=== PATIENT | male | born 1990 | race Caucasian/White ===

== ENCOUNTER 2020-02-20 10:09 | Emergency (ER) | payer OTHER, SELFPAY ==
[2020-02-20 10:17] VITALS: BP 128/88; PULSE 112; RESP 18; O2SAT 100; BMI 32.3
--- NOTE | 2020-02-20 10:34 | XR_ITS ---
EXAMINATION: XR CHEST CLINICAL INFORMATION: Pleuritic chest pain COMPARISON: Previous chest x-ray April 2018 TECHNIQUE: Frontal view of the chest was obtained. FINDINGS: No significant abnormality is noted involving the heart, lungs, mediastinum, bony thorax or soft tissues. XR/XR chest 1V IMPRESSION: Unremarkable examination.
--- NOTE | 2020-02-20 10:35 | ED.ABDPAIN ---
HPI - Abdominal Pain General Chief Complaint: Abdominal Pain Stated Complaint: abd and back pain Time Seen by Provider: 02/20/20 10:14 Source: patient Mode of arrival: ambulatory Limitations: no limitations History of Present Illness HPI narrative: 29 y/o male with history of anxiety, depression, alcohol abuse and dependence, and HTN presents to the ED with 2 days of right sided abdominal pain that started after a prolonged drinking binge. He states he has not had any alcohol in the last 2 days due to the pain. It is constant and has migrated from RUQ to his right flank and now his middle back. He denies N/V, diarrhea, fever, chills. MD elicited complaint: abdominal pain Onset (ago): day(s) (2) Pain Consistency: constant Location: RUQ Severity: moderate Quality: aching Migration to: R flank and other (back) Exacerbating factors: other (deep inspiration ) Relieving factors: nothing Context: history of similar episodes Associated symptoms: denies other symptoms Related Data Previous Rx's Medication Instructions Recorded alprazolam 1 mg tablet 1 mg PO TID PRN #90 tab 12/18/19 lisinopril 20 mg tablet 20 mg PO DAILY #90 tab 12/25/19 Allergies Allergy/AdvReac Type Severity Reaction Status Date / Time No Known Allergies Allergy Unverified 11/21/19 16:33 [No Known Allergies*] Review of Systems Review of Systems Constitutional: No Fever, No Chills ENT/Mouth: No sore throat, No Swallowing Difficulty Cardiovascular: No Chest Pain, + SOB (due to abd pain), No Orthopnea, No Edema Respiratory: No Cough, No Sputum, No Wheezing, No dyspnea Gastrointestinal: No Nausea, No Vomiting, No Diarrhea, + abdominal Pain, No Hematochezia, No Melena Genitourinary: No Dysuria, No Urinary Frequency, No Hematuria Musculoskeletal: No joint pain, No Myalgias Skin: No Skin Lesions, + rash (chronic RUE_ Neuro: No Weakness, No Dizziness, No Headache Psych: + Anxiety/Panic, + Depression Heme/Lymph: No Bruising, No Lymphadenopathy Endocrine: No Polyuria, No Polydipsia Physical Exam Vital Signs: Vital Signs: Last Vital Signs Temp 98.2 F 02/20/20 12:00 Pulse 95 02/20/20 12:00 Resp 16 02/20/20 12:00 BP 138/81 02/20/20 12:00 Pulse Ox 99 02/20/20 12:00 Body Mass Index 32.3 Appearance: Alert. Oriented X3. No acute distress. Eyes: Pupils equal, round and reactive to light. ENT: Pharynx normal. Neck: Normal inspection. Neck supple. CVS: Tachycardic, regular rhythm. Pulses normal. Respiratory: No respiratory distress. Breath sounds normal. Abdomen: Soft and nontender. no hepatosplenomegaly. +BS x4 Skin: Skin warm and dry. entire right upper extremity with erythematous macular rash, slightly warm to touch, non-tender, no excoriations, papules, or pustules. NV intact. Extremities: No lower extremity edema. Neuro: Oriented X 3. No motor deficit. No sensory deficit. Course Course Course Narrative: 29 y/o male with history of alcoholism presenting with right RUQ pain that radiates to his back. Pain is worse with deep inspiration. No N/V/D. Tachycardic on arrival but non-toxic appearing, question early ETOH withdrawal, slightly anxious. Abd exam is benign. Will check LFTs, lipase, CBC, chem 10 as well as CXR given his symptoms are worse with deep breathing. No COVID symptoms. Dispo pending results and improvement. Reevaluation(s) Reevaluation #1: Lab workup is unremarkable aside from slightl AST/ALT elevation consistent with mild alcoholic hepatitis. Bilirubins and lipase are normal. Will get abd u/s for further evalution. Reevaluation #2: Abd U/S shows normal pancreas, no gallbladder stone, wall thickening or ductal dilitation, no right hydronephrosis. Discussed imaging and lab results with patient. We discussed ETOH as main culprit for his pain, discussed possible alcoholic hepatitis and importance of abstinence. He is willing to discuss detox options with [facility]. Reevaluation #3: Patient declined detox at this time. MAT information provided to patient and he expressed understanding that he needs to make the effort and call. He is stable for discharge. 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 Lab Data Attestation: I reviewed the patient's lab results. Result diagrams: 02/20/20 10:38 02/20/20 10:38 Labs: Lab Results 02/20/20 02/20/20 02/20/20 Range/Units 10:38 10:38 10:46 WBC 9.7 (4.8-10.8) X10*3/uL RBC 4.79 (4.60-5.80) X10*6/uL Hgb 15.9 (14.0-18.0) g/dl Hct 47.1 (42-52) % MCV 98.3 H (80-98) fL MCH 33.2 H (27.0-33.0) pg MCHC 33.8 (31.0-36.0) g/dl RDW 12.5 (11.0-16.0) % Plt Count 331 (160-400) X10*3/uL MPV 8.8 L (9.4-12.4) fL Immature Gran % (Auto) 0.8 H (0.0-0.4) % Neut % (Auto) 65.5 (45-73) % Lymph % (Auto) 15.4 L (20-40) % [place] % (Auto) 16.7 H (2-11) % Eos % (Auto) 1.0 (0-4) % Baso % (Auto) 0.6 (0-2) % Lymph # (Auto) 1.5 (1.2-4.9) X10*3/uL [place] # (Auto) 1.6 H (0.1-1.2) X10*3/uL Eos # (Auto) 0.1 (0.0-0.4) X10*3/uL Baso # (Auto) 0.1 (0.0-0.2) X10*3/uL Abs Immat Gran (auto) 0.08 H (0.00-0.03) X10*3/uL Absolute Neuts (auto) 6.4 (2.0-8.3) X10*3/uL Absolute Nucleated RBC 0.000 (0.0-0.012) X10*3/uL Nucleated RBC % (auto) 0.0 (0.0-0.2) /100WBC Smear Tech's Comments VERIFIED Sodium 137 (135-145) mmol/L Potassium 4.1 (3.3-5.1) mmol/l Chloride 104 (96-108) mmol/L Carbon Dioxide 22 (22-29) mmol/L Anion Gap 15 (12-20) BUN 8 L (9-16) mg/dL Creatinine 0.58 (0.5-1.4) mg/dL Estim Creat Clear Calc 228.9 Estimated GFR > 60 Random Glucose 101 (60-115) mg/dL Calcium 9.0 (8.4-10.2) mg/dL Magnesium 1.9 (1.6-2.6) mg/dL Total Bilirubin 1.0 (0.0-1.0) mg/dL Direct Bilirubin 0.4 (0.0-0.5) mg/dL AST 57 H (5-37) U/L ALT 153 H (0-40) U/L Alkaline Phosphatase 64 (39-117) U/L Total Protein 6.7 (6.5-8.0) g/dL Albumin 4.2 (3.5-5.0) g/dL Lipase 27 (8-78) U/L Urine Color YELLOW Urine Appearance HAZY Urine pH 7.0 (5.0-8.0) Ur Specific [place] 1.020 (1.005-1.025) Urine Protein NEG (NEG-TRACE) MG/DL Urine Glucose (UA) NEG (NEG) MG/DL Urine Ketones NEG (NEG) MG/DL Urine Blood NEG (NEG) Urine Nitrite NEG (NEG) Ur Leukocyte Esterase NEG (NEG) Urine Opiates Screen (Not Detect) Ur Barbiturates Screen (Not Detect) Ur Phencyclidine Scrn (Not Detect) Ur Amphetamines Screen (Not Detect) U Benzodiazepines Scrn (Not Detect) Urine Cocaine Screen (Not Detect) U Marijuana (THC) Screen (Not Detect) 02/20/20 Range/Units 10:47 WBC (4.8-10.8) X10*3/uL RBC (4.60-5.80) X10*6/uL Hgb (14.0-18.0) g/dl Hct (42-52) % MCV (80-98) fL MCH (27.0-33.0) pg MCHC (31.0-36.0) g/dl RDW (11.0-16.0) % Plt Count (160-400) X10*3/uL MPV (9.4-12.4) fL Immature Gran % (Auto) (0.0-0.4) % Neut % (Auto) (45-73) % Lymph % (Auto) (20-40) % [place] % (Auto) (2-11) % Eos % (Auto) (0-4) % Baso % (Auto) (0-2) % Lymph # (Auto) (1.2-4.9) X10*3/uL [place] # (Auto) (0.1-1.2) X10*3/uL Eos # (Auto) (0.0-0.4) X10*3/uL Baso # (Auto) (0.0-0.2) X10*3/uL Abs Immat Gran (auto) (0.00-0.03) X10*3/uL Absolute Neuts (auto) (2.0-8.3) X10*3/uL Absolute Nucleated RBC (0.0-0.012) X10*3/uL Nucleated RBC % (auto) (0.0-0.2) /100WBC Smear Tech's Comments Sodium (135-145) mmol/L Potassium (3.3-5.1) mmol/l Chloride (96-108) mmol/L Carbon Dioxide (22-29) mmol/L Anion Gap (12-20) BUN (9-16) mg/dL Creatinine (0.5-1.4) mg/dL Estim Creat Clear Calc Estimated GFR Random Glucose (60-115) mg/dL Calcium (8.4-10.2) mg/dL Magnesium (1.6-2.6) mg/dL Total Bilirubin (0.0-1.0) mg/dL Direct Bilirubin (0.0-0.5) mg/dL AST (5-37) U/L ALT (0-40) U/L Alkaline Phosphatase (39-117) U/L Total Protein (6.5-8.0) g/dL Albumin (3.5-5.0) g/dL Lipase (8-78) U/L Urine Color Urine Appearance Urine pH (5.0-8.0) Ur Specific [place] (1.005-1.025) Urine Protein (NEG-TRACE) MG/DL Urine Glucose (UA) (NEG) MG/DL Urine Ketones (NEG) MG/DL Urine Blood (NEG) Urine Nitrite (NEG) Ur Leukocyte Esterase (NEG) Urine Opiates Screen Not Detected (Not Detect) Ur Barbiturates Screen Not Detected (Not Detect) Ur Phencyclidine Scrn Not Detected (Not Detect) Ur Amphetamines Screen Not Detected (Not Detect) U Benzodiazepines Scrn POSITIVE H (Not Detect) Urine Cocaine Screen Not Detected (Not Detect) U Marijuana (THC) Screen Not Detected (Not Detect) Critical Care Time Critical Care Time Critical Care Time: No Discharge Plan Discharge Clinical Impression: Transaminitis Alcohol dependence Qualifiers: Substance use status: alcohol-induced mood disorder Qualified Code(s): F10.24 - Alcohol dependence with alcohol-induced mood disorder Patient Disposition: Home, Self-Care Instructions: Abuse of Alcohol (ED), Alcohol Use Disorder (ED) Additional Instructions: Your lab workup today showed mild elevation of your liver enzymes, this is due to your alcohol abuse. Your ultrasound of your abdomen was normal. It is important that you stop drinking alcohol. Please call the numbers on the resources provided to you to help you quit. Follow up with your doctor this week. If you develop worsening abdominal pain, nausea, vomiting, or any other concerning symptom come back to the ER for further evaluation. Prescriptions: No Action alprazolam 1 mg tablet 1 mg PO TID PRN (Reason: anxiety) Qty: 90 RF: 5 lisinopril 20 mg tablet 20 mg PO DAILY Qty: 90 RF: 8 PMFSH Past Medical History Attestation statement: The following information was validated with the patient. Medical History (Updated 02/20/20 @ 13:47 by MARVEL Garrett) Alcohol dependence Anxiety Depression Hypertension Social History Social History (Updated 02/20/20 @ 10:40 by MARVEL Garrett) Alcohol intake: current Alcohol intake frequency: 3 or more drinks per day Alcohol type: hard liquor Smoking Status: Never smoker Use of substances other than those prescribed or required for medical reasons: No Substance Use Type: Marijuana Substance Use Frequency: Occasionally Last Used Substance: Days (ago) Currently Displaying Signs/Symptoms of Drug Intoxication Withdrawal: No Advance Directives: No Advance Directives Information Provided: No
[2020-02-20] MEDS: 0.9 % Sodium Chloride 1,000 ML 999 ML IVCONT (10:49)
[2020-02-20 10:52] LABS: Basophils Absolute Auto 0.1 X10*3/uL (0.0-0.2); Basophils Percent Auto 0.6 % (0-2); Eosinophils Absolute Auto 0.1 X10*3/uL (0.0-0.4); Hematocrit 47.1 % (42-52); Hemoglobin 15.9 g/dl (14.0-18.0); Imm Gran Abs Auto 0.08 X10*3/uL (0.00-0.03); Imm Gran Pct Auto 0.8 % (0.0-0.4); Lymphocytes Absolute Auto 1.5 X10*3/uL (1.2-4.9); Lymphocytes Percent Auto 15.4 % (20-40); MANUAL DIFF FLAG SCAN; Mean Corpuscular HGB Conc 33.8 g/dl (31.0-36.0); Mean Corpuscular Hemoglobin 33.2 pg (27.0-33.0); Mean Corpuscular Volume 98.3 fL (80-98); Mean Platelet Volume 8.8 fL (9.4-12.4); Monocytes Absolute Auto 1.6 X10*3/uL (0.1-1.2); Monocytes Percent Auto 16.7 % (2-11); Neutrophils Absolute Auto 6.4 X10*3/uL (2.0-8.3); Neutrophils Percent Auto 65.5 % (45-73); Platelet Count 331 X10*3/uL (160-400); Red Blood Count 4.79 X10*6/uL (4.60-5.80); Red Cell Distribution Width 12.5 % (11.0-16.0); SCAN SMEAR FLAG 1; White Blood Count 9.7 X10*3/uL (4.8-10.8)
[2020-02-20] MEDS: Morphine Sulfate 4 MG/ML CARTRIDGE IVPUSH (10:58)
[2020-02-20 11:03] LABS: Glucose Urine UA NEG (NEG); Leukocyte Esterase Urine NEG (NEG); Nitrite Urine NEG (NEG); Urine Blood NEG (NEG); Urine Ketones NEG (NEG); Urine Protein NEG (NEG-TRACE)
[2020-02-20 11:04] LABS: Appearance Urine HAZY; Color Urine YELLOW
[2020-02-20 11:16] LABS: Alanine Aminotransferase 153 U/L (0-40); Albumin Level 4.2 g/dL (3.5-5.0); Alkaline Phosphatase 64 U/L (39-117); Anion Gap 15 (12-20); Aspartate Amino Transferase 57 U/L (5-37); Bilirubin Direct 0.4 mg/dL (0.0-0.5); Blood Urea Nitrogen 8 mg/dL (9-16); Carbon Dioxide 22 mmol/L (22-29); Chloride 104 mmol/L (96-108); Creatinine Clr Calc Pharmacy 228.9; Estimated Glomerular Filt Rate > 60; Glucose Random 101 mg/dL (60-115); Lipase 27 U/L (8-78); Magnesium 1.9 mg/dL (1.6-2.6); Potassium 4.1 mmol/l (3.3-5.1); SLIDE REVIEW VERIFIED; Sodium 137 mmol/L (135-145); Total Protein 6.7 g/dL (6.5-8.0)
--- NOTE | 2020-02-20 11:18 | US_ITS ---
EXAMINATION: US ABDOMEN LIMITED CLINICAL INFORMATION: Right upper quadrant pain radiating to back. Elevated LFTs. COMPARISON: Report, ultrasound abdomen 05/04/2006. TECHNIQUE: Real-time imaging of the right upper quadrant abdominal viscera. FINDINGS: PANCREAS: The visualized pancreas is normal in size and contour. There is no pancreatic ductal distention or retroperitoneal effusion. Pancreatic tail is obscured by bowel gas and not completely imaged. LIVER: The liver is within normal size measuring 17 cm in length. There is increased hepatic parenchymal echogenicity consistent with hepatic steatosis. Liver surface is smooth. There is no visible hepatic parenchymal lesion. No intrahepatic biliary ductal dilatation. GALLBLADDER: The gallbladder shows no dilatation, wall thickening, calculus, or sludge. Sonographic negative Mckeon's sign. There is a small polyp projecting into the lumen nondependent side measuring only 3 mm. No pericholecystic fluid. COMMON BILE DUCT: Normal in caliber measuring 0.4 cm in diameter. RIGHT KIDNEY: Normal. No hydronephrosis. No renal calculi or focal parenchymal lesions. The kidney measures 13.6 cm in maximum dimension. FREE FLUID: None. US/US abdomen limited IMPRESSION: 1. Tiny gallbladder polyp, 3 mm. No stone, wall thickening, or ductal dilatation. 2. Visualized pancreas is normal in size. Pancreatic duct normal. No retroperitoneal effusion. 3. No right hydronephrosis.
[2020-02-20 11:25] LABS: Amphetamine Screen Urine Not Detected (Not Detect); Barbiturates, Urine Not Detected (Not Detect); Benzodiazepines Screen Urine POSITIVE (Not Detect); Cannabinoid Screen Urine Not Detected (Not Detect); Cocaine Screen Urine Not Detected (Not Detect); Opiate Screen Urine Not Detected (Not Detect); Phencyclidine Screen Urine Not Detected (Not Detect)
[2020-02-20 12:00] VITALS: BP 138/81; PULSE 95; RESP 16; TEMP 36.8; O2SAT 99
== END 2020-02-20 13:57 | disposition home or self-care (01) ==
PROVIDERS: Physician Assistant; Emergency Provider Emergency Medicine Emergency Medical Services; PCP Internal Medicine
DX: R10.11 Right upper quadrant pain (principal); F10.24 Alcohol dependence with alcohol-induced mood disorder; R74.01 Elevation of levels of liver transaminase levels; I10 Essential (primary) hypertension; F12.90 Cannabis use, unspecified, uncomplicated; Z79.899 Other long term (current) drug therapy
CPT/HCPCS: 36415; 71045; 76705; 80048; 80076; 80307; 81003; 83690; 83735; 85025; 96361; 96374; 99284; J2270

== ENCOUNTER 2020-02-20 18:25 | Emergency (ER) | payer OTHER, SELFPAY ==
--- NOTE | 2020-02-20 18:29 | ED_ITS ---
HPI - Abdominal Pain General Chief Complaint: Abdominal Pain Stated Complaint: abdominal pain Time Seen by Provider: 02/20/20 18:29 Source: patient Mode of arrival: ambulatory Limitations: no limitations History of Present Illness HPI narrative: RUQ pain pleuritic in nature feels like he can't take a deep breath at times x 2 days MD elicited complaint: abdominal pain Pertinent past history: other (alcoholism) Onset (ago): day(s) (2) Pain Consistency: constant Location: chest and RUQ Severity: moderate Quality: stabbing and sharp Radiation: R flank Migration to: no migration Exacerbating factors: movement and other (deep breaths) Relieving factors: nothing Context: other (drank for many days in a row) Associated symptoms: denies other symptoms Related Data Previous Rx's Medication Instructions Recorded alprazolam 1 mg tablet 1 mg PO TID PRN #90 tab 12/18/19 lisinopril 20 mg tablet 20 mg PO DAILY #90 tab 12/25/19 chlordiazepoxide HCl 25 mg PO Q6H PRN #20 cap 02/20/20 omeprazole 20 mg PO DAILY 14 Days #14 cap 02/20/20 ondansetron 4 mg PO Q8H PRN #20 tab 02/20/20 Allergies Allergy/AdvReac Type Severity Reaction Status Date / Time No Known Allergies Allergy Unverified 11/21/19 16:33 [No Known Allergies*] Review of Systems Review of Systems Constitutional : No Weight loss, No Fever, No Chills ENT/Mouth : No sore throat, No Rhinorrhea Eyes: No Swelling, No Redness Cardiovascular : pos Chest Pain, No SOB, NoEdema Respiratory : No Cough, No Sputum, No Wheezing Gastrointestinal : Positive Nausea, no Vomiting, no Diarrhea, positive abdominal Pain, No Hematochezia, No Melena Genitourinary : No Dysuria, No Urinary Frequency, No Hematuria, No Urgency Musculoskeletal : No joint pain, No Myalgias, No Joint Swelling Skin : No Skin Lesions, No rash Neuro : No Weakness, No Numbness, No Dizziness, No Headache Psych : No Anxiety/Panic, No Depression Heme/Lymph: No Bruising, No Lymphadenopathy Endocrine : No Polyuria, No Polydipsia All other systems reviewed and are negative. Physical Exam Vital Signs: Vital Signs: Last Vital Signs Temp 99.3 F 02/20/20 18:34 Pulse 101 H 12/17/20 20:13 Resp 16 02/20/20 20:13 BP 130/83 02/20/20 20:13 Pulse Ox 99 02/20/20 20:13 Body Mass Index 34.4 Appearance: Alert. Oriented X3. No acute distress. Anxious Eyes: Pupils equal, round and reactive to light. ENT: Pharynx normal. Neck: Normal inspection. Neck supple. CVS: tachycardic heart rate and rhythm. Pulses normal. Respiratory: No respiratory distress. Breath sounds decreased RLL + splinting Abdomen: Soft and mild RUQ tenderness. Skin: Skin warm and dry. Normal skin color. Normal skin turgor. Extremities: No lower extremity edema. No calf ttp Neuro: Oriented X 3. No motor deficit. No sensory deficit. Course Course Course Narrative: negative workup, patient feels much better, likely ETOH gastritis MDM - Abdominal Pain MDM Narrative Medical decision making narrative: 29 yo male with recent ETOH binge now with RUQ and R pleuritic chest pain just had labs, US that was not overly concerning, he went home from the ED drank some tea and then had return of pain, he is tachycardic at this time will need labs, IVF, IV medications, ddimer - if positive will obtain CTA of chest for PE vs CT scan of abdomen, dispo per results and findings. Lab Data Result diagrams: 02/20/20 18:50 02/20/20 18:50 Labs: Lab Results 02/20/20 02/20/20 02/20/20 Range/Units 18:50 18:50 18:50 WBC 11.4 H (4.8-10.8) X10*3/uL RBC 4.73 (4.60-5.80) X10*6/uL Hgb 15.9 (14.0-18.0) g/dl Hct 47.1 (42-52) % MCV 99.6 H (80-98) fL MCH 33.6 H (27.0-33.0) pg MCHC 33.8 (31.0-36.0) g/dl RDW 12.7 (11.0-16.0) % Plt Count 366 (160-400) X10*3/uL MPV 9.0 L (9.4-12.4) fL Immature Gran % (Auto) 0.8 H (0.0-0.4) % Neut % (Auto) 72.0 (45-73) % Lymph % (Auto) 11.0 L (20-40) % [place] % (Auto) 15.6 H (2-11) % Eos % (Auto) 0.2 (0-4) % Baso % (Auto) 0.4 (0-2) % Lymph # (Auto) 1.3 (1.2-4.9) X10*3/uL [place] # (Auto) 1.8 H (0.1-1.2) X10*3/uL Eos # (Auto) 0.0 (0.0-0.4) X10*3/uL Baso # (Auto) 0.1 (0.0-0.2) X10*3/uL Abs Immat Gran (auto) 0.09 H (0.00-0.03) X10*3/uL Absolute Neuts (auto) 8.2 (2.0-8.3) X10*3/uL Absolute Nucleated RBC 0.000 (0.0-0.012) X10*3/uL Nucleated RBC % (auto) 0.0 (0.0-0.2) /100WBC D-Dimer NG/ML Sodium 136 (135-145) mmol/L Potassium 4.0 (3.3-5.1) mmol/l Chloride 99 (96-108) mmol/L Carbon Dioxide 24 (22-29) mmol/L Anion Gap 17 (12-20) BUN 6 L (9-16) mg/dL Creatinine 0.65 (0.5-1.4) mg/dL Estim Creat Clear Calc 210.8 Estimated GFR > 60 Random Glucose 84 (60-115) mg/dL Lactic Acid 1.1 (0.5-2.0) mmol/L Calcium 9.3 (8.4-10.2) mg/dL Magnesium (1.6-2.6) mg/dL Total Bilirubin (0.0-1.0) mg/dL Direct Bilirubin (0.0-0.5) mg/dL AST (5-37) U/L ALT (0-40) U/L Alkaline Phosphatase (39-117) U/L Lactate Dehydrogenase 194 (118-273) U/L Troponin I High Sens (<3.5-35.0) ng/L Total Protein (6.5-8.0) g/dL Albumin (3.5-5.0) g/dL Lipase 29 (8-78) U/L Ethyl Alcohol mg/dL COVID-19 (DUSTIN) (Negative) COVID-19 Clin Com 02/20/20 02/20/20 02/20/20 Range/Units 18:50 18:50 18:51 WBC (4.8-10.8) X10*3/uL RBC (4.60-5.80) X10*6/uL Hgb (14.0-18.0) g/dl Hct (42-52) % MCV (80-98) fL MCH (27.0-33.0) pg MCHC (31.0-36.0) g/dl RDW (11.0-16.0) % Plt Count (160-400) X10*3/uL MPV (9.4-12.4) fL Immature Gran % (Auto) (0.0-0.4) % Neut % (Auto) (45-73) % Lymph % (Auto) (20-40) % [place] % (Auto) (2-11) % Eos % (Auto) (0-4) % Baso % (Auto) (0-2) % Lymph # (Auto) (1.2-4.9) X10*3/uL [place] # (Auto) (0.1-1.2) X10*3/uL Eos # (Auto) (0.0-0.4) X10*3/uL Baso # (Auto) (0.0-0.2) X10*3/uL Abs Immat Gran (auto) (0.00-0.03) X10*3/uL Absolute Neuts (auto) (2.0-8.3) X10*3/uL Absolute Nucleated RBC (0.0-0.012) X10*3/uL Nucleated RBC % (auto) (0.0-0.2) /100WBC D-Dimer 1531 NG/ML Sodium (135-145) mmol/L Potassium (3.3-5.1) mmol/l Chloride (96-108) mmol/L Carbon Dioxide (22-29) mmol/L Anion Gap (12-20) BUN (9-16) mg/dL Creatinine (0.5-1.4) mg/dL Estim Creat Clear Calc Estimated GFR Random Glucose (60-115) mg/dL Lactic Acid (0.5-2.0) mmol/L Calcium (8.4-10.2) mg/dL Magnesium 1.9 (1.6-2.6) mg/dL Total Bilirubin 1.0 (0.0-1.0) mg/dL Direct Bilirubin 0.5 (0.0-0.5) mg/dL AST 57 H (5-37) U/L ALT 156 H (0-40) U/L Alkaline Phosphatase 71 (39-117) U/L Lactate Dehydrogenase (118-273) U/L Troponin I High Sens (<3.5-35.0) ng/L Total Protein 7.2 (6.5-8.0) g/dL Albumin 4.4 (3.5-5.0) g/dL Lipase (8-78) U/L Ethyl Alcohol < 10 mg/dL COVID-19 (DUSTIN) (Negative) COVID-19 Clin Com 02/20/20 02/20/20 Range/Units 18:51 19:09 WBC (4.8-10.8) X10*3/uL RBC (4.60-5.80) X10*6/uL Hgb (14.0-18.0) g/dl Hct (42-52) % MCV (80-98) fL MCH (27.0-33.0) pg MCHC (31.0-36.0) g/dl RDW (11.0-16.0) % Plt Count (160-400) X10*3/uL MPV (9.4-12.4) fL Immature Gran % (Auto) (0.0-0.4) % Neut % (Auto) (45-73) % Lymph % (Auto) (20-40) % [place] % (Auto) (2-11) % Eos % (Auto) (0-4) % Baso % (Auto) (0-2) % Lymph # (Auto) (1.2-4.9) X10*3/uL [place] # (Auto) (0.1-1.2) X10*3/uL Eos # (Auto) (0.0-0.4) X10*3/uL Baso # (Auto) (0.0-0.2) X10*3/uL Abs Immat Gran (auto) (0.00-0.03) X10*3/uL Absolute Neuts (auto) (2.0-8.3) X10*3/uL Absolute Nucleated RBC (0.0-0.012) X10*3/uL Nucleated RBC % (auto) (0.0-0.2) /100WBC D-Dimer NG/ML Sodium (135-145) mmol/L Potassium (3.3-5.1) mmol/l Chloride (96-108) mmol/L Carbon Dioxide (22-29) mmol/L Anion Gap (12-20) BUN (9-16) mg/dL Creatinine (0.5-1.4) mg/dL Estim Creat Clear Calc Estimated GFR Random Glucose (60-115) mg/dL Lactic Acid (0.5-2.0) mmol/L Calcium (8.4-10.2) mg/dL Magnesium (1.6-2.6) mg/dL Total Bilirubin (0.0-1.0) mg/dL Direct Bilirubin (0.0-0.5) mg/dL AST (5-37) U/L ALT (0-40) U/L Alkaline Phosphatase (39-117) U/L Lactate Dehydrogenase (118-273) U/L Troponin I High Sens < 3.5 (<3.5-35.0) ng/L Total Protein (6.5-8.0) g/dL Albumin (3.5-5.0) g/dL Lipase (8-78) U/L Ethyl Alcohol mg/dL COVID-19 (DUSTIN) Negative (Negative) COVID-19 Clin Com See Note ECG Data Attestation: I personally reviewed and interpreted this ECG as follows: ECG interpretation date: 02/20/20 ECG interpretation time: 18:54 Interpretation: Rate: 111 Rhythm: sinus tachycardia [place]: normal Normal P waves. Normal CHET. Normal QRS complex. ST T wave : no WILLIE qTC: normal prior studies: no acute ischemia The study has been interpreted contemporaneously by me. . Discharge Plan Discharge Clinical Impression: Acute alcoholic gastritis Qualifiers: Gastritis bleeding: without bleeding Qualified Code(s): K29.20 - Alcoholic gastritis without bleeding Patient Disposition: Home, Self-Care Instructions: Gastritis (ED) Additional Instructions: return to ED for any worsening symptoms or concerns you had normal labs, EKG, cardiac markers, CT scan of abdomen and chest - no infections, no blood clots your COVID test was negative Prescriptions: New ondansetron 4 mg tablet,disintegrating 4 mg PO Q8H PRN (Reason: nausea and vomiting) Qty: 20 RF: 0 omeprazole 20 mg capsule,delayed release(DR/EC) 20 mg PO DAILY 14 Days Qty: 14 RF: 0 chlordiazepoxide HCl 25 mg capsule 25 mg PO Q6H PRN (Reason: alcohol withdrawal) Qty: 20 RF: 0 No Action alprazolam 1 mg tablet 1 mg PO TID PRN (Reason: anxiety) Qty: 90 RF: 5 lisinopril 20 mg tablet 20 mg PO DAILY Qty: 90 RF: 8 Referrals: Doni Cazares MD [Primary Care Provider] - 2 days (if not better) Stand Alone Forms: Work/School Release [facility] Past Medical History Attestation statement: The following information was validated with the patient. Medical History Alcohol dependence Anxiety Depression Hypertension Social History Social History Alcohol intake: current Alcohol intake frequency: 3 or more drinks per day Alcohol type: hard liquor Smoking Status: Never smoker Use of substances other than those prescribed or required for medical reasons: No Substance Use Type: Marijuana Advance Directives: No Advance Directives Information Provided: Yes
--- NOTE | 2020-02-20 18:31 | CT_ITS ---
EXAMINATION: CTA CHEST, ABDOMEN AND PELVIS WITH CONTRAST CLINICAL INFORMATION: Abdominal pain and vomiting. COMPARISON: None TECHNIQUE: 5 mm thin thin axial and reformatted 3 mm thin sagittal and coronal images were obtained after rapid IV administration of mL of Omnipaque 350. Subsequently 5 minutes and axial and reformatted three-minute thin axial images of abdomen and pelvis were obtained. DLP [id number]. FINDINGS: Chest: There is suboptimal contrast within pulmonary arteries. No main, right or left pulmonary artery filling defect or narrowing seen. The thoracic aorta is of normal caliber without aneurysm or dissection. Central trachea and bronchi are widely patent. No abnormal mediastinal or hilar lymph nodes seen. The thyroid lobes are symmetrical and normal. Both lungs are well-expanded and clear of acute pneumonic process. Minimal dependent right basilar atelectasis seen. There is no pleural effusion or thickening. The axilla and chest wall appears unremarkable. Imaging through the upper abdomen reveals diffusely attenuated liver without focal lesion. Partially visualized spleen and pancreas appears unremarkable. CT/CT abdomen pelvis w con IMPRESSION: No evidence of PE. No evidence of aortic aneurysm or dissection. Diffuse fatty steatosis without focal lesion.
[2020-02-20 18:34] VITALS: PULSE 119; RESP 18; TEMP 37.4; O2SAT 96; BMI 34.4
--- NOTE | 2020-02-20 18:38 | ECG_ITS ---
Test Reason : TACHYCARDIA Blood Pressure : / mmHG Vent. Rate : 111 BPM Atrial Rate : 111 BPM P-R Int : 144 ms QRS Dur : 086 ms QT Int : 328 ms P-R-T Axes : 045 018 044 degrees QTc Int : 446 ms Sinus tachycardia Otherwise normal ECG When compared with ECG of 03-FEB-2018 10:54, No significant change was found Referred By: Lianna Ramírez Electronically Signed By:Dilip Reyes
[2020-02-20] MEDS: 0.9 % Sodium Chloride 1,000 ML 999 ML IVCONT (18:54)
[2020-02-20] MEDS: diphenhydrAMINE HCL 50 MG/ML VIAL 25 MG IVPUSH (18:54)
[2020-02-20 18:55] VITALS: RESP 18
[2020-02-20] MEDS: Famotidine/PF 20 MG/2 ML VIAL IVPUSH (18:55)
[2020-02-20] MEDS: Morphine Sulfate 4 MG/ML CARTRIDGE IVPUSH (18:55)
[2020-02-20] MEDS: Metoclopramide HCl 10 MG/2 ML VIAL 5 MG IVPUSH (18:55)
[2020-02-20 19:08] VITALS: PULSE 105; RESP 16; O2SAT 99
[2020-02-20 19:18] LABS: Basophils Absolute Auto 0.1 X10*3/uL (0.0-0.2); Basophils Percent Auto 0.4 % (0-2); Eosinophils Percent Auto 0.2 % (0-4); Hematocrit 47.1 % (42-52); Hemoglobin 15.9 g/dl (14.0-18.0); Imm Gran Abs Auto 0.09 X10*3/uL (0.00-0.03); Imm Gran Pct Auto 0.8 % (0.0-0.4); Lymphocytes Absolute Auto 1.3 X10*3/uL (1.2-4.9); Mean Corpuscular HGB Conc 33.8 g/dl (31.0-36.0); Mean Corpuscular Hemoglobin 33.6 pg (27.0-33.0); Mean Corpuscular Volume 99.6 fL (80-98); Monocytes Absolute Auto 1.8 X10*3/uL (0.1-1.2); Monocytes Percent Auto 15.6 % (2-11); Neutrophils Absolute Auto 8.2 X10*3/uL (2.0-8.3); Platelet Count 366 X10*3/uL (160-400); Red Blood Count 4.73 X10*6/uL (4.60-5.80); Red Cell Distribution Width 12.7 % (11.0-16.0); SCAN SMEAR FLAG 1; White Blood Count 11.4 X10*3/uL (4.8-10.8)
[2020-02-20 19:21] LABS: MANUAL DIFF FLAG NO
[2020-02-20 19:35] LABS: D Dimer 1531 NG/ML
[2020-02-20 19:35] LABS: COVID-19 Test Negative (Negative)
[2020-02-20 19:36] LABS: Lactic Acid 1.1 mmol/L (0.5-2.0)
[2020-02-20 19:37] LABS: Ethanol < 10 mg/dL
--- NOTE | 2020-02-20 19:38 | CT_ITS ---
EXAMINATION: CTA CHEST, ABDOMEN AND PELVIS WITH CONTRAST CLINICAL INFORMATION: Abdominal pain and vomiting. COMPARISON: None TECHNIQUE: 5 mm thin thin axial and reformatted 3 mm thin sagittal and coronal images were obtained after rapid IV administration of mL of Omnipaque 350. Subsequently 5 minutes and axial and reformatted three-minute thin axial images of abdomen and pelvis were obtained. DLP [id number]. FINDINGS: Chest: There is suboptimal contrast within pulmonary arteries. No main, right or left pulmonary artery filling defect or narrowing seen. The thoracic aorta is of normal caliber without aneurysm or dissection. Central trachea and bronchi are widely patent. No abnormal mediastinal or hilar lymph nodes seen. The thyroid lobes are symmetrical and normal. Both lungs are well-expanded and clear of acute pneumonic process. Minimal dependent right basilar atelectasis seen. There is no pleural effusion or thickening. The axilla and chest wall appears unremarkable. Imaging through the upper abdomen reveals diffusely attenuated liver without focal lesion. Partially visualized spleen and pancreas appears unremarkable. CT/CT angio chest PE protocol IMPRESSION: No evidence of PE. No evidence of aortic aneurysm or dissection. Diffuse fatty steatosis without focal lesion.
[2020-02-20 19:39] LABS: Anion Gap 17 (12-20); Blood Urea Nitrogen 6 mg/dL (9-16); Calcium 9.3 mg/dL (8.4-10.2); Carbon Dioxide 24 mmol/L (22-29); Chloride 99 mmol/L (96-108); Creatinine Clr Calc Pharmacy 210.8; Estimated Glomerular Filt Rate > 60; Glucose Random 84 mg/dL (60-115); Lactate Dehydrogenase 194 U/L (118-273); Lipase 29 U/L (8-78); Sodium 136 mmol/L (135-145)
[2020-02-20 19:42] LABS: Troponin-I High Sensitivity < 3.5 ng/L (<3.5-35.0)
[2020-02-20 19:46] LABS: Alanine Aminotransferase 156 U/L (0-40); Albumin Level 4.4 g/dL (3.5-5.0); Alkaline Phosphatase 71 U/L (39-117); Aspartate Amino Transferase 57 U/L (5-37); Bilirubin Direct 0.5 mg/dL (0.0-0.5); Magnesium 1.9 mg/dL (1.6-2.6); Total Protein 7.2 g/dL (6.5-8.0)
[2020-02-20] MEDS: iohexoL 350 MG/ML 100 ML INFUS..BTL IV (20:05)
[2020-02-20 20:13] VITALS: BP 130/83; PULSE 101; RESP 16; O2SAT 99
[2020-02-20] MEDS: chlordiazePOXIDE HCl 25 MG CAPSULE 50 MG PO (20:53)
== END 2020-02-20 21:09 | disposition home or self-care (01) ==
PROVIDERS: Emergency Provider Emergency Medicine; PCP Internal Medicine
DX: K29.20 Alcoholic gastritis without bleeding (principal); F10.20 Alcohol dependence, uncomplicated; Y90.0 Blood alcohol level of less than 20 mg/100 ml; R10.11 Right upper quadrant pain; Z20.828 Contact with and (suspected) exposure to other viral communicable diseases; Z79.899 Other long term (current) drug therapy; F12.90 Cannabis use, unspecified, uncomplicated
CPT/HCPCS: 36415; 71275; 74177; 80048; 80076; 80320; 83605; 83615; 83690; 83735; 84484; 85025; 85379; 87635; 93005; 96361; 96374; 96375; 99284; J1200; J2270; J2765; Q9967

== ENCOUNTER 2020-03-11 10:04 | Outpatient (REF) | payer OTHER, SELFPAY ==
[2020-03-11 11:04] LABS: MANUAL DIFF FLAG NO
[2020-03-11 11:14] LABS: Basophils Absolute Auto 0.1 X10*3/uL (0.0-0.2); Basophils Percent Auto 0.8 % (0-2); Eosinophils Absolute Auto 0.5 X10*3/uL (0.0-0.4); Eosinophils Percent Auto 5.3 % (0-4); Hematocrit 46.6 % (42-52); Hemoglobin 15.1 g/dl (14.0-18.0); Imm Gran Abs Auto 0.11 X10*3/uL (0.00-0.03); Imm Gran Pct Auto 1.2 % (0.0-0.4); Lymphocytes Absolute Auto 1.8 X10*3/uL (1.2-4.9); Lymphocytes Percent Auto 19.6 % (20-40); Mean Corpuscular HGB Conc 32.4 g/dl (31.0-36.0); Mean Corpuscular Hemoglobin 32.8 pg (27.0-33.0); Mean Corpuscular Volume 101.1 fL (80-98); Mean Platelet Volume 9.2 fL (9.4-12.4); Monocytes Absolute Auto 1.3 X10*3/uL (0.1-1.2); Monocytes Percent Auto 14.3 % (2-11); Neutrophils Absolute Auto 5.4 X10*3/uL (2.0-8.3); Neutrophils Percent Auto 58.8 % (45-73); Platelet Count 385 X10*3/uL (160-400); Red Blood Count 4.61 X10*6/uL (4.60-5.80); Red Cell Distribution Width 13.2 % (11.0-16.0); White Blood Count 9.2 X10*3/uL (4.8-10.8)
[2020-03-11 12:00] LABS: Anion Gap 19 (12-20); Blood Urea Nitrogen 16 mg/dL (9-16); Calcium 8.9 mg/dL (8.4-10.2); Carbon Dioxide 24 mmol/L (22-29); Chloride 101 mmol/L (96-108); Estimated Glomerular Filt Rate > 60; Glucose Random 95 mg/dL (60-115); Potassium 4.8 mmol/l (3.3-5.1); Sodium 139 mmol/L (135-145)
== END 2020-03-11 10:05 | disposition home or self-care (01) ==
LOC: HO.LAB 10:04
PROVIDERS: PCP Internal Medicine; Visit Provider Internal Medicine
DX: Z00.00 Encounter for general adult medical examination without abnormal findings (principal); R51.9 Headache, unspecified
CPT/HCPCS: 36415; 80048; 85025

== ENCOUNTER 2021-02-18 12:59 | Outpatient (REF) | payer OTHER, SELFPAY ==
[2021-02-18 14:28] LABS: MANUAL DIFF FLAG NO
[2021-02-18 14:50] LABS: Basophils Absolute Auto 0.1 X10*3/uL (0.0-0.2); Basophils Percent Auto 1.4 % (0-2); Eosinophils Absolute Auto 0.1 X10*3/uL (0.0-0.4); Eosinophils Percent Auto 1.5 % (0-4); Hematocrit 51.4 % (42.0-52.0); Hemoglobin 17.2 g/dl (14.0-18.0); Imm Gran Abs Auto 0.06 X10*3/uL (0.00-0.03); Imm Gran Pct Auto 0.8 % (0.0-0.4); Lymphocytes Absolute Auto 2.8 X10*3/uL (1.2-4.9); Lymphocytes Percent Auto 38.3 % (20-40); Mean Corpuscular HGB Conc 33.5 g/dl (31.0-36.0); Mean Corpuscular Hemoglobin 32.2 pg (27.0-33.0); Mean Corpuscular Volume 96.3 fL (80.0-98.0); Mean Platelet Volume 8.5 fL (9.4-12.4); Monocytes Absolute Auto 0.7 X10*3/uL (0.1-1.2); Monocytes Percent Auto 10.1 % (2-11); Neutrophils Absolute Auto 3.5 x10*3/uL (2.0-8.3); Neutrophils Percent Auto 47.9 % (45-73); Platelet Count 512 X10*3/uL (160-400); Red Blood Count 5.34 X10*6/uL (4.60-5.80); Red Cell Distribution Width 12.8 % (11.0-16.0); White Blood Count 7.3 X10*3/uL (4.8-10.8)
[2021-02-18 15:34] LABS: Alanine Aminotransferase 151 U/L (0-40); Albumin Level 4.6 g/dL (3.5-5.0); Alkaline Phosphatase 62 U/L (39-117); Anion Gap 16 (12-20); Aspartate Amino Transferase 65 U/L (5-37); Bilirubin Total 0.2 mg/dL (0.0-1.0); Blood Urea Nitrogen 11 mg/dL (9-16); Calcium 9.6 mg/dL (8.4-10.2); Carbon Dioxide 22 mmol/L (22-29); Chloride 110 mmol/L (96-108); Estimated Glomerular Filt Rate > 60; Gamma Glutamyl Transpeptidase 66 U/L (11-51); Glucose Random 89 mg/dL (60-115); Potassium 4.5 mmol/L (3.3-5.1); Sodium 143 mmol/L (135-145); Total Protein 7.6 g/dL (6.5-8.0)
== END 2021-02-18 13:00 | disposition home or self-care (01) ==
LOC: HO.LAB 12:59
PROVIDERS: PCP Internal Medicine; Visit Provider Nurse Practitioner Psychiatric/Mental Health
DX: F10.20 Alcohol dependence, uncomplicated (principal); F33.9 Major depressive disorder, recurrent, unspecified; Z79.899 Other long term (current) drug therapy
CPT/HCPCS: 36415; 80053; 80305; 82977; 85025; 99212

== ENCOUNTER → 2021-03-04 14:32 | Outpatient (BNVA) | payer OTHER, SELFPAY | PROVIDERS: PCP Internal Medicine; Visit Provider Nurse Practitioner Psychiatric/Mental Health | DX: Z51.81 Encounter for therapeutic drug level monitoring (principal); F10.20 Alcohol dependence, uncomplicated | CPT/HCPCS: 80305; 99212 ==

== ENCOUNTER → 2021-04-08 15:35 | Outpatient (BNVA) | payer OTHER, SELFPAY | PROVIDERS: PCP Internal Medicine; Visit Provider Nurse Practitioner Psychiatric/Mental Health | DX: F10.20 Alcohol dependence, uncomplicated (principal); Z79.899 Other long term (current) drug therapy | CPT/HCPCS: 80305; 99212 ==

== ENCOUNTER → 2021-04-22 15:23 | Outpatient (BNVA) | payer OTHER, SELFPAY | PROVIDERS: PCP Internal Medicine; Visit Provider Nurse Practitioner Psychiatric/Mental Health | DX: F10.20 Alcohol dependence, uncomplicated (principal); Z51.81 Encounter for therapeutic drug level monitoring; Z79.899 Other long term (current) drug therapy | CPT/HCPCS: 80305; 99212 ==

== ENCOUNTER → 2021-05-06 15:02 | Outpatient (BNVA) | payer OTHER, SELFPAY | PROVIDERS: PCP Internal Medicine; Visit Provider Nurse Practitioner Psychiatric/Mental Health | DX: F10.20 Alcohol dependence, uncomplicated (principal); Z51.81 Encounter for therapeutic drug level monitoring | CPT/HCPCS: 80305 ==

== ENCOUNTER → 2021-05-20 15:29 | Outpatient (BNVA) | payer OTHER, SELFPAY | PROVIDERS: PCP Internal Medicine; Visit Provider Nurse Practitioner Psychiatric/Mental Health | DX: Z51.81 Encounter for therapeutic drug level monitoring (principal); F11.20 Opioid dependence, uncomplicated | CPT/HCPCS: 80305 ==

== ENCOUNTER 2021-05-21 14:26 | Emergency (ER) | payer OTHER, SELFPAY ==
[2021-05-21 14:40] VITALS: BP 153/97; PULSE 132; RESP 18; TEMP 36.8; O2SAT 96; BMI 39.0
--- NOTE | 2021-05-21 15:35 | ECG_ITS ---
Test Reason : withdraw Blood Pressure : / mmHG Vent. Rate : 105 BPM Atrial Rate : 105 BPM P-R Int : 146 ms QRS Dur : 086 ms QT Int : 312 ms P-R-T Axes : 048 018 039 degrees QTc Int : 412 ms Sinus tachycardia Otherwise normal ECG When compared with ECG of 20-FEB-2020 18:47, No significant change was found Referred By: Generic ED Physician Electronically Signed By:JEYSON DEL VALLE
--- NOTE | 2021-05-21 16:52 | ED.ALCOHOL ---
HPI - Alcohol General Chief Complaint: ETOH/Substance Use Stated Complaint: Alcohol withdrawal/chest pains Time Seen by Provider: 05/21/21 16:13 Source: patient and old records reviewed Mode of arrival: ambulatory Limitations: no limitations History of Present Illness HPI narrative: on a binge from Monday to Monday now worried about his heart and liver also that he could have been exposed to COVID the patient is very anxious complaint: alcohol withdrawal Last drink: Hours (ago) Chronic alcohol use: Yes Previous visits for alcohol intoxication: Yes Recent trauma: No Associated symptoms: nausea and other (palpitations, weakness, anxiety, chest pressure, worried he was exposed to COVID) Treatments prior to arrival: other (drank a little bit of ETOH, xanax 1mg) Related Data Home Medications Medication Instructions Recorded Confirmed albuterol sulfate 90 mcg/actuation 2 puff PO Q6H PRN 03/11/20 03/11/20 aerosol inhaler Previous Rx's Medication Instructions Recorded lisinopril 20 mg tablet 20 mg PO DAILY #90 tab 12/25/19 hydrochlorothiazide 25 mg tablet 25 mg PO DAILY #90 tab 02/24/20 alprazolam 1 mg tablet 1 mg PO TID PRN #90 tab 08/27/20 omeprazole 20 mg capsule,delayed 20 mg PO DAILY 90 Days #90 cap 04/26/21 release naltrexone 50 mg tablet 50 mg PO DAILY #30 tab 05/07/21 folic acid 1 mg tablet 1 mg PO DAILY #30 tab 05/20/21 thiamine HCl (vitamin B1) 100 mg 100 mg PO DAILY #30 tab 05/20/21 tablet Allergies Allergy/AdvReac Type Severity Reaction Status Date / Time No Known Allergies Allergy Verified 05/20/21 15:42 [No Known Allergies*] Review of Systems Review of Systems: Constitutional : No Weight loss, No Fever, No Chills ENT/Mouth : pos sore throat, No Rhinorrhea Eyes: No Swelling, No Redness Cardiovascular : No Chest Pain, No SOB, No Edema, pos palpitations Respiratory : No Cough, No Sputum, No Wheezing Gastrointestinal : Positive Nausea, no Vomiting, no Diarrhea, no abdominal Pain, No Hematochezia, No Melena Genitourinary : No Dysuria, No Urinary Frequency, No Hematuria, No Urgency Musculoskeletal : No joint pain, No Myalgias, No Joint Swelling Skin : No Skin Lesions, No rash Neuro : No Weakness, No Numbness, No Dizziness, No Headache Psych : pos Anxiety/Panic, No Depression Heme/Lymph: No Bruising, No Lymphadenopathy Endocrine : No Polyuria, No Polydipsia All other systems reviewed and are negative. [facility] Past Medical History Attestation statement: The following information was validated with the patient. Medical History Alcohol dependence Alcoholic hepatitis Anxiety Depression Hypertension Surgical History No history of previous surgery Family History Family History Mother No problems noted. Father No problems noted. Social History Social History (Updated 05/21/21 @ 17:00 by Lianna Ramírez DO) Alcohol intake: current Alcohol intake frequency: 3 or more drinks per day Alcohol type: hard liquor Patient Tobacco Use Status: Never used Tobacco Substance Use Type: Marijuana Advance Directives: No Advance Directives Information Provided: No Physical Exam ED Vital Signs: Vital Signs - 24 hr 05/21/21 14:40 05/21/21 18:10 Temperature 98.2 F Pulse Rate 132 H 102 H Respiratory Rate 18 18 Blood Pressure 153/97 H 121/74 Pulse Oximetry 96 97 BMI result Body Mass Index 39.0 Appearance: Alert. Oriented X3. No acute distress. Extremely anxious Eyes: Pupils equal, round and reactive to light. ENT: Pharynx normal. Neck: Normal inspection. Neck supple. CVS: tachycardia heart rate and rhythm. Pulses normal. Respiratory: No respiratory distress. Breath sounds normal. Abdomen: Soft and non-tender. Skin: Skin warm and dry. Normal skin color. Normal skin turgor. Extremities: No lower extremity edema. No calf ttp Neuro: Oriented X 3. No motor deficit. No sensory deficit. Course Course Course Narrative: refuses detox or care team input HR and BP improved, symptoms improved, LFTs lower than baseline, COVID negative - feels much better stable for DC MDM - Alcohol MDM Narrative Medical decision making narrative: 30 yo male with hx sig for ETOH abuse on naltrexone, HTN on lisinopril, anxiety on xanax comes after drinking from Monday to Monday he is now anxious due to concerns for his liver and feeling his heart racing. At this time labs, IVF, IV ativan for anxiety. He refuses any assistance. Unsure if this is ETOH withdrawal vs anxiety could be combination. Dispo per results and improvement Lab Data Result diagrams: 05/21/21 17:16 05/21/21 17:16 Labs: Lab Results 05/21/21 05/21/21 05/21/21 Range/Units 17:16 17:16 17:16 WBC 11.3 H (4.8-10.8) X10*3/uL RBC 5.48 (4.60-5.80) X10*6/uL Hgb 17.3 (14.0-18.0) g/dl Hct 51.6 (42.0-52.0) % MCV 94.2 (80.0-98.0) fL MCH 31.6 (27.0-33.0) pg MCHC 33.5 (31.0-36.0) g/dl RDW 12.5 (11.0-16.0) % Plt Count 368 D (160-400) X10*3/uL MPV 9.2 L (9.4-12.4) fL Immature Gran % (Auto) 0.4 (0.0-0.4) % Neut % (Auto) 79.7 H (45-73) % Lymph % (Auto) 12.9 L (20-40) % [place] % (Auto) 6.2 (2-11) % Eos % (Auto) 0.4 (0-4) % Baso % (Auto) 0.4 (0-2) % Lymph # (Auto) 1.5 (1.2-4.9) X10*3/uL [place] # (Auto) 0.7 (0.1-1.2) X10*3/uL Eos # (Auto) 0.1 (0.0-0.4) X10*3/uL Baso # (Auto) 0.1 (0.0-0.2) X10*3/uL Abs Immat Gran (auto) 0.05 H (0.00-0.03) X10*3/uL Absolute Neuts (auto) 9.0 H (2.0-8.3) x10*3/uL Absolute Nucleated RBC 0.000 (0.0-0.012) X10*3/uL Nucleated RBC % (auto) 0.0 (0.0-0.2) /100WBC Sodium 134 L (135-145) mmol/L Potassium 4.2 (3.3-5.1) mmol/L Chloride 100 (96-108) mmol/L Carbon Dioxide 22 (22-29) mmol/L Anion Gap 16 (12-20) BUN 11 (9-16) mg/dL Creatinine 0.69 (0.5-1.4) mg/dL Estim Creat Clear Calc 216.3 Estimated GFR > 60 Random Glucose 104 (60-115) mg/dL Calcium 10.0 (8.4-10.2) mg/dL Magnesium (1.6-2.6) mg/dL Total Bilirubin (0.0-1.0) mg/dL Direct Bilirubin (0.0-0.5) mg/dL AST (5-37) U/L ALT (0-40) U/L Alkaline Phosphatase (39-117) U/L Troponin I High Sens (<3.5-35.0) ng/L Total Protein (6.5-8.0) g/dL Albumin (3.5-5.0) g/dL Ethyl Alcohol mg/dL COVID-19 (DUSTIN) Negative (Negative) COVID-19 Clin Com See Note 05/21/21 05/21/21 05/21/21 Range/Units 17:16 17:16 17:16 WBC (4.8-10.8) X10*3/uL RBC (4.60-5.80) X10*6/uL Hgb (14.0-18.0) g/dl Hct (42.0-52.0) % MCV (80.0-98.0) fL MCH (27.0-33.0) pg MCHC (31.0-36.0) g/dl RDW (11.0-16.0) % Plt Count (160-400) X10*3/uL MPV (9.4-12.4) fL Immature Gran % (Auto) (0.0-0.4) % Neut % (Auto) (45-73) % Lymph % (Auto) (20-40) % [place] % (Auto) (2-11) % Eos % (Auto) (0-4) % Baso % (Auto) (0-2) % Lymph # (Auto) (1.2-4.9) X10*3/uL [place] # (Auto) (0.1-1.2) X10*3/uL Eos # (Auto) (0.0-0.4) X10*3/uL Baso # (Auto) (0.0-0.2) X10*3/uL Abs Immat Gran (auto) (0.00-0.03) X10*3/uL Absolute Neuts (auto) (2.0-8.3) x10*3/uL Absolute Nucleated RBC (0.0-0.012) X10*3/uL Nucleated RBC % (auto) (0.0-0.2) /100WBC Sodium (135-145) mmol/L Potassium (3.3-5.1) mmol/L Chloride (96-108) mmol/L Carbon Dioxide (22-29) mmol/L Anion Gap (12-20) BUN (9-16) mg/dL Creatinine (0.5-1.4) mg/dL Estim Creat Clear Calc Estimated GFR Random Glucose (60-115) mg/dL Calcium (8.4-10.2) mg/dL Magnesium 2.2 (1.6-2.6) mg/dL Total Bilirubin 0.7 (0.0-1.0) mg/dL Direct Bilirubin 0.2 (0.0-0.5) mg/dL AST 53 H (5-37) U/L ALT 110 H (0-40) U/L Alkaline Phosphatase 71 (39-117) U/L Troponin I High Sens < 3.5 (<3.5-35.0) ng/L Total Protein 7.5 (6.5-8.0) g/dL Albumin 4.6 (3.5-5.0) g/dL Ethyl Alcohol < 10 mg/dL COVID-19 (DUSTIN) (Negative) COVID-19 Clin Com ECG Data ECG #1: Attestation: I personally reviewed and interpreted this ECG as follows: ECG interpretation date: 05/21/21 ECG interpretation time: 17:08 Interpretation: Rate: 105 Rhythm: sinus tachycardia [place]: normal Normal P waves. Normal CHET. Normal QRS complex. ST T wave : normal no WILLIE qTC: normal prior studies: no acute ischemia The study has been interpreted contemporaneously by me. Discharge Plan Discharge Clinical Impression: Anxiety, Alcohol abuse Patient Disposition: Home, Self-Care Instructions: Abuse of Alcohol (ED), Anxiety (ED) Additional Instructions: return to ED for any worsening symptoms or concerns COVID negative please follow up with your outpatient providers Prescriptions: No Action lisinopril 20 mg tablet 20 mg PO DAILY Qty: 90 8RF hydrochlorothiazide 25 mg tablet 25 mg PO DAILY Qty: 90 8RF alprazolam 1 mg tablet 1 mg PO TID PRN (Reason: anxiety) Qty: 90 5RF omeprazole 20 mg capsule,delayed release(DR/EC) 20 mg PO DAILY 90 Days Qty: 90 8RF naltrexone 50 mg tablet 50 mg PO DAILY Qty: 30 2RF albuterol sulfate 90 mcg/actuation HFA aerosol inhaler 2 puff PO Q6H PRN0RF folic acid 1 mg tablet 1 mg PO DAILY Qty: 30 1RF thiamine HCl (vitamin B1) 100 mg tablet 100 mg PO DAILY Qty: 30 1RF
--- NOTE | 2021-05-21 17:31 | PC.NURSE ---
very slight tremor. describes anxiety w/o SI and HI. last drink was around noon today. was trying to keep the DTs at bay. skin pwd. pupils large, reactive 5-6mm taya. calm. axox3.
[2021-05-21 17:32] LABS: MANUAL DIFF FLAG NO
[2021-05-21 17:45] LABS: Basophils Absolute Auto 0.1 X10*3/uL (0.0-0.2); Basophils Percent Auto 0.4 % (0-2); Eosinophils Absolute Auto 0.1 X10*3/uL (0.0-0.4); Eosinophils Percent Auto 0.4 % (0-4); Hematocrit 51.6 % (42.0-52.0); Hemoglobin 17.3 g/dl (14.0-18.0); Imm Gran Abs Auto 0.05 X10*3/uL (0.00-0.03); Imm Gran Pct Auto 0.4 % (0.0-0.4); Lymphocytes Absolute Auto 1.5 X10*3/uL (1.2-4.9); Lymphocytes Percent Auto 12.9 % (20-40); Mean Corpuscular HGB Conc 33.5 g/dl (31.0-36.0); Mean Corpuscular Hemoglobin 31.6 pg (27.0-33.0); Mean Corpuscular Volume 94.2 fL (80.0-98.0); Mean Platelet Volume 9.2 fL (9.4-12.4); Monocytes Absolute Auto 0.7 X10*3/uL (0.1-1.2); Monocytes Percent Auto 6.2 % (2-11); Neutrophils Percent Auto 79.7 % (45-73); Platelet Count 368 X10*3/uL (160-400); Red Blood Count 5.48 X10*6/uL (4.60-5.80); Red Cell Distribution Width 12.5 % (11.0-16.0); White Blood Count 11.3 X10*3/uL (4.8-10.8)
[2021-05-21] MEDS: ondansetron HCL 4 MG/2 ML VIAL IVPUSH (17:48)
[2021-05-21] MEDS: LORazepam 2 MG/ML VIAL IVPUSH (17:49)
[2021-05-21 17:53] LABS: Anion Gap 16 (12-20); Blood Urea Nitrogen 11 mg/dL (9-16); Carbon Dioxide 22 mmol/L (22-29); Chloride 100 mmol/L (96-108); Creatinine Clr Calc Pharmacy 216.3; Estimated Glomerular Filt Rate > 60; Glucose Random 104 mg/dL (60-115); Potassium 4.2 mmol/L (3.3-5.1); Sodium 134 mmol/L (135-145)
[2021-05-21] MEDS: 0.9 % Sodium Chloride 1,000 ML 999 ML IV (17:53)
[2021-05-21] MEDS: Thiamine HCL 200 MG in 0.9 % Sodium Chloride 100 ML 204 MG IV (17:53)
[2021-05-21 17:54] LABS: Ethanol < 10 mg/dL
[2021-05-21 17:58] LABS: Troponin-I High Sensitivity < 3.5 ng/L (<3.5-35.0)
[2021-05-21 18:04] LABS: Alanine Aminotransferase 110 U/L (0-40); Albumin Level 4.6 g/dL (3.5-5.0); Alkaline Phosphatase 71 U/L (39-117); Aspartate Amino Transferase 53 U/L (5-37); Bilirubin Direct 0.2 mg/dL (0.0-0.5); Bilirubin Total 0.7 mg/dL (0.0-1.0); Magnesium 2.2 mg/dL (1.6-2.6); Total Protein 7.5 g/dL (6.5-8.0)
[2021-05-21 18:10] VITALS: BP 121/74; PULSE 102; RESP 18; O2SAT 97
--- NOTE | 2021-05-21 18:11 | PC.NURSE ---
last etoh was noon today
[2021-05-21 18:18] LABS: COVID-19 Test Negative (Negative)
--- NOTE | 2021-05-21 18:50 | MHC.RECOVSUP ---
? Reason for consult Recovery Support o Current location: ED04 o Identified substance use concern: Alcohol - Withdrawal <del>-</del> <del>Seeking</del> <del>ATS</del> <del>(detox)</del> - Support ? Intervention: <del>o</del> <del>ATS</del> <del>bed</del> <del>search</del> <del>started/completed/in</del> <del>process</del> <del>o</del> <del>MAT</del> <del>started</del> <del>or</del> <del>to</del> <del>be</del> <del>started</del> o Community resources provided o Harm reduction discussion ? Plan: o <del>Referral</del> <del>to</del> <del>CCC</del> <del>o</del> <del>Bed</del> <del>search</del> <del>in</del> <del>progress</del> <del>to</del> <del>o</del> <del>Follow</del> <del>up</del> <del>tomorrow</del> <del>o</del> <del>Patient</del> <del>awaiting</del> <del>crisis</del> <del>evaluation</del> o Patient to follow up with [facility] after discharge ? Additional information: Met with Patient and we talked about recovery, and Harm reduction.. We talk about MAT and [facility].. Patient stated that he not sure right now if he wants detox.. i explain to patient he can always go to [facility] when he decides.. Resources was given to patient
== END 2021-05-21 19:11 | disposition home or self-care (01) ==
PROVIDERS: Emergency Provider Emergency Medicine; PCP Internal Medicine
DX: F41.9 Anxiety disorder, unspecified (principal); F10.10 Alcohol abuse, uncomplicated; Y90.0 Blood alcohol level of less than 20 mg/100 ml; R00.0 Tachycardia, unspecified; Z20.822 Contact with and (suspected) exposure to COVID-19; Z79.899 Other long term (current) drug therapy
CPT/HCPCS: 36415; 80048; 80076; 82077; 83735; 84484; 85025; 87635; 93005; 96361; 96365; 96375; 99284; J2060; J2405; J3411

== ENCOUNTER → 2021-06-03 15:34 | Outpatient (BNVA) | payer OTHER, SELFPAY | PROVIDERS: PCP Internal Medicine; Visit Provider Nurse Practitioner Psychiatric/Mental Health | DX: Z51.81 Encounter for therapeutic drug level monitoring (principal); Z79.899 Other long term (current) drug therapy | CPT/HCPCS: 80305; 99211 ==

== ENCOUNTER 2021-06-22 20:26 | Emergency (ER) | payer OTHER, SELFPAY ==
--- NOTE | ~2021-06-22 | XR_ITS ---
EXAMINATION: CHEST 2 VIEWS CLINICAL INFORMATION: palpitations . COMPARISON: 02/20/2020. TECHNIQUE: PA and lateral views of the chest obtained. FINDINGS: The lungs are mildly hypoexpanded. No focal infiltrate, effusion, edema, or pneumothorax. Cardiac and mediastinal silhouettes are within normal limits for technique. No acute bony abnormality seen XR/XR chest 2V IMPRESSION: No evidence of acute disease
[2021-06-22 20:45] VITALS: BP 145/85; PULSE 138; RESP 24; TEMP 36.6; O2SAT 96; BMI 39.0
[2021-06-22 21:18] LABS: MANUAL DIFF FLAG NO
[2021-06-22 21:20] LABS: Basophils Absolute Auto 0.1 X10*3/uL (0.0-0.2); Eosinophils Percent Auto 0.2 % (0-4); Hematocrit 49.6 % (42.0-52.0); Imm Gran Abs Auto 0.05 X10*3/uL (0.00-0.03); Imm Gran Pct Auto 0.5 % (0.0-0.4); Lymphocytes Absolute Auto 1.7 X10*3/uL (1.2-4.9); Lymphocytes Percent Auto 18.9 % (20-40); Mean Corpuscular HGB Conc 34.3 g/dl (31.0-36.0); Mean Corpuscular Hemoglobin 31.6 pg (27.0-33.0); Mean Corpuscular Volume 92.2 fL (80.0-98.0); Mean Platelet Volume 8.6 fL (9.4-12.4); Monocytes Percent Auto 11.4 % (2-11); Neutrophils Absolute Auto 6.2 x10*3/uL (2.0-8.3); Platelet Count 380 X10*3/uL (160-400); Red Blood Count 5.38 X10*6/uL (4.60-5.80); Red Cell Distribution Width 13.3 % (11.0-16.0); White Blood Count 9.1 X10*3/uL (4.8-10.8)
[2021-06-22 21:27] LABS: D Dimer High Sensitivity 162 NG/ML
[2021-06-22 21:43] LABS: Troponin-I High Sensitivity < 3.5 ng/L (<3.5-35.0)
[2021-06-22 21:47] LABS: Alanine Aminotransferase 130 U/L (0-40); Albumin Level 4.6 g/dL (3.5-5.0); Alkaline Phosphatase 60 U/L (39-117); Anion Gap 20 (12-20); Aspartate Amino Transferase 68 U/L (5-37); Bilirubin Total 1.7 mg/dL (0.0-1.0); Blood Urea Nitrogen 13 mg/dL (9-16); Carbon Dioxide 24 mmol/L (22-29); Chloride 95 mmol/L (96-108); Creatinine Clr Calc Pharmacy 193.9; Estimated Glomerular Filt Rate > 60; Glucose Random 93 mg/dL (60-115); Sodium 135 mmol/L (135-145); Total Protein 7.5 g/dL (6.5-8.0)
[2021-06-22 22:16] VITALS: BP 120/83; PULSE 117; RESP 15; TEMP 36.9; O2SAT 94
--- NOTE | 2021-06-22 23:03 | ED_ITS ---
HPI - General Adult General Chief complaint: Arrhythmia/Palpitations Stated complaint: sob rapid heart rate Time Seen by Provider: 06/22/21 21:37 Source: patient Mode of arrival: ambulatory Limitations: no limitations History of Present Illness HPI narrative: 30-year-old male presents to ED for heart palpitations and tremors. Patient history of alcohol abuse. Patient states he went on a drinking binge the past 4 days and last drink was around 21:00 last night. Patient states last night he became ansty and was trying to sleep so he two buspar at 12:00am and than 1 ativan po ( 06/22/2021). Patient denies any chest pain. Patient denies any other drug use. Patient states history of alcohol abuse withdrawal in the past. Related Data Home Medications Medication Instructions Recorded Confirmed albuterol sulfate 90 mcg/actuation 2 puff PO Q6H PRN 03/11/20 03/11/20 aerosol inhaler Previous Rx's Medication Instructions Recorded lisinopril 20 mg tablet 20 mg PO DAILY #90 tab 12/25/19 hydrochlorothiazide 25 mg tablet 25 mg PO DAILY #90 tab 02/24/20 omeprazole 20 mg capsule,delayed 20 mg PO DAILY 90 Days #90 cap 04/26/21 release naltrexone 50 mg tablet 50 mg PO DAILY #30 tab 05/07/21 folic acid 1 mg tablet 1 mg PO DAILY #30 tab 05/20/21 thiamine HCl (vitamin B1) 100 mg 100 mg PO DAILY #30 tab 05/20/21 tablet alprazolam 1 mg tablet 1 mg PO TID PRN #90 tab 06/17/21 Allergies Allergy/AdvReac Type Severity Reaction Status Date / Time No Known Allergies Allergy Verified 06/03/21 15:37 [No Known Allergies*] Review of Systems Review of Systems: Palpitation and tremors. Yes all other systems are reviewed and are negative PMF Past Medical History Medical History Alcohol dependence Alcoholic hepatitis Anxiety Depression Hypertension Surgical History No history of previous surgery Family History Family History Mother No problems noted. Father No problems noted. Social History Social History (Updated 05/21/21 @ 17:00 by MICHELE Lala Alcohol intake: current Alcohol intake frequency: 3 or more drinks per day Alcohol type: hard liquor Patient Tobacco Use Status: Never used Tobacco Substance Use Type: Marijuana Advance Directives: No Advance Directives Information Provided: No Physical Exam ED Vital Signs: Vital Signs - 24 hr 06/22/21 20:45 06/22/21 22:16 Temperature 98 F 98.4 F Pulse Rate 138 H 117 H Respiratory Rate 24 H 15 Blood Pressure 145/85 H 120/83 Pulse Oximetry 96 94 BMI result Body Mass Index 39.0 Const General: cooperative, healthy appearing, comfortable, no acute distress, well developed, alert, awake and Physically active Orientation/consciousness: patient oriented x3 HENMT Head: Yes normal to inspection, Yes No palpable skull fracture present, Yes normocephalic, Yes atraumatic and No abrasion Eyes General: appearance normal, both eyes and all related structures Neck Neck: Yes normal visual inspection, Yes full ROM, Yes no lymphadenopathy, Yes no meningeal signs, Yes trachea midline, Yes supple, No anterior neck swelling and No tender Chest Chest palpation & inspection: normal inspection of the chest and normal palpation of entire chest wall Resp Effort & Inspection: normal respiratory effort and able to speak in complete sentences Auscultation: clear to auscultation bilaterally Cardio Jugular venous distension: no JVD Heart sounds: S1 normal heart sound present and S2 normal heart sound present GI Inspection: Yes normal to inspection and No abdominal wall ecchymosis Palpation (GI): Soft to palpation, not firm, nontender, no guarding and not rigid General: No CVA tenderness and Yes no CVA tenderness Back/Spine/Pelvis Back: no CVA tenderness, No CVA tenderness and No back tenderness Skin General skin exam: no rashes or lesions noted and elasticity normal Neuro General: patient oriented x3, gait normal, no meningeal signs and CN's II-XI intact bilaterally Cranial nerves: Yes CN's II-XII intact bilaterally Extrem Other: Positive for tremors of upper extremities. General: Yes normal to inspection and Yes full ROM Psych Appearance: grossly normal, well kempt and not disheveled Course Course Course Narrative: History physical exam indicates alcohol withdrawal. EKG shows sinus tach. Troponin labs ordered. Will order D-dimer and thyroid level. Ativan 2 mg and IV fluids ordered. Reevaluation(s) Reevaluation #1: On monitor heart rate is 103. Patient states he feels better. Tremors resolved. Wait for 2nd troponin. Time: 01:20 Reevaluation #2: Second troponin negative. Patient does not want detox. He already has follow with Hansa Avelar who is in charge of substance abuse program add with [facility] this . Patient would like to be discharged. Time: 02:01 Medical Decision Making MDM Narrative Medical decision making narrative: Alcohol withdrawal Lab Data Result diagrams: 06/22/21 21:13 06/22/21 21:14 Labs: Lab Results 06/22/21 06/22/21 06/22/21 Range/Units 21:13 21:13 21:14 WBC 9.1 (4.8-10.8) X10*3/uL RBC 5.38 (4.60-5.80) X10*6/uL Hgb 17.0 (14.0-18.0) g/dl Hct 49.6 (42.0-52.0) % MCV 92.2 (80.0-98.0) fL MCH 31.6 (27.0-33.0) pg MCHC 34.3 (31.0-36.0) g/dl RDW 13.3 (11.0-16.0) % Plt Count 380 (160-400) X10*3/uL MPV 8.6 L (9.4-12.4) fL Immature Gran % (Auto) 0.5 H (0.0-0.4) % Neut % (Auto) 68.0 (45-73) % Lymph % (Auto) 18.9 L (20-40) % [place] % (Auto) 11.4 H (2-11) % Eos % (Auto) 0.2 (0-4) % Baso % (Auto) 1.0 (0-2) % Lymph # (Auto) 1.7 (1.2-4.9) X10*3/uL [place] # (Auto) 1.0 (0.1-1.2) X10*3/uL Eos # (Auto) 0.0 (0.0-0.4) X10*3/uL Baso # (Auto) 0.1 (0.0-0.2) X10*3/uL Abs Immat Gran (auto) 0.05 H (0.00-0.03) X10*3/uL Absolute Neuts (auto) 6.2 (2.0-8.3) x10*3/uL Absolute Nucleated RBC 0.000 (0.0-0.012) X10*3/uL Nucleated RBC % (auto) 0.0 (0.0-0.2) /100WBC PT INR APTT D-Dimer High Sensitivty 162 NG/ML Sodium 135 (135-145) mmol/L Potassium 4.0 (3.3-5.1) mmol/L Chloride 95 L (96-108) mmol/L Carbon Dioxide 24 (22-29) mmol/L Anion Gap 20 (12-20) BUN 13 (9-16) mg/dL Creatinine 0.77 (0.5-1.4) mg/dL Estim Creat Clear Calc 193.9 Estimated GFR > 60 Random Glucose 93 (60-115) mg/dL Calcium 10.0 (8.4-10.2) mg/dL Total Bilirubin 1.7 H (0.0-1.0) mg/dL AST 68 H (5-37) U/L ALT 130 H (0-40) U/L Alkaline Phosphatase 60 (39-117) U/L Troponin I High Sens (<3.5-35.0) ng/L Total Protein 7.5 (6.5-8.0) g/dL Albumin 4.6 (3.5-5.0) g/dL TSH 6.00 H (0.32-4.0) uIU/mL Free T4 1.19 (0.71-1.85) ng/dL Ethyl Alcohol mg/dL COVID-19 (DUSTIN) (Negative) COVID-19 Clin Com Influenza Type A ([place]) (Negative) Influenza Type B ([place]) (Negative) Influenza A & B Note 06/22/21 06/22/21 06/22/21 Range/Units 21:14 22:38 22:38 WBC (4.8-10.8) X10*3/uL RBC (4.60-5.80) X10*6/uL Hgb (14.0-18.0) g/dl Hct (42.0-52.0) % MCV (80.0-98.0) fL MCH (27.0-33.0) pg MCHC (31.0-36.0) g/dl RDW (11.0-16.0) % Plt Count (160-400) X10*3/uL MPV (9.4-12.4) fL Immature Gran % (Auto) (0.0-0.4) % Neut % (Auto) (45-73) % Lymph % (Auto) (20-40) % [place] % (Auto) (2-11) % Eos % (Auto) (0-4) % Baso % (Auto) (0-2) % Lymph # (Auto) (1.2-4.9) X10*3/uL [place] # (Auto) (0.1-1.2) X10*3/uL Eos # (Auto) (0.0-0.4) X10*3/uL Baso # (Auto) (0.0-0.2) X10*3/uL Abs Immat Gran (auto) (0.00-0.03) X10*3/uL Absolute Neuts (auto) (2.0-8.3) x10*3/uL Absolute Nucleated RBC (0.0-0.012) X10*3/uL Nucleated RBC % (auto) (0.0-0.2) /100WBC PT INR APTT D-Dimer High Sensitivty NG/ML Sodium (135-145) mmol/L Potassium (3.3-5.1) mmol/L Chloride (96-108) mmol/L Carbon Dioxide (22-29) mmol/L Anion Gap (12-20) BUN (9-16) mg/dL Creatinine (0.5-1.4) mg/dL Estim Creat Clear Calc Estimated GFR Random Glucose (60-115) mg/dL Calcium (8.4-10.2) mg/dL Total Bilirubin (0.0-1.0) mg/dL AST (5-37) U/L ALT (0-40) U/L Alkaline Phosphatase (39-117) U/L Troponin I High Sens < 3.5 (<3.5-35.0) ng/L Total Protein (6.5-8.0) g/dL Albumin (3.5-5.0) g/dL TSH (0.32-4.0) uIU/mL Free T4 (0.71-1.85) ng/dL Ethyl Alcohol mg/dL COVID-19 (DUSTIN) Negative (Negative) COVID-19 Clin Com See Note Influenza Type A ([place]) Negative (Negative) Influenza Type B ([place]) Negative (Negative) Influenza A & B Note See Note 06/22/21 06/22/21 06/22/21 Range/Units 22:45 22:45 23:04 WBC (4.8-10.8) X10*3/uL RBC (4.60-5.80) X10*6/uL Hgb (14.0-18.0) g/dl Hct (42.0-52.0) % MCV (80.0-98.0) fL MCH (27.0-33.0) pg MCHC (31.0-36.0) g/dl RDW (11.0-16.0) % Plt Count (160-400) X10*3/uL MPV (9.4-12.4) fL Immature Gran % (Auto) (0.0-0.4) % Neut % (Auto) (45-73) % Lymph % (Auto) (20-40) % [place] % (Auto) (2-11) % Eos % (Auto) (0-4) % Baso % (Auto) (0-2) % Lymph # (Auto) (1.2-4.9) X10*3/uL [place] # (Auto) (0.1-1.2) X10*3/uL Eos # (Auto) (0.0-0.4) X10*3/uL Baso # (Auto) (0.0-0.2) X10*3/uL Abs Immat Gran (auto) (0.00-0.03) X10*3/uL Absolute Neuts (auto) (2.0-8.3) x10*3/uL Absolute Nucleated RBC (0.0-0.012) X10*3/uL Nucleated RBC % (auto) (0.0-0.2) /100WBC PT Cancelled 11.8 INR Cancelled 1.0 APTT Cancelled 28.4 D-Dimer High Sensitivty NG/ML Sodium (135-145) mmol/L Potassium (3.3-5.1) mmol/L Chloride (96-108) mmol/L Carbon Dioxide (22-29) mmol/L Anion Gap (12-20) BUN (9-16) mg/dL Creatinine (0.5-1.4) mg/dL Estim Creat Clear Calc Estimated GFR Random Glucose (60-115) mg/dL Calcium (8.4-10.2) mg/dL Total Bilirubin (0.0-1.0) mg/dL AST (5-37) U/L ALT (0-40) U/L Alkaline Phosphatase (39-117) U/L Troponin I High Sens (<3.5-35.0) ng/L Total Protein (6.5-8.0) g/dL Albumin (3.5-5.0) g/dL TSH (0.32-4.0) uIU/mL Free T4 (0.71-1.85) ng/dL Ethyl Alcohol < 10 mg/dL COVID-19 (DUSTIN) (Negative) COVID-19 Clin Com Influenza Type A ([place]) (Negative) Influenza Type B ([place]) (Negative) Influenza A & B Note 06/22/21 Range/Units 23:04 WBC (4.8-10.8) X10*3/uL RBC (4.60-5.80) X10*6/uL Hgb (14.0-18.0) g/dl Hct (42.0-52.0) % MCV (80.0-98.0) fL MCH (27.0-33.0) pg MCHC (31.0-36.0) g/dl RDW (11.0-16.0) % Plt Count (160-400) X10*3/uL MPV (9.4-12.4) fL Immature Gran % (Auto) (0.0-0.4) % Neut % (Auto) (45-73) % Lymph % (Auto) (20-40) % [place] % (Auto) (2-11) % Eos % (Auto) (0-4) % Baso % (Auto) (0-2) % Lymph # (Auto) (1.2-4.9) X10*3/uL [place] # (Auto) (0.1-1.2) X10*3/uL Eos # (Auto) (0.0-0.4) X10*3/uL Baso # (Auto) (0.0-0.2) X10*3/uL Abs Immat Gran (auto) (0.00-0.03) X10*3/uL Absolute Neuts (auto) (2.0-8.3) x10*3/uL Absolute Nucleated RBC (0.0-0.012) X10*3/uL Nucleated RBC % (auto) (0.0-0.2) /100WBC PT INR APTT D-Dimer High Sensitivty NG/ML Sodium (135-145) mmol/L Potassium (3.3-5.1) mmol/L Chloride (96-108) mmol/L Carbon Dioxide (22-29) mmol/L Anion Gap (12-20) BUN (9-16) mg/dL Creatinine (0.5-1.4) mg/dL Estim Creat Clear Calc Estimated GFR Random Glucose (60-115) mg/dL Calcium (8.4-10.2) mg/dL Total Bilirubin (0.0-1.0) mg/dL AST (5-37) U/L ALT (0-40) U/L Alkaline Phosphatase (39-117) U/L Troponin I High Sens (<3.5-35.0) ng/L Total Protein (6.5-8.0) g/dL Albumin (3.5-5.0) g/dL TSH (0.32-4.0) uIU/mL Free T4 (0.71-1.85) ng/dL Ethyl Alcohol < 10 mg/dL COVID-19 ([place]) (Negative) COVID-19 Clin Com Influenza Type A ([place]) (Negative) Influenza Type B ([place]) (Negative) Influenza A & B Note Discharge Plan Discharge Clinical Impression: Alcohol withdrawal Patient Disposition: Home, Self-Care Additional Instructions: Please follow-up with primary care provider. Please keep the appointment with [facility] for detox. Return to ED for any chest pain, shortness of breath, weakness, dizziness fever, chills, chest pain, seizure, abdominal pain, or any other concerning symptoms. Your TSH level slightly elevated ( 6.00)m but Your Free T4 was normal ( 1.19). Please follow-up with primary care provider in regards to you-re thyroid levels Prescriptions: No Action lisinopril 20 mg tablet 20 mg PO DAILY Qty: 90 8RF hydrochlorothiazide 25 mg tablet 25 mg PO DAILY Qty: 90 8RF omeprazole 20 mg capsule,delayed release(DR/EC) 20 mg PO DAILY 90 Days Qty: 90 8RF naltrexone 50 mg tablet 50 mg PO DAILY Qty: 30 2RF alprazolam 1 mg tablet 1 mg PO TID PRN (Reason: anxiety) Qty: 90 5RF albuterol sulfate 90 mcg/actuation HFA aerosol inhaler 2 puff PO Q6H PRN0RF folic acid 1 mg tablet 1 mg PO DAILY Qty: 30 1RF thiamine HCl (vitamin B1) 100 mg tablet 100 mg PO DAILY Qty: 30 1RF Stand Alone Forms: Work/School Release Print Language: Haitian
[2021-06-22] MEDS: 0.9 % Sodium Chloride 1,000 ML 999 ML IV (23:08)
[2021-06-22 23:11] LABS: Ethanol < 10 mg/dL
[2021-06-22] MEDS: LORazepam 2 MG/ML VIAL IVPUSH (23:17)
[2021-06-22 23:20] LABS: COVID-19 Test Negative (Negative); IDNOW Serial# 08D9AD1C; Influenza A Negative (Negative); Influenza B2 Negative (Negative)
[2021-06-22 23:29] LABS: Prothrombin Time 11.8 SEC (9.9-13.0)
[2021-06-22 23:31] LABS: Partial Thromboplastin Time 28.4 SEC (24.1-38.0)
[2021-06-22 23:37] LABS: Ethanol < 10 mg/dL
[2021-06-22 23:55] LABS: Free T4 (Free Thyroxine) 1.19 ng/dL (0.71-1.85)
[2021-06-23] MEDS: 0.9 % Sodium Chloride 1,000 ML 999 ML IV (00:09)
[2021-06-23 01:53] LABS: Troponin-I High Sensitivity < 3.5 ng/L (<3.5-35.0)
[2021-06-23 02:19] VITALS: BP 140/85; PULSE 103; RESP 18; TEMP 36.9; O2SAT 98
== END 2021-06-23 02:20 | disposition home or self-care (01) ==
PROVIDERS: Physician Assistant; Student in an Organized Health Care Education/Training Program; Emergency Provider Emergency Medicine Emergency Medical Services; PCP Internal Medicine
DX: F10.239 Alcohol dependence with withdrawal, unspecified (principal); R06.02 Shortness of breath; R00.2 Palpitations; Y90.0 Blood alcohol level of less than 20 mg/100 ml; Z20.822 Contact with and (suspected) exposure to COVID-19; Z79.899 Other long term (current) drug therapy
CPT/HCPCS: 36415; 71046; 80053; 82077; 84439; 84443; 84484; 85025; 85379; 85610; 85730; 87502; 87635; 96361; 96374; 99285; J2060

== ENCOUNTER 2021-06-30 08:31 | Emergency (ER) | payer OTHER, SELFPAY ==
--- NOTE | 2021-06-30 08:41 | ECG_ITS ---
Test Reason : withdrawl Blood Pressure : / mmHG Vent. Rate : 113 BPM Atrial Rate : 113 BPM P-R Int : 138 ms QRS Dur : 088 ms QT Int : 386 ms P-R-T Axes : 061 014 049 degrees QTc Int : 529 ms Sinus tachycardia Right atrial enlargement Prolonged QT Abnormal ECG When compared with ECG of 21-MAY-2021 16:59, QT has lengthened Referred By: Lianna Ramírez Electronically Signed By:JEYSON DEL VALLE
[2021-06-30 08:46] VITALS: BP 132/90; PULSE 119; RESP 20; TEMP 36.8; O2SAT 95; BMI 39.0
--- NOTE | 2021-06-30 08:49 | ED.ALCOHOL ---
HPI - Alcohol General Chief Complaint: ETOH/Substance Use Stated Complaint: Alcohol withdrawals Time Seen by Provider: 06/30/21 08:41 Source: patient Mode of arrival: ambulatory Limitations: no limitations History of Present Illness MD complaint: alcohol withdrawal Last drink: Days (ago) (2) Chronic alcohol use: Yes Previous visits for alcohol intoxication: Yes Recent trauma: No Associated symptoms: nausea and tremors Treatments prior to arrival: none Related Data Home Medications Medication Instructions Recorded Confirmed albuterol sulfate 90 mcg/actuation 2 puff PO Q6H PRN 03/11/20 03/11/20 aerosol inhaler Previous Rx's Medication Instructions Recorded lisinopril 20 mg tablet 20 mg PO DAILY #90 tab 12/25/19 hydrochlorothiazide 25 mg tablet 25 mg PO DAILY #90 tab 02/24/20 omeprazole 20 mg capsule,delayed 20 mg PO DAILY 90 Days #90 cap 04/26/21 release naltrexone 50 mg tablet 50 mg PO DAILY #30 tab 05/07/21 folic acid 1 mg tablet 1 mg PO DAILY #30 tab 05/20/21 thiamine HCl (vitamin B1) 100 mg 100 mg PO DAILY #30 tab 05/20/21 tablet alprazolam 1 mg tablet 1 mg PO TID PRN #90 tab 06/17/21 lorazepam 1 mg tablet (Ativan) 1 mg PO TID PRN #6 tab 06/30/21 ondansetron 4 mg disintegrating 4 mg PO Q8H PRN #20 tab 06/30/21 tablet Allergies Allergy/AdvReac Type Severity Reaction Status Date / Time No Known Allergies Allergy Verified 06/03/21 15:37 [No Known Allergies*] Review of Systems Review of Systems: Constitutional : No Fever, No Chills ENT/Mouth : No Ear Pain, No Nasal Congestion, No sore throat Eyes: No Eye Pain, No Swelling, No Redness Cardiovascular : No Chest Pain, No SOB Respiratory : No Cough, No Sputum, No Dyspnea Gastrointestinal : pos Nausea, No Vomiting, No Diarrhea, No Hematochezia, No Melena Genitourinary : No Dysuria, No Urinary Frequency, No Hematuria Musculoskeletal : No Myalgias Skin : No Skin Lesions, No rash Neuro : pos Weakness, No Numbness, No Paresthesias, No Dizziness, No Headache Psych : positive Anxiety, positive Depression, no SI/HI Heme/Lymph: No Lymphadenopathy Endocrine : No Polyuria, No Polydipsia All other systems reviewed and are negative [facility] Past Medical History Attestation statement: The following information was validated with the patient. Medical History Alcohol dependence Alcoholic hepatitis Anxiety Depression Hypertension Surgical History No history of previous surgery Family History Family History Mother No problems noted. Father No problems noted. Social History Social History Alcohol intake: current Alcohol intake frequency: former alcohol drinker Alcohol type: hard liquor Patient Tobacco Use Status: Never used Tobacco Use of substances other than those prescribed or required for medical reasons: No Substance Use Type: Marijuana Advance Directives: No Physical Exam ED Vital Signs: Vital Signs - 24 hr 06/30/21 08:46 06/30/21 10:39 Temperature 98.3 F 98.6 F Pulse Rate 119 H 98 Respiratory Rate 20 18 Blood Pressure 132/90 H 115/69 Pulse Oximetry 95 98 BMI result Body Mass Index 39.0 Appearance: Alert. Oriented X3. Anxious mild acute distress. Eyes: Pupils equal, round and reactive to light. ENT: Pharynx normal. Neck: Normal inspection. Neck supple. CVS: tachycardic heart rate and rhythm. Pulses normal. Respiratory: No respiratory distress. Breath sounds normal. Abdomen: Soft and nontender. Skin: Skin warm and dry. Normal skin color. Normal skin turgor. Extremities: No lower extremity edema. No calf ttp Neuro: Oriented X 3. No motor deficit. No sensory deficit. tremulous Course Course Course Narrative: VS improved, tolerating PO feels much better at this mag repleted, offer PO ativan few tabs at home to help until appointment tomorrow MDM - Alcohol MDM Narrative Medical decision making narrative: 30 yo male with hx of here with tremors, nausea, anxiety - feels dehydrated at this time will obtain labs, give magnesium, IV ativan, IVF - has appointment with Hansa Avelar NP tomorrow at 1pm. No SI. Dispo per results and clinical improvement. Lab Data Result diagrams: 06/30/21 09:08 04/27/22 09:09 Labs: Lab Results 06/30/21 06/30/21 06/30/21 Range/Units 09:08 09:08 09:08 WBC 7.2 (4.8-10.8) X10*3/uL RBC 5.43 (4.60-5.80) X10*6/uL Hgb 17.1 (14.0-18.0) g/dl Hct 49.5 (42.0-52.0) % MCV 91.2 (80.0-98.0) fL MCH 31.5 (27.0-33.0) pg MCHC 34.5 (31.0-36.0) g/dl RDW 13.5 (11.0-16.0) % Plt Count 364 (160-400) X10*3/uL MPV 8.7 L (9.4-12.4) fL Immature Gran % (Auto) 0.6 H (0.0-0.4) % Neut % (Auto) 60.5 (45-73) % Lymph % (Auto) 21.9 (20-40) % [place] % (Auto) 15.8 H (2-11) % Eos % (Auto) 0.1 (0-4) % Baso % (Auto) 1.1 (0-2) % Lymph # (Auto) 1.6 (1.2-4.9) X10*3/uL [place] # (Auto) 1.1 (0.1-1.2) X10*3/uL Eos # (Auto) 0.0 (0.0-0.4) X10*3/uL Baso # (Auto) 0.1 (0.0-0.2) X10*3/uL Abs Immat Gran (auto) 0.04 H (0.00-0.03) X10*3/uL Absolute Neuts (auto) 4.3 (2.0-8.3) x10*3/uL Absolute Nucleated RBC 0.000 (0.0-0.012) X10*3/uL Nucleated RBC % (auto) 0.0 (0.0-0.2) /100WBC Sodium (135-145) mmol/L Potassium (3.3-5.1) mmol/L Chloride (96-108) mmol/L Carbon Dioxide (22-29) mmol/L Anion Gap (12-20) BUN (9-16) mg/dL Creatinine (0.5-1.4) mg/dL Estim Creat Clear Calc Estimated GFR Random Glucose (60-115) mg/dL Calcium (8.4-10.2) mg/dL Magnesium (1.6-2.6) mg/dL Total Bilirubin (0.0-1.0) mg/dL Direct Bilirubin (0.0-0.5) mg/dL AST (5-37) U/L ALT (0-40) U/L Alkaline Phosphatase (39-117) U/L Total Protein (6.5-8.0) g/dL Albumin (3.5-5.0) g/dL Lipase (8-78) U/L Ethyl Alcohol < 10 mg/dL COVID-19 ([facility]USTIN) Negative (Negative) COVID-19 Clin Com See Note 06/30/21 Range/Units 09:09 WBC (4.8-10.8) X10*3/uL RBC (4.60-5.80) X10*6/uL Hgb (14.0-18.0) g/dl Hct (42.0-52.0) % MCV (80.0-98.0) fL MCH (27.0-33.0) pg MCHC (31.0-36.0) g/dl RDW (11.0-16.0) % Plt Count (160-400) X10*3/uL MPV (9.4-12.4) fL Immature Gran % (Auto) (0.0-0.4) % Neut % (Auto) (45-73) % Lymph % (Auto) (20-40) % [place] % (Auto) (2-11) % Eos % (Auto) (0-4) % Baso % (Auto) (0-2) % Lymph # (Auto) (1.2-4.9) X10*3/uL [place] # (Auto) (0.1-1.2) X10*3/uL Eos # (Auto) (0.0-0.4) X10*3/uL Baso # (Auto) (0.0-0.2) X10*3/uL Abs Immat Gran (auto) (0.00-0.03) X10*3/uL Absolute Neuts (auto) (2.0-8.3) x10*3/uL Absolute Nucleated RBC (0.0-0.012) X10*3/uL Nucleated RBC % (auto) (0.0-0.2) /100WBC Sodium 133 L (135-145) mmol/L Potassium 3.3 (3.3-5.1) mmol/L Chloride 97 (96-108) mmol/L Carbon Dioxide 24 (22-29) mmol/L Anion Gap 15 (12-20) BUN 10 (9-16) mg/dL Creatinine 0.79 (0.5-1.4) mg/dL Estim Creat Clear Calc 188.9 Estimated GFR > 60 Random Glucose 128 H D (60-115) mg/dL Calcium 10.3 H (8.4-10.2) mg/dL Magnesium 1.5 L (1.6-2.6) mg/dL Total Bilirubin 1.1 H (0.0-1.0) mg/dL Direct Bilirubin 0.4 (0.0-0.5) mg/dL AST 89 H (5-37) U/L ALT 232 H (0-40) U/L Alkaline Phosphatase 65 (39-117) U/L Total Protein 7.2 (6.5-8.0) g/dL Albumin 4.4 (3.5-5.0) g/dL Lipase 65 (8-78) U/L Ethyl Alcohol mg/dL COVID-19 (DUSTIN) (Negative) COVID-19 Clin Com ECG Data ECG #1: Attestation: I personally reviewed and interpreted this ECG as follows: ECG interpretation date: 06/30/21 ECG interpretation time: 08:54 Interpretation: Rate: 113 Rhythm: sinus tachycardia [place]: normal Normal P waves. Normal CHET. Normal QRS complex. ST T wave : no WILLIE, nonspecific qTC: prolonged prior studies: no acute ischemia The study has been interpreted contemporaneously by me. . Critical Care Time Critical Care Time Critical Care Time: Yes Total Critical Care Time: 35 Attestation: review of records, IV ativan, IV magnesium I attest to this time spent taking care of the patient Discharge Plan Discharge Clinical Impression: Hypomagnesemia, Elevated liver function tests Alcohol withdrawal syndrome Qualifiers: Complication of substance-induced condition: uncomplicated Qualified Code(s): F10.230 - Alcohol dependence with withdrawal, uncomplicated Patient Disposition: Home, Self-Care Instructions: Alcohol Withdrawal (ED), Hypomagnesemia (ED) Additional Instructions: return to ED for any worsening symptoms or concerns please go to your appointment tomorrow - good luck Prescriptions: New ondansetron 4 mg tablet,disintegrating 4 mg PO Q8H PRN (Reason: nausea and vomiting) Qty: 20 0RF lorazepam [Ativan] 1 mg tablet 1 mg PO TID PRN (Reason: alcohol withdrawal) Qty: 6 0RF No Action lisinopril 20 mg tablet 20 mg PO DAILY Qty: 90 8RF hydrochlorothiazide 25 mg tablet 25 mg PO DAILY Qty: 90 8RF omeprazole 20 mg capsule,delayed release(DR/EC) 20 mg PO DAILY 90 Days Qty: 90 8RF naltrexone 50 mg tablet 50 mg PO DAILY Qty: 30 2RF alprazolam 1 mg tablet 1 mg PO TID PRN (Reason: anxiety) Qty: 90 5RF albuterol sulfate 90 mcg/actuation HFA aerosol inhaler 2 puff PO Q6H PRN0RF folic acid 1 mg tablet 1 mg PO DAILY Qty: 30 1RF thiamine HCl (vitamin B1) 100 mg tablet 100 mg PO DAILY Qty: 30 1RF
[2021-06-30 09:13] LABS: MANUAL DIFF FLAG NO
[2021-06-30 09:17] LABS: Basophils Absolute Auto 0.1 X10*3/uL (0.0-0.2); Basophils Percent Auto 1.1 % (0-2); Eosinophils Percent Auto 0.1 % (0-4); Hematocrit 49.5 % (42.0-52.0); Hemoglobin 17.1 g/dl (14.0-18.0); Imm Gran Abs Auto 0.04 X10*3/uL (0.00-0.03); Imm Gran Pct Auto 0.6 % (0.0-0.4); Lymphocytes Absolute Auto 1.6 X10*3/uL (1.2-4.9); Lymphocytes Percent Auto 21.9 % (20-40); Mean Corpuscular HGB Conc 34.5 g/dl (31.0-36.0); Mean Corpuscular Hemoglobin 31.5 pg (27.0-33.0); Mean Corpuscular Volume 91.2 fL (80.0-98.0); Mean Platelet Volume 8.7 fL (9.4-12.4); Monocytes Absolute Auto 1.1 X10*3/uL (0.1-1.2); Monocytes Percent Auto 15.8 % (2-11); Neutrophils Absolute Auto 4.3 x10*3/uL (2.0-8.3); Neutrophils Percent Auto 60.5 % (45-73); Platelet Count 364 X10*3/uL (160-400); Red Blood Count 5.43 X10*6/uL (4.60-5.80); Red Cell Distribution Width 13.5 % (11.0-16.0); White Blood Count 7.2 X10*3/uL (4.8-10.8)
[2021-06-30] MEDS: Magnesium Sulfate/H2O 2 GM/50 ML PIGGYBACK IV (09:25)
[2021-06-30] MEDS: 0.9 % Sodium Chloride 1,000 ML 999 ML IVCONT (09:25)
[2021-06-30] MEDS: ondansetron HCL 4 MG/2 ML VIAL IVPUSH (09:25)
[2021-06-30] MEDS: LORazepam 2 MG/ML VIAL IVPUSH (09:25)
[2021-06-30 09:38] LABS: Ethanol < 10 mg/dL
[2021-06-30 09:42] LABS: Alanine Aminotransferase 232 U/L (0-40); Albumin Level 4.4 g/dL (3.5-5.0); Alkaline Phosphatase 65 U/L (39-117); Anion Gap 15 (12-20); Aspartate Amino Transferase 89 U/L (5-37); Bilirubin Direct 0.4 mg/dL (0.0-0.5); Bilirubin Total 1.1 mg/dL (0.0-1.0); Blood Urea Nitrogen 10 mg/dL (9-16); Calcium 10.3 mg/dL (8.4-10.2); Carbon Dioxide 24 mmol/L (22-29); Chloride 97 mmol/L (96-108); Creatinine Clr Calc Pharmacy 188.9; Estimated Glomerular Filt Rate > 60; Glucose Random 128 mg/dL (60-115); Lipase 65 U/L (8-78); Magnesium 1.5 mg/dL (1.6-2.6); Potassium 3.3 mmol/L (3.3-5.1); Sodium 133 mmol/L (135-145); Total Protein 7.2 g/dL (6.5-8.0)
[2021-06-30 09:43] LABS: COVID-19 Test Negative (Negative)
[2021-06-30 10:39] VITALS: BP 115/69; PULSE 98; RESP 18; TEMP 37; O2SAT 98
--- NOTE | 2021-06-30 10:41 | PC.NURSE ---
Patient is alert and oriented x4, pleasant and cooperative. VSS. Patient denies pain/discomfort/nausea/vomiting-no focal deficits.
== END 2021-06-30 11:29 | disposition home or self-care (01) ==
PROVIDERS: Emergency Provider Emergency Medicine; PCP Internal Medicine
DX: F10.230 Alcohol dependence with withdrawal, uncomplicated (principal); E83.42 Hypomagnesemia; R94.5 Abnormal results of liver function studies; I10 Essential (primary) hypertension; Z20.822 Contact with and (suspected) exposure to COVID-19
CPT/HCPCS: 80048; 80076; 82077; 83690; 83735; 85025; 87635; 93005; 96365; 96366; 96375; 99285; 99291; J2060; J2405; J3475

== ENCOUNTER → 2021-07-01 13:03 | Outpatient (BNVA) | payer OTHER, SELFPAY | PROVIDERS: Visit Provider Nurse Practitioner Psychiatric/Mental Health | DX: F10.20 Alcohol dependence, uncomplicated (principal) | CPT/HCPCS: 80305; 99211 ==

== ENCOUNTER 2021-07-29 23:26 | Emergency (ER) | payer OTHER, SELFPAY ==
--- NOTE | 2021-07-29 | ECG_ITS ---
Test Reason : ALCOHOL WITHDRAWL Blood Pressure : / mmHG Vent. Rate : 120 BPM Atrial Rate : 120 BPM P-R Int : 144 ms QRS Dur : 084 ms QT Int : 332 ms P-R-T Axes : 053 015 035 degrees QTc Int : 469 ms Sinus tachycardia Otherwise normal ECG When compared with ECG of 30-JUN-2021 08:42, No significant change was found Referred By: Denise Henson Electronically Signed By:Dilip Reyes
[2021-07-29 23:55] VITALS: BP 159/94; PULSE 125; RESP 20; TEMP 37.1; O2SAT 97; BMI 36.2
[2021-07-29 23:58] LABS: Basophils Absolute Auto 0.1 X10*3/uL (0.0-0.2); Eosinophils Percent Auto 0.1 % (0-4); Hematocrit 48.7 % (42.0-52.0); Hemoglobin 16.6 g/dl (14.0-18.0); Imm Gran Abs Auto 0.02 X10*3/uL (0.00-0.03); Imm Gran Pct Auto 0.3 % (0.0-0.4); Lymphocytes Absolute Auto 1.6 X10*3/uL (1.2-4.9); Lymphocytes Percent Auto 21.7 % (20-40); MANUAL DIFF FLAG NO; Mean Corpuscular HGB Conc 34.1 g/dl (31.0-36.0); Mean Corpuscular Hemoglobin 31.6 pg (27.0-33.0); Mean Corpuscular Volume 92.6 fL (80.0-98.0); Mean Platelet Volume 8.5 fL (9.4-12.4); Monocytes Absolute Auto 1.2 X10*3/uL (0.1-1.2); Monocytes Percent Auto 15.9 % (2-11); Neutrophils Absolute Auto 4.4 x10*3/uL (2.0-8.3); Platelet Count 402 X10*3/uL (160-400); Red Blood Count 5.26 X10*6/uL (4.60-5.80); Red Cell Distribution Width 13.2 % (11.0-16.0); White Blood Count 7.2 X10*3/uL (4.8-10.8)
[2021-07-30 00:14] LABS: Ethanol < 10 mg/dL
[2021-07-30 00:15] LABS: COVID-19 Test Positive (Negative)
[2021-07-30 00:22] LABS: Alanine Aminotransferase 216 U/L (0-40); Albumin Level 4.4 g/dL (3.5-5.0); Alkaline Phosphatase 65 U/L (39-117); Anion Gap 16 (12-20); Aspartate Amino Transferase 55 U/L (5-37); Bilirubin Total 1.3 mg/dL (0.0-1.0); Blood Urea Nitrogen 11 mg/dL (9-16); Calcium 10.2 mg/dL (8.4-10.2); Carbon Dioxide 27 mmol/L (22-29); Chloride 97 mmol/L (96-108); Creatinine Clr Calc Pharmacy 194.1; Estimated Glomerular Filt Rate > 60; Glucose Random 114 mg/dL (60-115); Potassium 3.7 mmol/L (3.3-5.1); Sodium 136 mmol/L (135-145); Total Protein 7.2 g/dL (6.5-8.0)
--- NOTE | 2021-07-30 00:52 | ED_ITS ---
HPI - Alcohol General Chief Complaint: ETOH/Substance Use Stated Complaint: alcohol withdrawal Time Seen by Provider: 07/30/21 00:20 Source: patient Mode of arrival: ambulatory Limitations: no limitations History of Present Illness HPI narrative: This is a 30-year-old male past medical history significant for alcohol use disorder currently on naltrexone presenting to the emergency department with concerns he may be in alcohol withdrawal. Patient tells me he recently started seeing Hansa Avelar as he is trying to stop drinking. He tells me he usually drinks a few L of gin every day, he tells me sometimes it is 1 sometimes it is more. Last drink was Monday night. Patient tells me he feels like his heart is racing and he feels slightly shaky. He has no history of alcohol withdraw. He tells me he has been drinking since he was 19. Patient denies visual, auditory and tactile hallucinations. Denies drugs and tobacco use. Denies any other medical complaints other than palpitations, and vague complaints of nausea MD complaint: alcohol withdrawal and alcohol dependence Chronic alcohol use: Yes Previous visits for alcohol intoxication: Yes Recent trauma: No Associated symptoms: other (Palpitations) Treatments prior to arrival: none Related Data Home Medications Medication Instructions Recorded Confirmed albuterol sulfate 90 mcg/actuation 2 puff PO Q6H PRN 03/11/20 03/11/20 aerosol inhaler Previous Rx's Medication Instructions Recorded lisinopril 20 mg tablet 20 mg PO DAILY #90 tab 12/25/19 hydrochlorothiazide 25 mg tablet 25 mg PO DAILY #90 tab 02/24/20 omeprazole 20 mg capsule,delayed 20 mg PO DAILY 90 Days #90 cap 04/26/21 release naltrexone 50 mg tablet 50 mg PO DAILY #30 tab 05/07/21 folic acid 1 mg tablet 1 mg PO DAILY #30 tab 05/20/21 thiamine HCl (vitamin B1) 100 mg 100 mg PO DAILY #30 tab 05/20/21 tablet alprazolam 1 mg tablet 1 mg PO TID PRN #90 tab 06/17/21 lorazepam 1 mg tablet (Ativan) 1 mg PO TID PRN #6 tab 06/30/21 ondansetron 4 mg disintegrating 4 mg PO Q8H PRN #20 tab 06/30/21 tablet Allergies Allergy/AdvReac Type Severity Reaction Status Date / Time No Known Allergies Allergy Verified 07/29/21 23:54 [No Known Allergies*] Review of Systems Review of Systems: Constitutional : No Weight loss, No Fever, No Chills, No Fatigue, No Malaise ENT/Mouth : No sore throat, No Rhinorrhea Eyes: No Eye Pain, No Swelling, No Redness Cardiovascular : No Chest Pain, No SOB, No Dyspnea on Exertion, No Orthopnea, No Edema, + Palpitations Respiratory : No Cough, No Sputum, No Wheezing Gastrointestinal : No Nausea, No Vomiting, No Diarrhea, No Constipation, No abdominal Pain, No Hematochezia, No Melena Genitourinary : No Dysuria, No Urinary Frequency, No Hematuria, Musculoskeletal : No joint pain, No Myalgias, No Joint Swelling Skin : No Skin Lesions, No rash Neuro : No Weakness, No Numbness, No Dizziness, No Headache Psych : No Anxiety/Panic, No Depression All other systems reviewed and are negative [facility] Past Medical History Attestation statement: The following information was validated with the patient. Source: old records reviewed and nursing notes reviewed Medical History Alcohol dependence Alcoholic hepatitis Anxiety Depression Hypertension Surgical History No history of previous surgery Family History Family History Mother No problems noted. Father No problems noted. Social History Social History Alcohol intake: current Alcohol intake frequency: former alcohol drinker Alcohol type: hard liquor Patient Tobacco Use Status: Never used Tobacco Substance Use Type: Marijuana Advance Directives: No Advance Directives Information Provided: Yes Physical Exam ED Vital Signs: Vital Signs - 24 hr 07/29/21 23:55 07/30/21 03:23 Temperature 98.8 F 98.5 F Pulse Rate 125 H 108 H Respiratory Rate 20 16 Blood Pressure 159/94 H 154/98 H Pulse Oximetry 97 95 BMI result Body Mass Index 36.2 Patient is noted to be slightly hypertensive and tachycardic Appearance: Alert.? Oriented X3.? No acute distress.? Patient appears slightly diaphoretic, and his cheeks appear to be flushed bilaterally. Patient noted to be slightly anxious. Head: Normocephalic, atraumatic, no step-offs or deformities Eyes: Pupils equal, round and reactive to light.? ENT: Pharynx normal.? Neck: Normal inspection.? Neck supple.? CVS: Rapid rate regular rhythm. Pulses normal.? Respiratory: No respiratory distress.? Breath sounds normal.? Abdomen: Soft and nontender.? Skin: Skin warm and dry.? Normal skin color.? Normal skin turgor.? Extremities: No lower extremity edema.? No calf ttp. 5/5 strength to bilateral upper and lower extremities. Resting tremor to bilateral upper extremities, no asterixis. Back: No midline tenderness, no C-spine tenderness, full range of motion, no CVA tenderness bilaterally Neuro: Oriented X 3.? No motor deficit.? No sensory deficit. CN 2-12 intact Course Reevaluation(s) Reevaluation #1: Patient appears much better after 2 L of fluids, 2 mg of p.o. Ativan. Patient is still slightly tachycardic however blood pressure improved. Will receive a 3rd liter of fluids. CBC within normal limits. Chemistry with no acute electrolyte abnormalities requiring intervention. Patient noted to have an elevated total bili Jack, transaminases slightly elevated which appears to be patient's baseline. Troponin negative. Ethanol negative. Patient is noted to be COVID positive however he did test positive a few weeks ago he tells me he is asymptomatic. Plan at this time is to administer the third L of fluids, recheck vitals and discharge patient home. Patient is on naltrexone for this reason will have him follow up with Hansa Avelar for guidance as soon as possible. Sign out given to pending improvment and reevaluation. Time: 04:53 MDM - Alcohol [facility] Narrative Medical decision making narrative: 004 [age] presents with alcohol withdrawal, tremors and palpitations x1 day. Last drink was on Monday. Currently on naltrexone recently started on it. Slightly nauseaus. Physical examination for anxious 30-year-old male with some diaphoresis, his face appears to be flushed. A rapid regular rhythm likely sinus tachycardia. Lungs clear. Neuro exam is nonfocal. Slight resting tremor. No tongue fasciculations. Plan at this time is to obtain lab work, an EKG, troponin, urine, FLORES, ethanol level, close observation. Patient will be given 2 mg of p.o. Ativan for symptomatic relief and for seizure prophylaxis Likely alcohol. ACS. Unlikely alcoholic encephalopathy. Patient has a nonfocal neuro exam with normal mentation, no asterixis. Medical Records Attestation: I reviewed the patient's medical records. Lab Data Attestation: I reviewed the patient's lab results. Result diagrams: 07/29/21 23:51 07/29/21 23:51 Labs: Lab Results 07/29/21 07/29/21 07/29/21 Range/Units 23:51 23:51 23:51 WBC 7.2 (4.8-10.8) X10*3/uL RBC 5.26 (4.60-5.80) X10*6/uL Hgb 16.6 (14.0-18.0) g/dl Hct 48.7 (42.0-52.0) % MCV 92.6 (80.0-98.0) fL MCH 31.6 (27.0-33.0) pg MCHC 34.1 (31.0-36.0) g/dl RDW 13.2 (11.0-16.0) % Plt Count 402 H (160-400) X10*3/uL MPV 8.5 L (9.4-12.4) fL Immature Gran % (Auto) 0.3 (0.0-0.4) % Neut % (Auto) 61.0 (45-73) % Lymph % (Auto) 21.7 (20-40) % [place] % (Auto) 15.9 H (2-11) % Eos % (Auto) 0.1 (0-4) % Baso % (Auto) 1.0 (0-2) % Lymph # (Auto) 1.6 (1.2-4.9) X10*3/uL [place] # (Auto) 1.2 (0.1-1.2) X10*3/uL Eos # (Auto) 0.0 (0.0-0.4) X10*3/uL Baso # (Auto) 0.1 (0.0-0.2) X10*3/uL Abs Immat Gran (auto) 0.02 (0.00-0.03) X10*3/uL Absolute Neuts (auto) 4.4 (2.0-8.3) x10*3/uL Absolute Nucleated RBC 0.000 (0.0-0.012) X10*3/uL Nucleated RBC % (auto) 0.0 (0.0-0.2) /100WBC Sodium 136 (135-145) mmol/L Potassium 3.7 (3.3-5.1) mmol/L Chloride 97 (96-108) mmol/L Carbon Dioxide 27 (22-29) mmol/L Anion Gap 16 (12-20) BUN 11 (9-16) mg/dL Creatinine 0.74 (0.5-1.4) mg/dL Estim Creat Clear Calc 194.1 Estimated GFR > 60 Random Glucose 114 (60-115) mg/dL Calcium 10.2 (8.4-10.2) mg/dL Total Bilirubin 1.3 H (0.0-1.0) mg/dL AST 55 H (5-37) U/L ALT 216 H (0-40) U/L Alkaline Phosphatase 65 (39-117) U/L Troponin I High Sens (<3.5-35.0) ng/L Total Protein 7.2 (6.5-8.0) g/dL Albumin 4.4 (3.5-5.0) g/dL Ethyl Alcohol mg/dL COVID-19 ([facility]IN) (Negative) COVID-19 Clin Com Influenza Type A ([place]) Negative (Negative) Influenza Type B ([place]) Negative (Negative) Influenza A & B Note See Note 07/29/21 07/29/21 07/30/21 Range/Units 23:51 23:51 01:40 WBC (4.8-10.8) X10*3/uL RBC (4.60-5.80) X10*6/uL Hgb (14.0-18.0) g/dl Hct (42.0-52.0) % MCV (80.0-98.0) fL MCH (27.0-33.0) pg MCHC (31.0-36.0) g/dl RDW (11.0-16.0) % Plt Count (160-400) X10*3/uL MPV (9.4-12.4) fL Immature Gran % (Auto) (0.0-0.4) % Neut % (Auto) (45-73) % Lymph % (Auto) (20-40) % [place] % (Auto) (2-11) % Eos % (Auto) (0-4) % Baso % (Auto) (0-2) % Lymph # (Auto) (1.2-4.9) X10*3/uL [place] # (Auto) (0.1-1.2) X10*3/uL Eos # (Auto) (0.0-0.4) X10*3/uL Baso # (Auto) (0.0-0.2) X10*3/uL Abs Immat Gran (auto) (0.00-0.03) X10*3/uL Absolute Neuts (auto) (2.0-8.3) x10*3/uL Absolute Nucleated RBC (0.0-0.012) X10*3/uL Nucleated RBC % (auto) (0.0-0.2) /100WBC Sodium (135-145) mmol/L Potassium (3.3-5.1) mmol/L Chloride (96-108) mmol/L Carbon Dioxide (22-29) mmol/L Anion Gap (12-20) BUN (9-16) mg/dL Creatinine (0.5-1.4) mg/dL Estim Creat Clear Calc Estimated GFR Random Glucose (60-115) mg/dL Calcium (8.4-10.2) mg/dL Total Bilirubin (0.0-1.0) mg/dL AST (5-37) U/L ALT (0-40) U/L Alkaline Phosphatase (39-117) U/L Troponin I High Sens < 3.5 (<3.5-35.0) ng/L Total Protein (6.5-8.0) g/dL Albumin (3.5-5.0) g/dL Ethyl Alcohol < 10 mg/dL COVID-19 ([facility]IN) Positive A (Negative) COVID-19 Clin Com See Note Influenza Type A ([place]) (Negative) Influenza Type B ([place]) (Negative) Influenza A & B Note Critical Care Time Critical Care Time Critical Care Time: No Discharge Plan Discharge Clinical Impression: Alcohol dependence, Alcohol withdrawal syndrome Patient Disposition: Home, Self-Care Instructions: Alcohol Withdrawal (ED), Alcohol Dependence (ED) Additional Instructions: Take your medications as prescribed. Follow-up with your primary care provider this week. Return to the emergency department with new or worsening symptoms. Such as fevers, chills, chest pain, shortness of breath, nausea, vomiting, dizziness, headache, vision changes, lethargy, seizures, altered mental status, seeing or hearing things that are not there, feeling things crawling upper skin, In case of emergency call 911 Prescriptions: No Action lisinopril 20 mg tablet 20 mg PO DAILY Qty: 90 8RF hydrochlorothiazide 25 mg tablet 25 mg PO DAILY Qty: 90 8RF omeprazole 20 mg capsule,delayed release(DR/EC) 20 mg PO DAILY 90 Days Qty: 90 8RF naltrexone 50 mg tablet 50 mg PO DAILY Qty: 30 2RF alprazolam 1 mg tablet 1 mg PO TID PRN (Reason: anxiety) Qty: 90 5RF ondansetron 4 mg tablet,disintegrating 4 mg PO Q8H PRN (Reason: nausea and vomiting) Qty: 20 0RF lorazepam [Ativan] 1 mg tablet 1 mg PO TID PRN (Reason: alcohol withdrawal) Qty: 6 0RF albuterol sulfate 90 mcg/actuation HFA aerosol inhaler 2 puff PO Q6H PRN0RF folic acid 1 mg tablet 1 mg PO DAILY Qty: 30 1RF thiamine HCl (vitamin B1) 100 mg tablet 100 mg PO DAILY Qty: 30 1RF Referrals: Doni Cazares MD [Primary Care Provider] - 2 days Hansa Avelar CNP [Nurse Practitioner] - 1 day Stand Alone Forms: Work/School Release
[2021-07-30 01:04] LABS: IDNOW Serial# 16C4AD1C
[2021-07-30 01:05] LABS: Influenza A Negative (Negative); Influenza B2 Negative (Negative)
[2021-07-30] MEDS: LORazepam 1 MG TABLET 2 MG PO (01:11)
[2021-07-30] MEDS: 0.9 % Sodium Chloride 1,000 ML 999 ML IV ×3 (01:12→05:37)
[2021-07-30 02:15] LABS: Troponin-I High Sensitivity < 3.5 ng/L (<3.5-35.0)
[2021-07-30 03:23] VITALS: BP 154/98; PULSE 108; RESP 16; TEMP 36.9; O2SAT 95
[2021-07-30 05:04] VITALS: BP 134/94; PULSE 96; RESP 23; TEMP 36.6; O2SAT 98
[2021-07-30 07:13] VITALS: BP 134/87; PULSE 92; RESP 24; O2SAT 98
== END 2021-07-30 07:18 | disposition home or self-care (01) ==
PROVIDERS: Physician Assistant; Emergency Provider Student in an Organized Health Care Education/Training Program; PCP Internal Medicine
DX: U07.1 COVID-19 (principal); F10.230 Alcohol dependence with withdrawal, uncomplicated; Y90.0 Blood alcohol level of less than 20 mg/100 ml; R00.2 Palpitations; K70.10 Alcoholic hepatitis without ascites; I10 Essential (primary) hypertension; R00.0 Tachycardia, unspecified; F41.9 Anxiety disorder, unspecified; F32.9 Major depressive disorder, single episode, unspecified; Z79.899 Other long term (current) drug therapy
CPT/HCPCS: 36415; 80053; 82077; 84484; 85025; 87502; 87635; 93005; 96360; 96361; 99284; 99285

== ENCOUNTER → 2021-08-05 14:09 | Outpatient (BNVA) | payer OTHER, SELFPAY | PROVIDERS: PCP Internal Medicine; Visit Provider Nurse Practitioner Psychiatric/Mental Health | DX: Z51.81 Encounter for therapeutic drug level monitoring (principal); F11.20 Opioid dependence, uncomplicated | CPT/HCPCS: 80305; 99212 ==

== ENCOUNTER → 2021-08-19 14:10 | Outpatient (BNVA) | payer OTHER, SELFPAY | PROVIDERS: PCP Internal Medicine; Visit Provider Nurse Practitioner Psychiatric/Mental Health | DX: F10.20 Alcohol dependence, uncomplicated (principal); Z79.899 Other long term (current) drug therapy | CPT/HCPCS: 80305; 99212 ==

== ENCOUNTER 2021-08-24 22:18 | Emergency (ER) | payer OTHER, SELFPAY ==
--- NOTE | 2021-08-24 | ECG_ITS ---
Test Reason : PALPITATIONS Blood Pressure : / mmHG Vent. Rate : 112 BPM Atrial Rate : 112 BPM P-R Int : 138 ms QRS Dur : 086 ms QT Int : 352 ms P-R-T Axes : 050 018 041 degrees QTc Int : 480 ms Sinus tachycardia Otherwise normal ECG When compared with ECG of 29-JUL-2021 23:40, No significant change was found Referred By: Generic ED Physician Electronically Signed By:LUDWIG DOVE MD
[2021-08-24 22:31] VITALS: BP 154/93; PULSE 124; RESP 18; TEMP 36.6; O2SAT 96; BMI 37.2
[2021-08-24 22:54] LABS: MANUAL DIFF FLAG NO
[2021-08-24 23:02] LABS: Basophils Absolute Auto 0.1 X10*3/uL (0.0-0.2); Basophils Percent Auto 0.9 % (0-2); Eosinophils Percent Auto 0.2 % (0-4); Hematocrit 46.7 % (42.0-52.0); Hemoglobin 16.1 g/dl (14.0-18.0); Imm Gran Abs Auto 0.03 X10*3/uL (0.00-0.03); Imm Gran Pct Auto 0.3 % (0.0-0.4); Lymphocytes Absolute Auto 2.2 X10*3/uL (1.2-4.9); Lymphocytes Percent Auto 25.6 % (20-40); Mean Corpuscular HGB Conc 34.5 g/dl (31.0-36.0); Mean Corpuscular Hemoglobin 31.8 pg (27.0-33.0); Mean Corpuscular Volume 92.1 fL (80.0-98.0); Mean Platelet Volume 8.4 fL (9.4-12.4); Monocytes Absolute Auto 1.2 X10*3/uL (0.1-1.2); Monocytes Percent Auto 13.3 % (2-11); Neutrophils Absolute Auto 5.2 x10*3/uL (2.0-8.3); Neutrophils Percent Auto 59.7 % (45-73); Platelet Count 399 X10*3/uL (160-400); Red Blood Count 5.07 X10*6/uL (4.60-5.80); Red Cell Distribution Width 13.6 % (11.0-16.0); White Blood Count 8.7 X10*3/uL (4.8-10.8)
[2021-08-24 23:09] LABS: Ethanol 26 mg/dL
[2021-08-24 23:13] LABS: Alanine Aminotransferase 118 U/L (0-40); Albumin Level 4.7 g/dL (3.5-5.0); Alkaline Phosphatase 63 U/L (39-117); Anion Gap 19 (12-20); Aspartate Amino Transferase 61 U/L (5-37); Bilirubin Total 0.9 mg/dL (0.0-1.0); Blood Urea Nitrogen 9 mg/dL (9-16); Calcium 9.9 mg/dL (8.4-10.2); Carbon Dioxide 24 mmol/L (22-29); Chloride 95 mmol/L (96-108); Estimated Glomerular Filt Rate > 60; Glucose Random 93 mg/dL (60-115); Potassium 3.8 mmol/L (3.3-5.1); Sodium 134 mmol/L (135-145); Total Protein 7.5 g/dL (6.5-8.0)
[2021-08-24 23:16] LABS: Troponin-I High Sensitivity < 3.5 ng/L (<3.5-35.0)
--- NOTE | 2021-08-24 23:40 | ED_ITS ---
HPI - Alcohol General Chief Complaint: ETOH/Substance Use Stated Complaint: Sob/Palpitations Time Seen by Provider: 08/24/21 23:39 Source: patient Mode of arrival: ambulatory Limitations: no limitations History of Present Illness MD complaint: alcohol withdrawal Last drink: Hours (ago) (13) Amount of alcohol consumed: 2L of gin Chronic alcohol use: Yes Previous visits for alcohol intoxication: Yes Recent trauma: No Treatments prior to arrival: none Related Data Home Medications Medication Instructions Recorded Confirmed albuterol sulfate 90 mcg/actuation 2 puff PO Q6H PRN 03/11/20 03/11/20 aerosol inhaler Previous Rx's Medication Instructions Recorded lisinopril 20 mg tablet 20 mg PO DAILY #90 tabs 12/25/19 hydrochlorothiazide 25 mg tablet 25 mg PO DAILY #90 tabs 02/24/20 omeprazole 20 mg capsule,delayed 20 mg PO DAILY 90 days #90 caps 04/26/21 release folic acid 1 mg tablet 1 mg PO DAILY #30 tabs 05/20/21 thiamine HCl (vitamin B1) 100 mg 100 mg PO DAILY #30 tabs 05/20/21 tablet alprazolam 1 mg tablet 1 mg PO TID PRN anxiety #90 tabs 06/17/21 lorazepam 1 mg tablet (Ativan) 1 mg PO TID PRN alcohol withdrawal 06/30/21 #6 tabs ondansetron 4 mg disintegrating 4 mg PO Q8H PRN nausea and 06/30/21 tablet vomiting #20 tabs naltrexone 50 mg tablet 50 mg PO DAILY #30 tabs 08/05/21 chlordiazepoxide HCl 25 mg capsule 25 mg PO Q6H PRN alcohol 08/25/21 withdrawal #14 caps Allergies Allergy/AdvReac Type Severity Reaction Status Date / Time No Known Allergies Allergy Verified 07/29/21 23:54 [No Known Allergies*] Review of Systems Review of Systems: Constitutional : No Weight loss, No Fever, No Chills, No Fatigue, No Malaise ENT/Mouth : No sore throat, No Rhinorrhea Eyes: No Eye Pain, No Swelling, No Redness Cardiovascular : No Chest Pain, + SOB, No Dyspnea on Exertion, No Orthopnea, No Edema, + Palpitations Respiratory : No Cough, No Sputum, No Wheezing Gastrointestinal : No Nausea, No Vomiting, No Diarrhea, No Constipation, No abdominal Pain, No Hematochezia, No Melena Genitourinary : No Dysuria, No Urinary Frequency, No Hematuria, Musculoskeletal : No joint pain, No Myalgias, No Joint Swelling Skin : No Skin Lesions, No rash Neuro : No Weakness, No Numbness, No Dizziness, No Headache Psych : + Anxiety/Panic, No Depression All other systems reviewed and are negative Yes all other systems are reviewed and are negative [facility] Past Medical History Attestation statement: The following information was validated with the patient. Source: old records reviewed and nursing notes reviewed Medical History Hypertension Surgical History No history of previous surgery Family History Family History Mother No problems noted. Father No problems noted. Social History Social History Alcohol intake: current Alcohol intake frequency: former alcohol drinker Alc ohol type: hard liquor Patient Tobacco Use Status: Never used Tobacco Substance Use Type: Marijuana Advance Directives: No Physical Exam ED Vital Signs: Vital Signs - 24 hr 08/24/21 22:31 08/25/21 00:29 Temperature 97.9 F Pulse Rate 124 H 106 H Respiratory Rate 18 16 Blood Pressure 154/93 H 135/88 Pulse Oximetry 96 97 Oxygen Delivery Method Room Air Room Air BMI result Body Mass Index 37.2 Patient is noted to be tachycardic, slightly hypertensive consistent with autonomic dysfunction alcohol withdrawal Appearance: Alert.? Oriented X3.? No acute distress.?+ patient appears uncomfortable and anxious Head: Normocephalic, atraumatic, no step-offs or deformities Eyes: Pupils equal, round and reactive to light.? ENT: Pharynx normal.? Neck: Normal inspection.? Neck supple.? CVS: + rapid rate regular rhythm.? Pulses normal.? Respiratory: No respiratory distress.? Breath sounds normal.? Abdomen: Soft and nontender.? Skin: Skin warm and dry.? Normal skin color.? Normal skin turgor.?+ diaphoresis Extremities: No lower extremity edema.? No calf ttp. 5/5 strength to bilateral upper and lower extremities + tremors to bilateral upper extremities, at rest Back: No midline tenderness, no C-spine tenderness, full range of motion, no CVA tenderness bilaterally Neuro: Oriented X 3.? No motor deficit.? No sensory deficit. CN 2-12 intact Course Reevaluation(s) Reevaluation #1: Patient's CBC appears to be at patient's baseline, no acute findings. Patient's sodium slightly low 134, other acute electrolyte abnormalities. Transaminases slightly elevated likely secondary to alcohol abuse. Patient's troponin is negative, EKG nonischemic unlikely that this is ACS. Ethanol level 26. I added a magnesium level on this patient that is currently pending. Time: 22:47 Reevaluation #2: Magnesium normal. Patient's CIWA still 3. Will given additional mg of Ativan and fluids Time: 01:02 Reevaluation #3: Patient with symptomatic improvement after 2nd mg of Ativan. 2 L fluids running at this time. CIWA 2. Sign-out given to pending improvment Time: 02:08 MDM - Alcohol MDM Narrative Medical decision making narrative: 2[age] yo m presents w/ acute alcohol withdrawal, last drink was at 10:30 this morning. Denies SI and HI. Physical exam with rapid regular rhythm, lungs clear, patient with a nonfocal neuro exam, resting tremors to bilateral upper extremities, diaphoresis, patient appears anxious and jittery. CIWA-3 Plan- labs, ethonal, u tox, cardiac monitoring, ciwa Q4H, trop, EKG Medical Records Attestation: I reviewed the patient's medical records. Lab Data Attestation: I reviewed the patient's lab results. Result diagrams: 08/24/21 22:47 08/24/21 22:47 Labs: Lab Results 08/24/21 08/24/21 08/24/21 Range/Units 22:47 22:47 22:47 WBC 8.7 (4.8-10.8) X10*3/uL RBC 5.07 (4.60-5.80) X10*6/uL Hgb 16.1 (14.0-18.0) g/dl Hct 46.7 (42.0-52.0) % MCV 92.1 (80.0-98.0) fL MCH 31.8 (27.0-33.0) pg MCHC 34.5 (31.0-36.0) g/dl RDW 13.6 (11.0-16.0) % Plt Count 399 (160-400) X10*3/uL MPV 8.4 L (9.4-12.4) fL Immature Gran % (Auto) 0.3 (0.0-0.4) % Neut % (Auto) 59.7 (45-73) % Lymph % (Auto) 25.6 (20-40) % [place] % (Auto) 13.3 H (2-11) % Eos % (Auto) 0.2 (0-4) % Baso % (Auto) 0.9 (0-2) % Lymph # (Auto) 2.2 (1.2-4.9) X10*3/uL [place] # (Auto) 1.2 (0.1-1.2) X10*3/uL Eos # (Auto) 0.0 (0.0-0.4) X10*3/uL Baso # (Auto) 0.1 (0.0-0.2) X10*3/uL Abs Immat Gran (auto) 0.03 (0.00-0.03) X10*3/uL Absolute Neuts (auto) 5.2 (2.0-8.3) x10*3/uL Absolute Nucleated RBC 0.000 (0.0-0.012) X10*3/uL Nucleated RBC % (auto) 0.0 (0.0-0.2) /100WBC Sodium 134 L (135-145) mmol/L Potassium 3.8 (3.3-5.1) mmol/L Chloride 95 L (96-108) mmol/L Carbon Dioxide 24 (22-29) mmol/L Anion Gap 19 (12-20) BUN 9 (9-16) mg/dL Creatinine 0.65 (0.5-1.4) mg/dL Estim Creat Clear Calc 224.0 Estimated GFR > 60 Random Glucose 93 (60-115) mg/dL Calcium 9.9 (8.4-10.2) mg/dL Magnesium 2.0 (1.6-2.6) mg/dL Total Bilirubin 0.9 (0.0-1.0) mg/dL AST 61 H (5-37) U/L ALT 118 H (0-40) U/L Alkaline Phosphatase 63 (39-117) U/L Troponin I High Sens < 3.5 (<3.5-35.0) ng/L Total Protein 7.5 (6.5-8.0) g/dL Albumin 4.7 (3.5-5.0) g/dL Ethyl Alcohol mg/dL 08/24/21 Range/Units 22:47 WBC (4.8-10.8) X10*3/uL RBC (4.60-5.80) X10*6/uL Hgb (14.0-18.0) g/dl Hct (42.0-52.0) % MCV (80.0-98.0) fL MCH (27.0-33.0) pg MCHC (31.0-36.0) g/dl RDW (11.0-16.0) % Plt Count (160-400) X10*3/uL MPV (9.4-12.4) fL Immature Gran % (Auto) (0.0-0.4) % Neut % (Auto) (45-73) % Lymph % (Auto) (20-40) % [place] % (Auto) (2-11) % Eos % (Auto) (0-4) % Baso % (Auto) (0-2) % Lymph # (Auto) (1.2-4.9) X10*3/uL [place] # (Auto) (0.1-1.2) X10*3/uL Eos # (Auto) (0.0-0.4) X10*3/uL Baso # (Auto) (0.0-0.2) X10*3/uL Abs Immat Gran (auto) (0.00-0.03) X10*3/uL Absolute Neuts (auto) (2.0-8.3) x10*3/uL Absolute Nucleated RBC (0.0-0.012) X10*3/uL Nucleated RBC % (auto) (0.0-0.2) /100WBC Sodium (135-145) mmol/L Potassium (3.3-5.1) mmol/L Chloride (96-108) mmol/L Carbon Dioxide (22-29) mmol/L Anion Gap (12-20) BUN (9-16) mg/dL Creatinine (0.5-1.4) mg/dL Estim Creat Clear Calc Estimated GFR Random Glucose (60-115) mg/dL Calcium (8.4-10.2) mg/dL Magnesium (1.6-2.6) mg/dL Total Bilirubin (0.0-1.0) mg/dL AST (5-37) U/L ALT (0-40) U/L Alkaline Phosphatase (39-117) U/L Troponin I High Sens (<3.5-35.0) ng/L Total Protein (6.5-8.0) g/dL Albumin (3.5-5.0) g/dL Ethyl Alcohol 26 mg/dL ECG Data ECG #1: Attestation: I personally reviewed and interpreted this ECG as follows: ECG interpretation date: 08/24/21 ECG interpretation time: 23:54 Prior ECG tracings: available for review Interpretation: Ventricular rate of 112, CO normal, QRS normal, QT/QTC normal. EKG with sinus tachycardia, no ST elevations or inversions concerning for ischemia. No si gnificant changes when compared to EKG of July 2021 Critical Care Time Critical Care Time Critical Care Time: No Discharge Plan Discharge Clinical Impression: Alcohol dependence, Alcohol withdrawal Patient Disposition: Home, Self-Care Instructions: Alcohol Withdrawal (ED), Alcohol Dependence (ED) Additional Instructions: Take your medications as prescribed. If you were prescribed antibiotics today, it is important that you take your medication to their entirety, do not skip any doses, do not finish them early. Follow-up with your primary care provider this week. Return to the emergency department with new or worsening symptoms. Such as fevers, chills, chest pain, shortness of breath, nausea, vomiting, dizziness, headache, vision changes, lethargy In case of emergency call 911 Please do not drink while taking Librium, this can cause respiratory depression . Prescriptions: New chlordiazepoxide HCl 25 mg capsule 25 mg PO Q6H PRN (Reason: alcohol withdrawal) Qty: 14 0RF No Action lisinopril 20 mg tablet 20 mg PO DAILY Qty: 90 8RF hydrochlorothiazide 25 mg tablet 25 mg PO DAILY Qty: 90 8RF omeprazole 20 mg capsule,delayed release(DR/EC) 20 mg PO DAILY 90 Days Qty: 90 8RF alprazolam 1 mg tablet 1 mg PO TID PRN (Reason: anxiety) Qty: 90 5RF ondansetron 4 mg tablet,disintegrating 4 mg PO Q8H PRN (Reason: nausea and vomiting) Qty: 20 0RF lorazepam [Ativan] 1 mg tablet 1 mg PO TID PRN (Reason: alcohol withdrawal) Qty: 6 0RF albuterol sulfate 90 mcg/actuation HFA aerosol inhaler 2 puff PO Q6H PRN folic acid 1 mg tablet 1 mg PO DAILY Qty: 30 1RF thiamine HCl (vitamin B1) 100 mg tablet 100 mg PO DAILY Qty: 30 1RF naltrexone 50 mg tablet 50 mg PO DAILY Qty: 30 2RF Referrals: [facility] [Provider Group] - 1 day Doni Cazares MD [Primary Care Provider] - 2 days Hansa Avelar CNP [Nurse Practitioner] - 1 day Stand Alone Forms: Work/School Release
[2021-08-24] MEDS: LORazepam 2 MG/ML VIAL 1 MG IVPUSH (23:57)
[2021-08-25] MEDS: 0.9 % Sodium Chloride 1,000 ML 999 ML IV ×2 (00:01→01:09)
[2021-08-25 00:29] VITALS: BP 135/88; PULSE 106; RESP 16; O2SAT 97
[2021-08-25] MEDS: LORazepam 2 MG/ML VIAL 1 MG IVPUSH (01:08)
[2021-08-25 02:28] VITALS: BP 135/72; PULSE 109; RESP 18; O2SAT 96
== END 2021-08-25 03:32 | disposition home or self-care (01) ==
PROVIDERS: Physician Assistant; Emergency Provider Internal Medicine; PCP Internal Medicine
DX: F10.239 Alcohol dependence with withdrawal, unspecified (principal); Y90.1 Blood alcohol level of 20-39 mg/100 ml; R06.02 Shortness of breath; R00.2 Palpitations; Z79.899 Other long term (current) drug therapy
CPT/HCPCS: 36415; 80053; 82077; 83735; 84484; 85025; 93005; 96361; 96374; 96376; 99284; J2060

== ENCOUNTER 2021-09-02 15:40 | Outpatient (REF) | payer OTHER, SELFPAY ==
[2021-09-08 07:51] LABS: Codeine, Ur 318
[2021-09-08 07:52] LABS: Hydrocodone, Ur NEGATIVE; Hydromorphone, Ur NEGATIVE; Morphine, Ur NEGATIVE; Norhydrocodone, Ur NEGATIVE; Noroxycodone, Ur NEGATIVE; Oxycodone, Ur NEGATIVE; Oxymorphone, Ur NEGATIVE
== END 2021-09-02 15:41 | disposition home or self-care (01) ==
LOC: HO.LAB 15:40
PROVIDERS: Visit Provider Nurse Practitioner Psychiatric/Mental Health
DX: F10.20 Alcohol dependence, uncomplicated (principal); Z51.81 Encounter for therapeutic drug level monitoring
CPT/HCPCS: 80305; 80364; 80365; 99212

== ENCOUNTER 2021-09-23 21:44 | Emergency (ER) | payer OTHER, SELFPAY ==
--- NOTE | 2021-09-23 | ECG_ITS ---
Test Reason : CHEST PAIN Blood Pressure : / mmHG Vent. Rate : 087 BPM Atrial Rate : 087 BPM P-R Int : 150 ms QRS Dur : 084 ms QT Int : 350 ms P-R-T Axes : 038 012 030 degrees QTc Int : 421 ms Normal sinus rhythm Normal ECG When compared with ECG of 24-AUG-2021 22:34, No significant change was found Referred By: Generic ED Physician Electronically Signed By:Dilip Reyes
[2021-09-23 22:01] VITALS: BP 155/100; PULSE 103; RESP 15; TEMP 37.3; O2SAT 96; BMI 36.2
[2021-09-23 22:15] LABS: MANUAL DIFF FLAG NO
[2021-09-23 22:33] LABS: Basophils Absolute Auto 0.1 X10*3/uL (0.0-0.2); Basophils Percent Auto 0.9 % (0-2); Eosinophils Absolute Auto 0.1 X10*3/uL (0.0-0.4); Eosinophils Percent Auto 1.6 % (0-4); Hematocrit 48.9 % (42.0-52.0); Hemoglobin 16.5 g/dl (14.0-18.0); Imm Gran Abs Auto 0.02 X10*3/uL (0.00-0.03); Imm Gran Pct Auto 0.3 % (0.0-0.4); Lymphocytes Percent Auto 30.6 % (20-40); Mean Corpuscular HGB Conc 33.7 g/dl (31.0-36.0); Mean Corpuscular Hemoglobin 32.2 pg (27.0-33.0); Mean Corpuscular Volume 95.3 fL (80.0-98.0); Mean Platelet Volume 8.7 fL (9.4-12.4); Monocytes Absolute Auto 0.7 X10*3/uL (0.1-1.2); Monocytes Percent Auto 11.1 % (2-11); Neutrophils Absolute Auto 3.5 x10*3/uL (2.0-8.3); Neutrophils Percent Auto 55.5 % (45-73); Platelet Count 328 X10*3/uL (160-400); Red Blood Count 5.13 X10*6/uL (4.60-5.80); Red Cell Distribution Width 13.5 % (11.0-16.0); White Blood Count 6.4 X10*3/uL (4.8-10.8)
[2021-09-23 22:34] LABS: Alanine Aminotransferase 107 U/L (0-40); Albumin Level 4.4 g/dL (3.5-5.0); Alkaline Phosphatase 59 U/L (39-117); Anion Gap 12 (12-20); Aspartate Amino Transferase 68 U/L (5-37); Bilirubin Total 0.9 mg/dL (0.0-1.0); Blood Urea Nitrogen 12 mg/dL (9-16); Calcium 9.5 mg/dL (8.4-10.2); Carbon Dioxide 27 mmol/L (22-29); Chloride 105 mmol/L (96-108); Creatinine Clr Calc Pharmacy 175.1; Estimated Glomerular Filt Rate > 60; Glucose Random 85 mg/dL (60-115); Potassium 4.8 mmol/L (3.3-5.1); Sodium 139 mmol/L (135-145); Total Protein 7.1 g/dL (6.5-8.0)
[2021-09-23 22:38] LABS: Troponin-I High Sensitivity < 3.5 ng/L (<3.5-35.0)
[2021-09-23 22:57] LABS: Ethanol < 10 mg/dL; Magnesium 1.9 mg/dL (1.6-2.6)
[2021-09-23 23:39] VITALS: BP 127/85; PULSE 87; RESP 18; TEMP 36.7; O2SAT 96
--- NOTE | 2021-09-23 23:39 | ED_ITS ---
HPI - Chest Pain General Chief Complaint: Chest Pain Stated Complaint: diff breathing, chest tightness Time Seen by Provider: 09/23/21 22:27 Related Data Home Medications Medication Instructions Recorded Confirmed albuterol sulfate 90 mcg/actuation 2 puff PO Q6H PRN 03/11/20 03/11/20 aerosol inhaler Previous Rx's Medication Instructions Recorded lisinopril 20 mg tablet 20 mg PO DAILY #90 tabs 12/25/19 hydrochlorothiazide 25 mg tablet 25 mg PO DAILY #90 tabs 02/24/20 omeprazole 20 mg capsule,delayed 20 mg PO DAILY 90 days #90 caps 04/26/21 release folic acid 1 mg tablet 1 mg PO DAILY #30 tabs 05/20/21 thiamine HCl (vitamin B1) 100 mg 100 mg PO DAILY #30 tabs 05/20/21 tablet alprazolam 1 mg tablet 1 mg PO TID PRN anxiety #90 tabs 06/17/21 lorazepam 1 mg tablet (Ativan) 1 mg PO TID PRN alcohol withdrawal 06/30/21 #6 tabs ondansetron 4 mg disintegrating 4 mg PO Q8H PRN nausea and 06/30/21 tablet vomiting #20 tabs naltrexone 50 mg tablet 50 mg PO DAILY #30 tabs 08/05/21 chlordiazepoxide HCl 25 mg capsule 25 mg PO Q6H PRN alcohol 09/10/21 withdrawal #7 caps Allergies Allergy/AdvReac Type Severity Reaction Status Date / Time No Known Allergies Allergy Verified 07/29/21 23:54 [No Known Allergies*] [facility] Past Medical History Medical History Hypertension Surgical History No history of previous surgery Family History Family History Mother No problems noted. Father No problems noted. Social History Social History Alcohol intake: current Alcohol intake frequency: former alcohol drinker Alcohol type: hard liquor Patient Tobacco Use Status: Never used Tobacco Substance Use Type: Marijuana Physical Exam Vital Signs: Vital Signs: Last Vital Signs Temp 98.0 F 09/23/21 23:39 Pulse 87 09/23/21 23:39 Resp 18 09/23/21 23:39 BP 127/85 09/23/21 23:39 Pulse Ox 96 09/23/21 23:39 O2 Del Method 09/23/21 23:39 BMI result Body Mass Index 36.2 MDM - Chest Pain Lab Data Result diagrams: 09/23/21 22:10 09/23/21 22:10 Labs: Lab Results 09/23/21 09/23/21 09/23/21 Range/Units 22:10 22:10 22:10 WBC 6.4 (4.8-10.8) X10*3/uL RBC 5.13 (4.60-5.80) X10*6/uL Hgb 16.5 (14.0-18.0) g/dl Hct 48.9 (42.0-52.0) % MCV 95.3 (80.0-98.0) fL MCH 32.2 (27.0-33.0) pg MCHC 33.7 (31.0-36.0) g/dl RDW 13.5 (11.0-16.0) % Plt Count 328 (160-400) X10*3/uL MPV 8.7 L (9.4-12.4) fL Immature Gran % (Auto) 0.3 (0.0-0.4) % Neut % (Auto) 55.5 (45-73) % Lymph % (Auto) 30.6 (20-40) % [place] % (Auto) 11.1 H (2-11) % Eos % (Auto) 1.6 (0-4) % Baso % (Auto) 0.9 (0-2) % Lymph # (Auto) 2.0 (1.2-4.9) X10*3/uL [place] # (Auto) 0.7 (0.1-1.2) X10*3/uL Eos # (Auto) 0.1 (0.0-0.4) X10*3/uL Baso # (Auto) 0.1 (0.0-0.2) X10*3/uL Abs Immat Gran (auto) 0.02 (0.00-0.03) X10*3/uL Absolute Neuts (auto) 3.5 (2.0-8.3) x10*3/uL Absolute Nucleated RBC 0.000 (0.0-0.012) X10*3/uL Nucleated RBC % (auto) 0.0 (0.0-0.2) /100WBC Sodium 139 (135-145) mmol/L Potassium 4.8 D (3.3-5.1) mmol/L Chloride 105 (96-108) mmol/L Carbon Dioxide 27 (22-29) mmol/L Anion Gap 12 (12-20) BUN 12 (9-16) mg/dL Creatinine 0.82 (0.5-1.4) mg/dL Estim Creat Clear Calc 175.1 Estimated GFR > 60 Random Glucose 85 (60-115) mg/dL Calcium 9.5 (8.4-10.2) mg/dL Magnesium 1.9 (1.6-2.6) mg/dL Total Bilirubin 0.9 (0.0-1.0) mg/dL AST 68 H (5-37) U/L ALT 107 H (0-40) U/L Alkaline Phosphatase 59 (39-117) U/L Troponin I High Sens < 3.5 (<3.5-35.0) ng/L Total Protein 7.1 (6.5-8.0) g/dL Albumin 4.4 (3.5-5.0) g/dL Ethyl Alcohol < 10 mg/dL Discharge Plan Discharge Prescriptions: No Action lisinopril 20 mg tablet 20 mg PO DAILY Qty: 90 8RF hydrochlorothiazide 25 mg tablet 25 mg PO DAILY Qty: 90 8RF omeprazole 20 mg capsule,delayed release(DR/EC) 20 mg PO DAILY 90 Days Qty: 90 8RF alprazolam 1 mg tablet 1 mg PO TID PRN (Reason: anxiety) Qty: 90 5RF chlordiazepoxide HCl 25 mg capsule 25 mg PO Q6H PRN (Reason: alcohol withdrawal) Qty: 7 0RF ondansetron 4 mg tablet,disintegrating 4 mg PO Q8H PRN (Reason: nausea and vomiting) Qty: 20 0RF lorazepam [Ativan] 1 mg tablet 1 mg PO TID PRN (Reason: alcohol withdrawal) Qty: 6 0RF albuterol sulfate 90 mcg/actuation HFA aerosol inhaler 2 puff PO Q6H PRN folic acid 1 mg tablet 1 mg PO DAILY Qty: 30 1RF thiamine HCl (vitamin B1) 100 mg tablet 100 mg PO DAILY Qty: 30 1RF naltrexone 50 mg tablet 50 mg PO DAILY Qty: 30 2RF
--- NOTE | 2021-09-24 00:15 | ED.GENADULT ---
HPI - General Adult General Chief complaint: Chest Pain Stated complaint: diff breathing, chest tightness Time Seen by Provider: 09/23/21 22:27 Source: patient Mode of arrival: ambulatory Limitations: no limitations History of Present Illness HPI narrative: Patient with history of alcohol abuse last drink was about 5 days ago feels patient is in withdrawal with body symptoms try to take Librium and Xanax at home still feel congested with body aches patient had COVID in 07/25 no fever no cough no runny nose Related Data Home Medications Medication Instructions Recorded Confirmed albuterol sulfate 90 mcg/actuation 2 puff PO Q6H PRN 03/11/20 03/11/20 aerosol inhaler Previous Rx's Medication Instructions Recorded lisinopril 20 mg tablet 20 mg PO DAILY #90 tabs 12/25/19 hydrochlorothiazide 25 mg tablet 25 mg PO DAILY #90 tabs 02/24/20 omeprazole 20 mg capsule,delayed 20 mg PO DAILY 90 days #90 caps 04/26/21 release folic acid 1 mg tablet 1 mg PO DAILY #30 tabs 05/20/21 thiamine HCl (vitamin B1) 100 mg 100 mg PO DAILY #30 tabs 05/20/21 tablet alprazolam 1 mg tablet 1 mg PO TID PRN anxiety #90 tabs 06/17/21 lorazepam 1 mg tablet (Ativan) 1 mg PO TID PRN alcohol withdrawal 06/30/21 #6 tabs ondansetron 4 mg disintegrating 4 mg PO Q8H PRN nausea and 06/30/21 tablet vomiting #20 tabs naltrexone 50 mg tablet 50 mg PO DAILY #30 tabs 08/05/21 chlordiazepoxide HCl 25 mg capsule 25 mg PO Q6H PRN alcohol 09/10/21 withdrawal #7 caps chlordiazepoxide HCl 25 mg capsule 25 mg PO Q6-8H PRN alcohol 09/24/21 withdrawal #7 caps Allergies Allergy/AdvReac Type Severity Reaction Status Date / Time No Known Allergies Allergy Verified 07/29/21 23:54 [No Known Allergies*] Review of Systems Review of Systems: Yes all other systems are reviewed and are negative [facility] Past Medical History Medical History Alcohol dependence Alcoholic hepatitis Anxiety Depression Hypertension Surgical History No history of previous surgery Family History Family History Mother No problems noted. Father No problems noted. Social History Social History Alcohol intake: current Alcohol intake frequency: former alcohol drinker Alcohol type: hard liquor Patient Tobacco Use Status: Never used Tobacco Substance Use Type: Marijuana Advance Directives: No Advance Directives Information Provided: No Physical Exam ED Vital Signs: Vital Signs - 24 hr 09/23/21 22:01 09/23/21 23:39 Temperature 99.2 F 98.0 F Pulse Rate 103 H 87 Respiratory Rate 15 18 Blood Pressure 155/100 H 127/85 Pulse Oximetry 96 96 Oxygen Delivery Method Room Air Room Air BMI result Body Mass Index 36.2 Appearance: Alert. Oriented X3. No acute distress. Eyes: PERRLA, No Nystagmus ENT: Pharynx normal. Oral Mucosa moist Neck: Normal inspection. Neck supple. CVS: Normal heart rate and rhythm. Pulses normal. Respiratory: No respiratory distress. Equal air entry bilateral, no wheezing/rales/rhonchi Abdomen: Soft and nontender. Bowel sounds are present, no mass palpable, no CVA tenderness Skin: Skin warm and dry. Normal skin color. Normal skin turgor. Extremities: No lower extremity edema. No calf tenderness Neuro: Oriented X 3. No motor deficit. No sensory deficit.No cerebellar signs , cranial nerves II-XII intact Medical Decision Making Lab Data Lab results reviewed: Yes I reviewed the patient's lab results. Result diagrams: 09/23/21 22:10 09/23/21 22:10 Labs: Lab Results 09/23/21 09/23/21 09/23/21 Range/Units 22:10 22:10 22:10 WBC 6.4 (4.8-10.8) X10*3/uL RBC 5.13 (4.60-5.80) X10*6/uL Hgb 16.5 (14.0-18.0) g/dl Hct 48.9 (42.0-52.0) % MCV 95.3 (80.0-98.0) fL MCH 32.2 (27.0-33.0) pg MCHC 33.7 (31.0-36.0) g/dl RDW 13.5 (11.0-16.0) % Plt Count 328 (160-400) X10*3/uL MPV 8.7 L (9.4-12.4) fL Immature Gran % (Auto) 0.3 (0.0-0.4) % Neut % (Auto) 55.5 (45-73) % Lymph % (Auto) 30.6 (20-40) % [place] % (Auto) 11.1 H (2-11) % Eos % (Auto) 1.6 (0-4) % Baso % (Auto) 0.9 (0-2) % Lymph # (Auto) 2.0 (1.2-4.9) X10*3/uL [place] # (Auto) 0.7 (0.1-1.2) X10*3/uL Eos # (Auto) 0.1 (0.0-0.4) X10*3/uL Baso # (Auto) 0.1 (0.0-0.2) X10*3/uL Abs Immat Gran (auto) 0.02 (0.00-0.03) X10*3/uL Absolute Neuts (auto) 3.5 (2.0-8.3) x10*3/uL Absolute Nucleated RBC 0.000 (0.0-0.012) X10*3/uL Nucleated RBC % (auto) 0.0 (0.0-0.2) /100WBC Sodium 139 (135-145) mmol/L Potassium 4.8 D (3.3-5.1) mmol/L Chloride 105 (96-108) mmol/L Carbon Dioxide 27 (22-29) mmol/L Anion Gap 12 (12-20) BUN 12 (9-16) mg/dL Creatinine 0.82 (0.5-1.4) mg/dL Estim Creat Clear Calc 175.1 Estimated GFR > 60 Random Glucose 85 (60-115) mg/dL Calcium 9.5 (8.4-10.2) mg/dL Magnesium 1.9 (1.6-2.6) mg/dL Total Bilirubin 0.9 (0.0-1.0) mg/dL AST 68 H (5-37) U/L ALT 107 H (0-40) U/L Alkaline Phosphatase 59 (39-117) U/L Troponin I High Sens < 3.5 (<3.5-35.0) ng/L Total Protein 7.1 (6.5-8.0) g/dL Albumin 4.4 (3.5-5.0) g/dL Ethyl Alcohol < 10 mg/dL COVID-19 (DUSTIN) (Negative) COVID-19 Clin Com 09/24/21 Range/Units 00:35 WBC (4.8-10.8) X10*3/uL RBC (4.60-5.80) X10*6/uL Hgb (14.0-18.0) g/dl Hct (42.0-52.0) % MCV (80.0-98.0) fL MCH (27.0-33.0) pg MCHC (31.0-36.0) g/dl RDW (11.0-16.0) % Plt Count (160-400) X10*3/uL MPV (9.4-12.4) fL Immature Gran % (Auto) (0.0-0.4) % Neut % (Auto) (45-73) % Lymph % (Auto) (20-40) % [place] % (Auto) (2-11) % Eos % (Auto) (0-4) % Baso % (Auto) (0-2) % Lymph # (Auto) (1.2-4.9) X10*3/uL [place] # (Auto) (0.1-1.2) X10*3/uL Eos # (Auto) (0.0-0.4) X10*3/uL Baso # (Auto) (0.0-0.2) X10*3/uL Abs Immat Gran (auto) (0.00-0.03) X10*3/uL Absolute Neuts (auto) (2.0-8.3) x10*3/uL Absolute Nucleated RBC (0.0-0.012) X10*3/uL Nucleated RBC % (auto) (0.0-0.2) /100WBC Sodium (135-145) mmol/L Potassium (3.3-5.1) mmol/L Chloride (96-108) mmol/L Carbon Dioxide (22-29) mmol/L Anion Gap (12-20) BUN (9-16) mg/dL Creatinine (0.5-1.4) mg/dL Estim Creat Clear Calc Estimated GFR Random Glucose (60-115) mg/dL Calcium (8.4-10.2) mg/dL Magnesium (1.6-2.6) mg/dL Total Bilirubin (0.0-1.0) mg/dL AST (5-37) U/L ALT (0-40) U/L Alkaline Phosphatase (39-117) U/L Troponin I High Sens (<3.5-35.0) ng/L Total Protein (6.5-8.0) g/dL Albumin (3.5-5.0) g/dL Ethyl Alcohol mg/dL COVID-19 (DUSTIN) Negative (Negative) COVID-19 Clin Com See Note Discharge Plan Discharge Clinical Impression: Alcohol withdrawal syndrome Patient Disposition: Home, Self-Care Instructions: Alcohol Withdrawal (ED) Additional Instructions: Stop drinking alcohol Librium in tapering dose as advised Do not take alprazolam while taking Librium Prescriptions: New chlordiazepoxide HCl 25 mg capsule 25 mg PO Q6-8H PRN (Reason: alcohol withdrawal) Qty: 7 0RF No Action lisinopril 20 mg tablet 20 mg PO DAILY Qty: 90 8RF hydrochlorothiazide 25 mg tablet 25 mg PO DAILY Qty: 90 8RF omeprazole 20 mg capsule,delayed release(DR/EC) 20 mg PO DAILY 90 Days Qty: 90 8RF alprazolam 1 mg tablet 1 mg PO TID PRN (Reason: anxiety) Qty: 90 5RF chlordiazepoxide HCl 25 mg capsule 25 mg PO Q6H PRN (Reason: alcohol withdrawal) Qty: 7 0RF ondansetron 4 mg tablet,disintegrating 4 mg PO Q8H PRN (Reason: nausea and vomiting) Qty: 20 0RF lorazepam [Ativan] 1 mg tablet 1 mg PO TID PRN (Reason: alcohol withdrawal) Qty: 6 0RF albuterol sulfate 90 mcg/actuation HFA aerosol inhaler 2 puff PO Q6H PRN folic acid 1 mg tablet 1 mg PO DAILY Qty: 30 1RF thiamine HCl (vitamin B1) 100 mg tablet 100 mg PO DAILY Qty: 30 1RF naltrexone 50 mg tablet 50 mg PO DAILY Qty: 30 2RF Interventions: ED Discharge Assessment Last Done: 09/24/21 01:00 Discharge Date/Time: 09/24/21 01:01
[2021-09-24 00:54] LABS: COVID-19 Test Negative (Negative)
[2021-09-24] MEDS: chlordiazePOXIDE HCl 25 MG CAPSULE PO (00:58)
== END 2021-09-24 01:01 | disposition home or self-care (01) ==
PROVIDERS: Emergency Medicine; Emergency Provider Internal Medicine; PCP Internal Medicine
DX: F10.230 Alcohol dependence with withdrawal, uncomplicated (principal); Y90.0 Blood alcohol level of less than 20 mg/100 ml; I10 Essential (primary) hypertension; F41.9 Anxiety disorder, unspecified; F32.A Depression, unspecified; F12.90 Cannabis use, unspecified, uncomplicated; Z20.822 Contact with and (suspected) exposure to COVID-19; Z79.899 Other long term (current) drug therapy
CPT/HCPCS: 36415; 80053; 82077; 83735; 84484; 85025; 87635; 93005; 99283

== ENCOUNTER 2021-11-02 00:11 | Emergency (ER) | payer OTHER, SELFPAY ==
--- NOTE | 2021-11-02 | ECG_ITS ---
Test Reason : TACHYCARDIA Blood Pressure : / mmHG Vent. Rate : 103 BPM Atrial Rate : 103 BPM P-R Int : 140 ms QRS Dur : 086 ms QT Int : 314 ms P-R-T Axes : 055 016 026 degrees QTc Int : 411 ms Sinus tachycardia Otherwise normal ECG When compared with ECG of 23-SEP-2021 21:46, Heart rate has increased Referred By: Generic ED Physician Electronically Signed By:EDD JACINTO
[2021-11-02 01:10] VITALS: BP 145/101; PULSE 121; RESP 20; TEMP 36.2; O2SAT 96; BMI 39.0
--- NOTE | 2021-11-02 01:37 | ED_ITS ---
HPI - General Adult General Chief complaint: ETOH/Substance Use Stated complaint: Alcohol withdrawal/Dehydrated Time Seen by Provider: 11/02/21 01:32 Source: patient and family Limitations: no limitations History of Present Illness HPI narrative: This is a 22-year-old male with history of alcohol abuse, anxiety, who has been drinking a lot in the last week, has had issues with his girlfriend. The patient has been drinking about a pt of gin a day mixed with seltzer water. His last drink was about 26 hours ago according to his mother. He did have vomiting yesterday but denies any nausea currently. He denies any chest pain or short ness of breath, denies abdominal pain. He has had treatment in the ED for alcohol withdrawal symptoms previously. The patient is scheduled to start a detox program and [place] in the next week. Related Data Home Medications Medication Instructions Recorded Confirmed albuterol sulfate 90 mcg/actuation 2 puff PO Q6H PRN 03/11/20 10/04/21 aerosol inhaler Previous Rx's Medication Instructions Recorded hydrochlorothiazide 25 mg tablet 25 mg PO DAILY #90 tabs 02/24/20 omeprazole 20 mg capsule,delayed 20 mg PO DAILY 90 days #90 caps 04/26/21 release alprazolam 1 mg tablet 1 mg PO TID PRN anxiety #90 tabs 06/17/21 ondansetron 4 mg disintegrating 4 mg PO Q8H PRN nausea and 06/30/21 tablet vomiting #20 tabs naltrexone 50 mg tablet 50 mg PO DAILY #30 tabs 08/05/21 chlordiazepoxide HCl 25 mg capsule 25 mg PO Q6H PRN alcohol 09/10/21 withdrawal #7 caps chlordiazepoxide HCl 25 mg capsule 25 mg PO Q6-8H PRN alcohol 09/24/21 withdrawal #7 caps folic acid 1 mg tablet 1 mg PO DAILY #30 tabs 09/24/21 lisinopril 20 mg tablet 20 mg PO DAILY #90 tabs 09/24/21 lorazepam 1 mg tablet (Ativan) 1 mg PO TID PRN alcohol withdrawal 09/24/21 #6 tabs thiamine HCl (vitamin B1) 100 mg 100 mg PO DAILY #30 tabs 09/24/21 tablet lorazepam 1 mg tablet 1 mg PO Q6H PRN alcohol withdrawal 11/02/21 #15 tabs Allergies Allergy/AdvReac Type Severity Reaction Status Date / Time No Known Allergies Allergy Verified 10/04/21 10:10 [No Known Allergies*] Review of Systems Review of Systems: Yes all other systems are reviewed and are negative Constitutional: Constitutional: Reports as per HPI and Denies fever(s) Eyes: Eyes: Reports as per HPI and Reports no additional eye complaints ENT: Reports system reviewed and no additional complaints, except as documented, Reports as per HPI, Denies nasal congestion, Denies nasal discharge and Denies sore throat Cardiovascular: Cardiovascular: Reports as per HPI, Denies chest pain and Denies dyspnea Respiratory: Respiratory: Reports as per HPI, Denies cough and Denies dyspnea Gastrointestinal: Gastrointestinal: Reports as per HPI, Denies abdominal pain, Denies diarrhea, Reports nausea and Reports vomiting Musculoskeletal: Musculoskeletal: Reports no additional musculoskeletal complaints and Denies numbness Integumentary/Breasts: Skin/Breast: Reports as per HPI and Denies rash Neurologic: Reports as per HPI, Denies focal weakness and Denies numbness Psychiatric: Psychiatric: Reports no additional psychiatric complaints and Reports as per HPI Endocrine: Endocrine: Reports no additional endocrine complaints and Reports as per HPI Hematologic/Lymphatic: Hematologic/Lymphatic: Reports no additional suraj tologic/lymphatic complaints, Reports as per HPI and Reports other (No peripheral edema) [facility] Past Medical History Medical History Alcohol dependence Alcoholic hepatitis Anxiety Depression Hypertension Surgical History No history of previous surgery Family History Family History Mother No problems noted. Father No problems noted. Social History Social History Housing: Condominium Alcohol intake: current Alcohol intake frequency: former alcohol drinker Alcohol type: hard liquor Patient Tobacco Use Status: Never used Tobacco e-Cigarette/Vaping Use: Never Used Second Hand Smoke Exposure: No Substance Use Type: Marijuana Advance Directives: No Advance Directives Information Provided: No service: No Current occupational status: employed Cognitive needs: No Hearing needs: No Vision needs: No Physical Exam ED Vital Signs: Vital Signs - 24 hr 11/02/21 01:10 11/02/21 02:00 Temperature 97.2 F 99.0 F Pulse Rate 121 H 107 H Respiratory Rate 20 16 Blood Pressure 145/101 H 146/93 H Pulse Oximetry 96 95 Oxygen Delivery Method Room Air Room Air BMI result Body Mass Index 39.0 Medical Decision Making MDM Narrative Medical decision making narrative: Patient with apparent mild alcohol withdrawal symptoms. Patient was given Valium 5 mg IV with improvement, appeared relaxed. Patient has arranged to E started the socks program will prescribe lorazepam to use p.r.n. anxiety/withdrawal symptoms Lab Data Lab results reviewed: Yes I reviewed the patient's lab results. Result diagrams: 11/02/21 01:24 11/02/21 01:24 Labs: Lab Results 11/02/21 11/02/21 11/02/21 Range/Units 01:24 01:24 01:24 WBC 8.4 (4.8-10.8) X10*3/uL RBC 5.12 (4.60-5.80) X10*6/uL Hgb 16.4 (14.0-18.0) g/dl Hct 47.4 (42.0-52.0) % MCV 92.6 (80.0-98.0) fL MCH 32.0 (27.0-33.0) pg MCHC 34.6 (31.0-36.0) g/dl RDW 12.9 (11.0-16.0) % Plt Count 407 H (160-400) X10*3/uL MPV 8.4 L (9.4-12.4) fL Immature Gran % (Auto) 0.4 (0.0-0.4) % Neut % (Auto) 68.1 (45-73) % Lymph % (Auto) 18.2 L (20-40) % [place] % (Auto) 12.1 H (2-11) % Eos % (Auto) 0.1 (0-4) % Baso % (Auto) 1.1 (0-2) % Lymph # (Auto) 1.5 (1.2-4.9) X10*3/uL [place] # (Auto) 1.0 (0.1-1.2) X10*3/uL Eos # (Auto) 0.0 (0.0-0.4) X10*3/uL Baso # (Auto) 0.1 (0.0-0.2) X10*3/uL Abs Immat Gran (auto) 0.03 (0.00-0.03) X10*3/uL Absolute Neuts (auto) 5.7 (2.0-8.3) x10*3/uL Absolute Nucleated RBC 0.000 (0.0-0.012) X10*3/uL Nucleated RBC % (auto) 0.0 (0.0-0.2) /100WBC Sodium 134 L (135-145) mmol/L Potassium 3.6 D (3.3-5.1) mmol/L Chloride 95 L (96-108) mmol/L Carbon Dioxide 25 (22-29) mmol/L Anion Gap 18 (12-20) BUN 9 (9-16) mg/dL Creatinine 0.77 (0.5-1.4) mg/dL Estim Creat Clear Calc 193.9 Estimated GFR > 60 Random Glucose 99 (60-115) mg/dL Calcium 9.6 (8.4-10.2) mg/dL Magnesium 1.6 (1.6-2.6) mg/dL Total Bilirubin 1.4 H (0.0-1.0) mg/dL AST 60 H (5-37) U/L ALT 95 H (0-40) U/L Alkaline Phosphatase 56 (39-117) U/L Total Protein 7.1 (6.5-8.0) g/dL Albumin 4.2 (3.5-5.0) g/dL Urine Opiates Screen Not Detected (Not Detect) Urine Fentanyl Screen Not Detected (Not Detect) Ur Barbiturates Screen POSITIVE H (Not Detect) Ur Phencyclidine Scrn Not Detected (Not Detect) Ur Amphetamines Screen Not Detected (Not Detect) U Benzodiazepines Scrn Not Detected (Not Detect) Urine Cocaine Screen Not Detected (Not Detect) U Marijuana (THC) Screen Not Detected (Not Detect) Ethyl Alcohol < 10 mg/dL Discharge Plan Discharge Clinical Impression: Anxiety, Alcohol use disorder, moderate, dependence Patient Disposition: Home, Self-Care Instructions: Alcohol Withdrawal (ED), Anxiety (ED), Alcohol Use Disorder (ED) Additional Instructions: Use lorazepam as prescribed as needed for anxiety or alcohol withdrawal symptoms such as feeling shaky. Follow-up with her primary care physician. Also follow- up in detox as scheduled return for any new or worsened symptoms Prescriptions: New lorazepam 1 mg tablet 1 mg PO Q6H PRN (Reason: alcohol withdrawal) Qty: 15 0RF No Action hydrochlorothiazide 25 mg tablet 25 mg PO DAILY Qty: 90 8RF omeprazole 20 mg capsule,delayed release(DR/EC) 20 mg PO DAILY 90 Days Qty: 90 8RF alprazolam 1 mg tablet 1 mg PO TID PRN (Reason: anxiety) Qty: 90 5RF chlordiazepoxide HCl 25 mg capsule 25 mg PO Q6H PRN (Reason: alcohol withdrawal) Qty: 7 0RF thiamine HCl (vitamin B1) 100 mg tablet 100 mg PO DAILY Qty: 30 1RF folic acid 1 mg tablet 1 mg PO DAILY Qty: 30 1RF lorazepam [Ativan] 1 mg tablet 1 mg PO TID PRN (Reason: alcohol withdrawal) Qty: 6 0RF lisinopril 20 mg tablet 20 mg PO DAILY Qty: 90 8RF ondansetron 4 mg tablet,disintegrating 4 mg PO Q8H PRN (Reason: nausea and vomiting) Qty: 20 0RF chlordiazepoxide HCl 25 mg capsule 25 mg PO Q6-8H PRN (Reason: alcohol withdrawal) Qty: 7 0RF albuterol sulfate 90 mcg/actuation HFA aerosol inhaler 2 puff PO Q6H PRN naltrexone 50 mg tablet 50 mg PO DAILY Qty: 30 2RF Interventions: ED Discharge Assessment Last Done: 11/02/21 03:13 Discharge Date/Time: 11/02/21 03:48
[2021-11-02 01:45] LABS: MANUAL DIFF FLAG NO
[2021-11-02 01:46] LABS: Basophils Absolute Auto 0.1 X10*3/uL (0.0-0.2); Basophils Percent Auto 1.1 % (0-2); Eosinophils Percent Auto 0.1 % (0-4); Hematocrit 47.4 % (42.0-52.0); Hemoglobin 16.4 g/dl (14.0-18.0); Imm Gran Abs Auto 0.03 X10*3/uL (0.00-0.03); Imm Gran Pct Auto 0.4 % (0.0-0.4); Lymphocytes Absolute Auto 1.5 X10*3/uL (1.2-4.9); Lymphocytes Percent Auto 18.2 % (20-40); Mean Corpuscular HGB Conc 34.6 g/dl (31.0-36.0); Mean Corpuscular Volume 92.6 fL (80.0-98.0); Mean Platelet Volume 8.4 fL (9.4-12.4); Monocytes Percent Auto 12.1 % (2-11); Neutrophils Absolute Auto 5.7 x10*3/uL (2.0-8.3); Neutrophils Percent Auto 68.1 % (45-73); Platelet Count 407 X10*3/uL (160-400); Red Blood Count 5.12 X10*6/uL (4.60-5.80); Red Cell Distribution Width 12.9 % (11.0-16.0); White Blood Count 8.4 X10*3/uL (4.8-10.8)
[2021-11-02 02:00] VITALS: BP 146/93; PULSE 107; RESP 16; TEMP 37.2; O2SAT 95
[2021-11-02 02:09] LABS: Alanine Aminotransferase 95 U/L (0-40); Albumin Level 4.2 g/dL (3.5-5.0); Alkaline Phosphatase 56 U/L (39-117); Anion Gap 18 (12-20); Aspartate Amino Transferase 60 U/L (5-37); Bilirubin Total 1.4 mg/dL (0.0-1.0); Blood Urea Nitrogen 9 mg/dL (9-16); Calcium 9.6 mg/dL (8.4-10.2); Carbon Dioxide 25 mmol/L (22-29); Chloride 95 mmol/L (96-108); Creatinine Clr Calc Pharmacy 193.9; Estimated Glomerular Filt Rate > 60; Ethanol < 10 mg/dL; Glucose Random 99 mg/dL (60-115); Magnesium 1.6 mg/dL (1.6-2.6); Potassium 3.6 mmol/L (3.3-5.1); Sodium 134 mmol/L (135-145); Total Protein 7.1 g/dL (6.5-8.0)
[2021-11-02] MEDS: diazePAM 10 MG/2 ML CARTRIDGE 5 MG IVPUSH (02:34)
[2021-11-02] MEDS: 0.9 % Sodium Chloride 1,000 ML 999 ML IV (02:34)
[2021-11-02 02:47] LABS: Amphetamine Screen Urine Not Detected (Not Detect); Barbiturates, Urine POSITIVE (Not Detect); Benzodiazepines Screen Urine Not Detected (Not Detect); Cannabinoid Screen Urine Not Detected (Not Detect); Cocaine Screen Urine Not Detected (Not Detect); Fentanyl, urine Not Detected (Not Detect); Opiate Screen Urine Not Detected (Not Detect); Phencyclidine Screen Urine Not Detected (Not Detect)
== END 2021-11-02 03:48 | disposition home or self-care (01) ==
PROVIDERS: Emergency Provider Emergency Medicine; PCP Internal Medicine
DX: F41.9 Anxiety disorder, unspecified (principal); F10.230 Alcohol dependence with withdrawal, uncomplicated; Y90.0 Blood alcohol level of less than 20 mg/100 ml; K70.10 Alcoholic hepatitis without ascites; I10 Essential (primary) hypertension; Z79.899 Other long term (current) drug therapy
CPT/HCPCS: 80053; 80307; 82077; 83735; 85025; 93005; 96361; 96374; 99284; J3360

== ENCOUNTER 2022-01-20 00:17 | Emergency (ER) | payer OTHER, SELFPAY ==
[2022-01-20 00:39] VITALS: BP 185/117; PULSE 115; RESP 20; TEMP 36.6; O2SAT 94; BMI 25.1
[2022-01-20 01:06] LABS: MANUAL DIFF FLAG NO
[2022-01-20 01:08] LABS: Basophils Absolute Auto 0.1 X10*3/uL (0.0-0.2); Basophils Percent Auto 1.7 % (0-2); Eosinophils Percent Auto 0.2 % (0-4); Hematocrit 50.8 % (42.0-52.0); Hemoglobin 17.2 g/dl (14.0-18.0); Imm Gran Abs Auto 0.01 X10*3/uL (0.00-0.03); Imm Gran Pct Auto 0.2 % (0.0-0.4); Lymphocytes Absolute Auto 2.4 X10*3/uL (1.2-4.9); Lymphocytes Percent Auto 49.4 % (20-40); Mean Corpuscular HGB Conc 33.9 g/dl (31.0-36.0); Mean Corpuscular Hemoglobin 32.5 pg (27.0-33.0); Mean Corpuscular Volume 95.8 fL (80.0-98.0); Mean Platelet Volume 8.3 fL (9.4-12.4); Monocytes Absolute Auto 0.4 X10*3/uL (0.1-1.2); Monocytes Percent Auto 8.6 % (2-11); Neutrophils Absolute Auto 1.9 x10*3/uL (2.0-8.3); Neutrophils Percent Auto 39.9 % (45-73); Platelet Count 370 X10*3/uL (160-400); Red Cell Distribution Width 13.6 % (11.0-16.0); White Blood Count 4.8 X10*3/uL (4.8-10.8)
[2022-01-20 01:19] LABS: Amphetamine Screen Urine Not Detected (Not Detect); Barbiturates, Urine Not Detected (Not Detect); Benzodiazepines Screen Urine Not Detected (Not Detect); Cannabinoid Screen Urine Not Detected (Not Detect); Cocaine Screen Urine Not Detected (Not Detect); Fentanyl, urine Not Detected (Not Detect); Opiate Screen Urine POSITIVE (Not Detect); Phencyclidine Screen Urine Not Detected (Not Detect)
[2022-01-20 01:30] LABS: Ethanol 340 mg/dL; Magnesium 2.1 mg/dL (1.6-2.6)
[2022-01-20 01:41] LABS: COVID-19 Test Negative (Negative); IDNOW Serial# 16C4AD1C
--- OUTSIDE RECORDS SUMMARY | 2022-01-20 01:49 | XMS_ITS | Continuity of Care Document ---
:1990 Author Organization [facility] Address [address] [place] [id number] Care Team Providers Name Role Phone Roland COX, Yomi Montenegro Primary Care Physician Encounter [facility] [place]): 11/01/21 - 11/01/[address] [address]- Discharge Disposition: A-D/C Walkout Attending Physician: Not on Staff, Attending MD Admitting Physician: Not on Staff, Admitting MD Referring Physician: Not on Staff, Referring MD Allergies, Adverse Reactions, Alerts Substance Reaction Severity Status Cats Active Pollen Active Medications clonazepam 1 mg oral tablet See Instructions, 0.5-1 tab three times a day, # 90 tablet, 0 Refills, Maintenance Start Date: 10/18/11 Status: OrderedInderal 40 mg oral tablet 40 mg, 1, tablet, By Mouth, 2 times a day, Refills 0, Maintenance, 09/06/15 2:20:19 Start Date: 09/06/15 Status: Orderedomeprazole 40 mg oral enteric coated capsule 1 capsule = 40 mg, By Mouth, Daily, # 30 capsule, 0 Refills, Maintenance, 09/06/15 2:20:50, EC Capsule Start Date: 09/06/15 Status: Orderedrisperidone 0.5 mg oral tablet 1 tablet = 0.5 mg, By Mouth, 2 times a day, # 60 tablet, 0 Refills, Maintenance, Tablet Start Date: 08/18/11 Status: Orderedtrazodone 100 mg oral tablet See Instructions, 0.5-1 tablet By Mouth half an hour before bedtime, # 30 tablet, 0 Refills, Maintenance Start Date: 08/25/11 Status: Orderedvenlafaxine 150 mg oral capsule, extended release 1 capsule = 150 mg, By Mouth, Daily, # 30 capsule, 0 Refills, Maintenance, CR Capsule Start Date: 08/18/11 Status: Ordered Vital Signs Most recent to oldest [Reference Range]: 1 2 Oxygen Saturation [94-100 %] 96 % (11/01/21 1:36 AM) Pulse Rate [55-90 bpm] 136 bpm 136 bpm *H* *H* (11/01/21 1:36 AM) (11/01/21 1:34 AM) Blood Pressure [90-138/55-84 mm Hg] 136/86 mm Hg 136/ 86 mm Hg (11/01/21 1:36 AM) (11/01/21 1:34 AM) Respiratory Rate [16-30 br/min] 18 br/min 18 br/mi n (11/01/21 1:36 AM) (11/01/21 1:34 AM) Temperature [96.8-100.4 DegF] 97.6 DegF 97.6 DegF (11/01/21 1:36 AM) (11/01/21 1:34 AM) Mode of Delivery (Oxygen) Nasal cannula (11/01/21 1:36 AM) Blood pressure sites Arm, right (11/01/21 1:36 AM) Temperature Route Oral Oral (11/01/21 1:36 AM) (11/01/21 1:34 AM) Care Team PersonnelName: Roland COX, Yomi Montenegro Address: [address] [place] [address] [address] [place] [address]-
[2022-01-20 02:08] VITALS: BP 167/97; PULSE 117; RESP 18; TEMP 36.6; O2SAT 94
[2022-01-20] MEDS: 0.9 % Sodium Chloride 2,000 ML 999 ML IV (02:26)
--- NOTE | 2022-01-20 02:51 | ED.ALCOHOL ---
HPI - Alcohol General Chief Complaint: ETOH/Substance Use Stated Complaint: Alcohol Withdrawal Time Seen by Provider: 01/20/22 01:43 Source: patient Mode of arrival: ambulatory History of Present Illness HPI narrative: 31-year-old male brought in by his mother and has a history of alcohol use and was last in detox in 2013. Patient states he has begun relapsing and is consumed a large amount of alcohol over the past 2-3 days because his girlfriend who lives in the keeps on bothering him about when he is going to visit. He denies any SI/HI and is interested in participating in an outpatient program in [place]. He denies any history of seizure activity. Related Data Home Medications Medication Instructions Recorded Confirmed albuterol sulfate 90 mcg/actuation 2 puff PO Q6H PRN 03/11/20 10/04/21 aerosol inhaler Previous Rx's Medication Instructions Recorded hydrochlorothiazide 25 mg tablet 25 mg PO DAILY #90 tabs 02/24/20 omeprazole 20 mg capsule,delayed 20 mg PO DAILY 90 days #90 caps 04/26/21 release alprazolam 1 mg tablet 1 mg PO TID PRN anxiety #90 tabs 06/17/21 ondansetron 4 mg disintegrating 4 mg PO Q8H PRN nausea and 06/30/21 tablet vomiting #20 tabs naltrexone 50 mg tablet 50 mg PO DAILY #30 tabs 08/05/21 chlordiazepoxide HCl 25 mg capsule 25 mg PO Q6H PRN alcohol 09/10/21 withdrawal #7 caps chlordiazepoxide HCl 25 mg capsule 25 mg PO Q6-8H PRN alcohol 09/24/21 withdrawal #7 caps folic acid 1 mg tablet 1 mg PO DAILY #30 tabs 09/24/21 lisinopril 20 mg tablet 20 mg PO DAILY #90 tabs 09/24/21 thiamine HCl (vitamin B1) 100 mg 100 mg PO DAILY #30 tabs 09/24/21 tablet lorazepam 1 mg tablet 1 mg PO Q6H PRN alcohol withdrawal 11/02/21 #15 tabs lorazepam 1 mg tablet (Ativan) 1 mg PO TID PRN alcohol withdrawal 01/12/22 #60 tabs trazodone 50 mg tablet 50 mg PO BEDTIME PRN sleep #30 tabs 01/18/22 Allergies Allergy/AdvReac Type Severity Reaction Status Date / Time No Known Allergies Allergy Verified 01/20/22 00:44 [No Known Allergies*] Review of Systems Review of Systems: Pertinent positives and negatives as stated in HPI 10 point review of systems is otherwise negative. [facility] Past Medical History Source: nursing notes reviewed Medical History Alcohol dependence Alcoholic hepatitis Anxiety Depression Hypertension Surgical History No history of previous surgery Family History Family History Mother No problems noted. Father No problems noted. Social History Social History Housing: Condominium Alcohol intake: current Alcohol intake frequency: former alcohol drinker Alcohol type: hard liquor Patient Tobacco Use Status: Never used Tobacco Smoked in Last 30 Days: Yes e-Cigarette/Vaping Use: Never Used Second Hand Smoke Exposure: No Use of substances other than those prescribed or required for medical reasons: No Substance Use Type: Marijuana Advance Directives: No service: No Current occupational status: employed Cognitive needs: No Hearing needs: No Vision needs: No Physical Exam ED Vital Signs: Vital Signs - 24 hr 01/20/22 00:39 01/20/22 02:08 01/20/22 03:39 Temperature 97.9 F 97.9 F 98.1 F Pulse Rate 115 H 117 H 71 Respiratory Rate 20 18 18 Blood Pressure 185/117 H 167/97 H 124/69 Pulse Oximetry 94 94 96 Oxygen Delivery Method Room Air Room Air Room Air BMI result Body Mass Index 25.1 VITAL SIGNS: Reviewed. GENERAL: Well developed, well nourished, in no acute distress. HEAD: Normocephalic/atraumatic EYES: PERRLA, EOMI EARS: Ext canals without abnormality OROPHARYNX: no oral lesions noted, posterior pharynx clear LUNGS: Normal breath sounds. No adventitious sounds or accessory muscle use. SpO2<94> CARDIOVASCULAR: Regular rate and rhythm without noted murmurs, no JVD or lower extremity edema. ABDOMEN: Soft, non-tender, non-distended with bowel sounds. MUSCULOSKELETAL: No tenderness, deformities, or effusions noted on gross inspection. EXTREMITIES: No cyanosis, clubbing or edema. SKIN: Inspection of the skin reveals no rashes NEUROLOGIC: Alert and oriented x 4. Strength and sensation to light touch were grossly intact x 4. Course Course Course Narrative: 31-year-old male with history and clinical presentation consistent with alcohol intoxication, dehydration and will put him in for rn recovery evaluation. Patient's mother is here, and he feels much better after receiving 2 L of IV fluids. Patient is not in acute alcohol withdrawal and both the mother who is at bedside as well as the patient endorse that patient will pursue outpatient treatment through the [facility]. Patient is neither depressed/suicidal/homicidal. He is otherwise discharged home with a safe ride by his mother. Medications Administered Discontinued Medications Generic Name Dose Route Start Last Admin Trade Name Freq PRN Reason Stop Dose Admin Sodium Chloride 2,000 mls @ 999 mls/hr 01/20/22 01:15 01/20/22 04:45 Ns IV 01/20/22 03:15 Infused .Q2H1M PRECIOUS Infusion MDM - Alcohol Lab Data Result diagrams: 01/20/22 01:01 01/20/22 03:17 Labs: Lab Results 01/20/22 01/20/22 01/20/22 Range/Units 00:57 01:01 01:01 WBC 4.8 (4.8-10.8) X10*3/uL RBC 5.30 (4.60-5.80) X10*6/uL Hgb 17.2 (14.0-18.0) g/dl Hct 50.8 (42.0-52.0) % MCV 95.8 (80.0-98.0) fL MCH 32.5 (27.0-33.0) pg MCHC 33.9 (31.0-36.0) g/dl RDW 13.6 (11.0-16.0) % Plt Count 370 (160-400) X10*3/uL MPV 8.3 L (9.4-12.4) fL Immature Gran % (Auto) 0.2 (0.0-0.4) % Neut % (Auto) 39.9 L (45-73) % Lymph % (Auto) 49.4 H (20-40) % [place] % (Auto) 8.6 (2-11) % Eos % (Auto) 0.2 (0-4) % Baso % (Auto) 1.7 (0-2) % Lymph # (Auto) 2.4 (1.2-4.9) X10*3/uL [place] # (Auto) 0.4 (0.1-1.2) X10*3/uL Eos # (Auto) 0.0 (0.0-0.4) X10*3/uL Baso # (Auto) 0.1 (0.0-0.2) X10*3/uL Abs Immat Gran (auto) 0.01 (0.00-0.03) X10*3/uL Absolute Neuts (auto) 1.9 L (2.0-8.3) x10*3/uL Absolute Nucleated RBC 0.000 (0.0-0.012) X10*3/uL Nucleated RBC % (auto) 0.0 (0.0-0.2) /100WBC Sodium (135-145) mmol/L Potassium (3.3-5.1) mmol/L Chloride (96-108) mmol/L Carbon Dioxide (22-29) mmol/L Anion Gap (12-20) BUN (9-16) mg/dL Creatinine (0.5-1.4) mg/dL Estim Creat Clear Calc Estimated GFR Random Glucose (60-115) mg/dL Calcium (8.4-10.2) mg/dL Magnesium 2.1 (1.6-2.6) mg/dL Total Bilirubin (0.0-1.0) mg/dL AST (5-37) U/L ALT (0-40) U/L Alkaline Phosphatase (39-117) U/L Total Protein (6.5-8.0) g/dL Albumin (3.5-5.0) g/dL Urine Opiates Screen POSITIVE H (Not Detect) Urine Fentanyl Screen Not Detected (Not Detect) Ur Barbiturates Screen Not Detected (Not Detect) Ur Phencyclidine Scrn Not Detected (Not Detect) Ur Amphetamines Screen Not Detected (Not Detect) U Benzodiazepines Scrn Not Detected (Not Detect) Urine Cocaine Screen Not Detected (Not Detect) U Marijuana (THC) Screen Not Detected (Not Detect) Ethyl Alcohol 340 H* mg/dL COVID-19 (DUSTIN) (Negative) COVID-19 Clin Com 01/20/22 01/20/22 Range/Units 01:19 03:17 WBC (4.8-10.8) X10*3/uL RBC (4.60-5.80) X10*6/uL Hgb (14.0-18.0) g/dl Hct (42.0-52.0) % MCV (80.0-98.0) fL MCH (27.0-33.0) pg MCHC (31.0-36.0) g/dl RDW (11.0-16.0) % Plt Count (160-400) X10*3/uL MPV (9.4-12.4) fL Immature Gran % (Auto) (0.0-0.4) % Neut % (Auto) (45-73) % Lymph % (Auto) (20-40) % [place] % (Auto) (2-11) % Eos % (Auto) (0-4) % Baso % (Auto) (0-2) % Lymph # (Auto) (1.2-4.9) X10*3/uL [place] # (Auto) (0.1-1.2) X10*3/uL Eos # (Auto) (0.0-0.4) X10*3/uL Baso # (Auto) (0.0-0.2) X10*3/uL Abs Immat Gran (auto) (0.00-0.03) X10*3/uL Absolute Neuts (auto) (2.0-8.3) x10*3/uL Absolute Nucleated RBC (0.0-0.012) X10*3/uL Nucleated RBC % (auto) (0.0-0.2) /100WBC Sodium 144 (135-145) mmol/L Potassium 4.1 (3.3-5.1) mmol/L Chloride 105 (96-108) mmol/L Carbon Dioxide 23 (22-29) mmol/L Anion Gap 20 (12-20) BUN 7 L (9-16) mg/dL Creatinine 0.70 (0.5-1.4) mg/dL Estim Creat Clear Calc 165.8 Estimated GFR > 60 Random Glucose 91 (60-115) mg/dL Calcium 8.7 D (8.4-10.2) mg/dL Magnesium (1.6-2.6) mg/dL Total Bilirubin 0.5 (0.0-1.0) mg/dL AST 102 H (5-37) U/L ALT 190 H (0-40) U/L Alkaline Phosphatase 56 (39-117) U/L Total Protein 7.2 (6.5-8.0) g/dL Albumin 4.5 (3.5-5.0) g/dL Urine Opiates Screen (Not Detect) Urine Fentanyl Screen (Not Detect) Ur Barbiturates Screen (Not Detect) Ur Phencyclidine Scrn (Not Detect) Ur Amphetamines Screen (Not Detect) U Benzodiazepines Scrn (Not Detect) Urine Cocaine Screen (Not Detect) U Marijuana (THC) Screen (Not Detect) Ethyl Alcohol mg/dL COVID-19 (DUSTIN) Negative (Negative) COVID-19 Clin Com See Note Discharge Plan Discharge Clinical Impression: Alcohol intoxication, Alcohol use disorder Patient Disposition: Home, Self-Care Instructions: Alcohol Intoxication (ED), Alcohol Use Disorder (ED) Additional Instructions: 1. Please call the outpatient treatment facility today to arrange for definitive detox treatment. 2. Do not hesitate to return to this emergency room should you require any further assistance in your detox process. Prescriptions: No Action hydrochlorothiazide 25 mg tablet 25 mg PO DAILY Qty: 90 8RF omeprazole 20 mg capsule,delayed release(DR/EC) 20 mg PO DAILY 90 Days Qty: 90 8RF alprazolam 1 mg tablet 1 mg PO TID PRN (Reason: anxiety) Qty: 90 5RF chlordiazepoxide HCl 25 mg capsule 25 mg PO Q6H PRN (Reason: alcohol withdrawal) Qty: 7 0RF thiamine HCl (vitamin B1) 100 mg tablet 100 mg PO DAILY Qty: 30 1RF folic acid 1 mg tablet 1 mg PO DAILY Qty: 30 1RF lisinopril 20 mg tablet 20 mg PO DAILY Qty: 90 8RF lorazepam [Ativan] 1 mg tablet 1 mg PO TID PRN (Reason: alcohol withdrawal) Qty: 60 3RF trazodone 50 mg tablet 50 mg PO BEDTIME PRN (Reason: sleep) Qty: 30 3RF ondansetron 4 mg tablet,disintegrating 4 mg PO Q8H PRN (Reason: nausea and vomiting) Qty: 20 0RF chlordiazepoxide HCl 25 mg capsule 25 mg PO Q6-8H PRN (Reason: alcohol withdrawal) Qty: 7 0RF lorazepam 1 mg tablet 1 mg PO Q6H PRN (Reason: alcohol withdrawal) Qty: 15 0RF albuterol sulfate 90 mcg/actuation HFA aerosol inhaler 2 puff PO Q6H PRN naltrexone 50 mg tablet 50 mg PO DAILY Qty: 30 2RF Referrals: Doni Cazares MD [Primary Care Provider] -
[2022-01-20 03:39] VITALS: BP 124/69; PULSE 71; RESP 18; TEMP 36.7; O2SAT 96
[2022-01-20 03:45] LABS: Alanine Aminotransferase 190 U/L (0-40); Albumin Level 4.5 g/dL (3.5-5.0); Alkaline Phosphatase 56 U/L (39-117); Anion Gap 20 (12-20); Aspartate Amino Transferase 102 U/L (5-37); Bilirubin Total 0.5 mg/dL (0.0-1.0); Blood Urea Nitrogen 7 mg/dL (9-16); Calcium 8.7 mg/dL (8.4-10.2); Carbon Dioxide 23 mmol/L (22-29); Chloride 105 mmol/L (96-108); Creatinine Clr Calc Pharmacy 165.8; Estimated Glomerular Filt Rate > 60; Glucose Random 91 mg/dL (60-115); Potassium 4.1 mmol/L (3.3-5.1); Sodium 144 mmol/L (135-145); Total Protein 7.2 g/dL (6.5-8.0)
--- NOTE | 2022-01-20 05:12 | PC.NURSE ---
Provided pt. with printed information for detox and recovery centers upon discharge
== END 2022-01-20 05:16 | disposition home or self-care (01) ==
PROVIDERS: Emergency Provider Student in an Organized Health Care Education/Training Program; PCP Internal Medicine
DX: F10.239 Alcohol dependence with withdrawal, unspecified (principal); Y90.8 Blood alcohol level of 240 mg/100 ml or more; Z79.899 Other long term (current) drug therapy; Z20.822 Contact with and (suspected) exposure to COVID-19
CPT/HCPCS: 36415; 80053; 80307; 82077; 83735; 85025; 87635; 96360; 96361; 99284

== ENCOUNTER 2022-01-21 21:42 | Emergency (ER) | payer OTHER, SELFPAY ==
[2022-01-21 21:53] VITALS: BP 140/100; PULSE 103; RESP 16; TEMP 36.2; O2SAT 93; BMI 37.6
== END 2022-01-22 00:58 | disposition left against medical advice (07) ==
PROVIDERS: Emergency Provider Emergency Medicine; PCP Internal Medicine
DX: F10.239 Alcohol dependence with withdrawal, unspecified (principal); F41.9 Anxiety disorder, unspecified; R42 Dizziness and giddiness
CPT/HCPCS: 99282; 99283

== ENCOUNTER 2022-04-21 10:18 | Emergency (ER) | payer OTHER, SELFPAY ==
--- NOTE | ~2022-04-21 | XR_ITS ---
EXAMINATION: XR CHEST CLINICAL INFORMATION: Chest pain with shortness of breath COMPARISON: June 22, 2021 TECHNIQUE: 2 views of the chest were obtained. FINDINGS: No significant abnormality is noted involving the heart, lungs, mediastinum, bony thorax or soft tissues. XR/XR chest 2V IMPRESSION: No acute disease.
--- NOTE | 2022-04-21 10:22 | ECG_ITS ---
Test Reason : chest pain Blood Pressure : / mmHG Vent. Rate : 101 BPM Atrial Rate : 101 BPM P-R Int : 144 ms QRS Dur : 086 ms QT Int : 328 ms P-R-T Axes : 039 015 051 degrees QTc Int : 425 ms Sinus tachycardia Otherwise normal ECG When compared with ECG of 02-NOV-2021 01:15, No significant change was found Referred By: Generic ED Physician Electronically Signed By:Dilip Reyes
[2022-04-21 10:35] VITALS: BP 134/67; PULSE 111; RESP 19; TEMP 36.6; O2SAT 98; BMI 37.6
[2022-04-21 11:06] LABS: MANUAL DIFF FLAG NO
[2022-04-21 11:08] LABS: Basophils Absolute Auto 0.1 X10*3/uL (0.0-0.2); Eosinophils Absolute Auto 0.3 X10*3/uL (0.0-0.4); Eosinophils Percent Auto 2.5 % (0-4); Hematocrit 51.3 % (42.0-52.0); Hemoglobin 17.4 g/dl (14.0-18.0); Imm Gran Abs Auto 0.07 X10*3/uL (0.00-0.03); Imm Gran Pct Auto 0.7 % (0.0-0.4); Lymphocytes Absolute Auto 3.2 X10*3/uL (1.2-4.9); Lymphocytes Percent Auto 31.7 % (20-40); Mean Corpuscular HGB Conc 33.9 g/dl (31.0-36.0); Mean Corpuscular Hemoglobin 32.6 pg (27.0-33.0); Mean Corpuscular Volume 96.1 fL (80.0-98.0); Mean Platelet Volume 8.8 fL (9.4-12.4); Neutrophils Absolute Auto 5.5 x10*3/uL (2.0-8.3); Neutrophils Percent Auto 54.1 % (45-73); Platelet Count 368 X10*3/uL (160-400); Red Blood Count 5.34 X10*6/uL (4.60-5.80); Red Cell Distribution Width 12.1 % (11.0-16.0); White Blood Count 10.2 X10*3/uL (4.8-10.8)
[2022-04-21 11:26] LABS: Alanine Aminotransferase 128 U/L (0-40); Albumin Level 4.3 g/dL (3.5-5.0); Alkaline Phosphatase 57 U/L (39-117); Anion Gap 18 (12-20); Aspartate Amino Transferase 59 U/L (5-37); Bilirubin Direct < 0.2 mg/dL (0.0-0.5); Bilirubin Total 0.5 mg/dL (0.0-1.0); Blood Urea Nitrogen 19 mg/dL (9-16); Calcium 9.5 mg/dL (8.4-10.2); Carbon Dioxide 18 mmol/L (22-29); Chloride 105 mmol/L (96-108); Creatinine Clr Calc Pharmacy 183.7; Estimated Glomerular Filt Rate > 60; Glucose Random 105 mg/dL (60-115); Lipase 31 U/L (8-78); Potassium 4.2 mmol/L (3.3-5.1); Sodium 137 mmol/L (135-145); Total Protein 7.1 g/dL (6.5-8.0)
[2022-04-21 11:36] LABS: Troponin-I High Sensitivity < 3.5 ng/L (<3.5-35.0)
--- NOTE | 2022-04-21 12:40 | ED_ITS ---
HPI - Chest Pain General Chief Complaint: Chest Pain Stated Complaint: CP, sob, pain/ numbness L arm Time Seen by Provider: 04/21/22 12:00 Source: patient Mode of arrival: ambulatory Limitations: no limitations History of Present Illness HPI narrative: 31-year-old male with a history of anxiety, depression, OCD, alcohol use disorder, hypertension who presents with complaints of chest pain, shortness of breath since Monday. Patient reports over the weekend he was binge drinking. Monday and Monday he felt like he was going through alcohol withdrawals at home which he describes as nausea, dry heaves, shakiness. Patient reports he had lorazepam home so he was giving himself lorazepam to help with the symptoms. His chest pain began on Monday as well as shortness of breath the symptoms have continued even know his nausea and shakiness have improved. Patient reports the symptoms of chest pain and shortness of breath or intermittent. They are not associated with exertion. They are not associated with deep breathing or position changes. He has no associated cough, fever, leg swelling or leg pain. No recent travel or sick contact. No history DVT or PE or family history of same. No family history of sudden cardiac . Patient denies any additional substance use. He does smoke cigarettes daily. He has an alcohol use disorder and drinks alcohol but describes this as binge drinking only. He does currently have a therapist. He is waiting to establish psychiatrist. Patient reports he has been seen by the recovery team in the past. It was recommended that he go on Vivitrol but he did not want to do this due to potential side effects Related Data Home Medications Medication Instructions Recorded Confirmed albuterol sulfate 90 mcg/actuation 2 puff PO Q6H PRN 03/11/20 10/04/21 aerosol inhaler Previous Rx's Medication Instructions Recorded hydrochlorothiazide 25 mg tablet 25 mg PO DAILY #90 tabs 02/24/20 omeprazole 20 mg capsule,delayed 20 mg PO DAILY 90 days #90 caps 04/26/21 release alprazolam 1 mg tablet 1 mg PO TID PRN anxiety #90 tabs 06/17/21 ondansetron 4 mg disintegrating 4 mg PO Q8H PRN nausea and 06/30/21 tablet vomiting #20 tabs naltrexone 50 mg tablet 50 mg PO DAILY #30 tabs 08/05/21 chlordiazepoxide HCl 25 mg capsule 25 mg PO Q6H PRN alcohol 09/10/21 withdrawal #7 caps chlordiazepoxide HCl 25 mg capsule 25 mg PO Q6-8H PRN alcohol 09/24/21 withdrawal #7 caps folic acid 1 mg tablet 1 mg PO DAILY #30 tabs 09/24/21 lisinopril 20 mg tablet 20 mg PO DAILY #90 tabs 09/24/21 thiamine HCl (vitamin B1) 100 mg 100 mg PO DAILY #30 tabs 09/24/21 tablet trazodone 50 mg tablet 50 mg PO BEDTIME PRN sleep #30 tabs 01/18/22 lorazepam 1 mg tablet 1 mg PO Q6H PRN alcohol withdrawal 04/11/22 #15 tabs lorazepam 1 mg tablet (Ativan) 1 mg PO TID PRN alcohol withdrawal 04/11/22 #60 tabs Allergies Allergy/AdvReac Type Severity Reaction Status Date / Time No Known Allergies Allergy Verified 01/21/22 21:53 [No Known Allergies*] Review of Systems Review of Systems: Yes all other systems are reviewed and are negative Constitutional: Constitutional: Reports no additional constitutional complaints, Denies body ache(s), Denies chills, Denies fever(s), Denies headache(s) and Denies weakness Eyes: Eyes: Reports no additional eye complaints and Denies change in vision ENT: Reports system reviewed and no additional complaints, except as documented, Denies dizziness, Denies headache(s), Denies nasal congestion, Denies nasal discharge and Denies neck pain Cardiovascular: Cardiovascular: Reports no additional cardiovascular complaints, Reports chest pain, Denies leg edema and Reports dyspnea Respiratory: Respiratory: Reports no additional respiratory complaints, Denies cough and Reports dyspnea Gastrointestinal: Gastrointestinal: Reports no additional gastrointestinal complaints, Denies abdominal pain, Denies diarrhea, Denies nausea and Denies vomiting Genitourinary: Genitourinary: Denies urinary incontinence Musculoskeletal: Musculoskeletal: Reports no additional musculoskeletal complaints, Denies back pain, Denies arthralgias, Denies joint swelling, Denies neck pain, Denies numbness and Denies tingling Integumentary/Breasts: Skin/Breast: Reports system reviewed and no additional complaints, except as docu and Denies rash Neurologic: Reports system reviewed and no additional complaints, except as documented, Denies Abnormal speech present, Denies dizziness, Denies headache(s), Denies numbness, Denies tingling and Denies weakness [facility] Past Medical History Attestation statement: The following information was validated with the patient. Source: old records reviewed and nursing notes reviewed Medical History Alcohol dependence Alcoholic hepatitis Anxiety Depression Hypertension Surgical History No history of previous surgery Family History Family History Mother No problems noted. Father No problems noted. Social History Social History Housing: Condominium Alcohol intake: current Alcohol intake frequency: former alcohol drinker Alcohol type: hard liquor Patient Tobacco Use Status: Never used Tobacco Smoked in Last 30 Days: Yes e-Cigarette/Vaping Use: Never Used Second Hand Smoke Exposure: No Use of substances other than those prescribed or required for medical reasons: No Substance Use Type: Marijuana Advance Directives: No service: No Current occupational status: employed Cognitive needs: No Hearing needs: No Vision needs: No Physical Exam Vital Signs: Vital Signs: Last Vital Signs Temp 98.2 F 04/21/22 13:17 Pulse 69 04/21/22 13:17 Resp 16 04/21/22 13:17 BP 128/82 04/21/22 13:17 Pulse Ox 98 04/21/22 13:17 O2 Del Method 04/21/22 13:17 BMI result Body Mass Index 37.6 Const: General: cooperative, healthy appearing, comfortable and no acute distress Orientation/consciousness: patient oriented x3 Limitations: no limitations HEENT: Head: Yes normal to inspection Ears: hearing grossly normal bilaterally General nose exam: Normal external nose present Face and sinus: Yes normal facial exam Mouth: Normal oral and palatal mucosa present Throat: Yes posterior oropharynx normal Eyes: General: appearance normal, both eyes and all related structures Pupils: Equal, round and reactive pupils present Neck: Neck: Yes normal visual inspection Chest: Chest palpation & inspection: normal inspection of the chest Resp: Effort & Inspection: normal respiratory effort Auscultation: clear to auscultation bilaterally Cardio: Rate: regular rate Rhythm: regular rhythm Peripheral pulses: Peripheral pulses 2+ throughout GI: Inspection: Yes normal to inspection Palpation (GI): Soft to palpation and nontender Auscultation: normal bowel sounds Back/Spine/Pelvis: Thoracic/Lumbar Spine: thoracic and lumbar spine normal to inspection Skin: General skin exam: no rashes or lesions noted Neuro: General: patient oriented x3, no focal motor deficits and normal sensation to monofilament Cranial nerves: Yes Equal, round and reactive pupils present Cognition (Neuro): normal cognition Speech: No Abnormal speech present Gait exam (Neuro): Normal gait present Motor exam (neuro): 5/5 motor strength present throughout Extrem: General: Yes normal to inspection, Yes no pedal edema and Yes no calf tenderness Course Course Course Narrative: Labs are unremarkable. EKG and chest x-ray show no acute changes. Viral testing is negative. Patient reports multiple life stressors. Patient reports the symptoms also began after he was binge drinking all weekend and then believes that he has some withdrawal symptoms at home. Likely multifactorial. Low concern for ACS. Patient was given information for our recovery team here at [place]. He tells me he has not with them before they recommended he start Vivitrol. Reviewed worrisome signs and symptoms when to return to the emergency room. Com fortable plan for discharge home. Medical Decision Making Medical Decision Making [facility] Narrative: 31-year-old male here with chest pain and shortness of breath since Monday which is not exertional, not associated with position changes or deep breathing and not with any associated cough, fever, leg swelling or leg pain. Patient reports this was preceded by a weekend of binge drinking. Will obtain l abs, EKG, chest x-ray, COVID screen Differential Diagnosis Differential Diagnoses: The differential diagnosis associated with the presentat ion includes Less likely ACS Perc score 0 so less likely PE Less likely dissection Lab Data [facility] Lab Attestation statement: I reviewed the patient's lab results. 04/21/22 11:00 04/21/22 11:00 Labs: Lab Results 04/21/22 04/21/22 04/21/22 Range/Units 11:00 11:00 11:00 WBC 10.2 (4.8-10.8) X10*3/uL RBC 5.34 (4.60-5.80) X10*6/uL Hgb 17.4 (14.0-18.0) g/dl Hct 51.3 (42.0-52.0) % MCV 96.1 (80.0-98.0) fL MCH 32.6 (27.0-33.0) pg MCHC 33.9 (31.0-36.0) g/dl RDW 12.1 (11.0-16.0) % Plt Count 368 (160-400) X10*3/uL MPV 8.8 L (9.4-12.4) fL Immature Gran % (Auto) 0.7 H (0.0-0.4) % Neut % (Auto) 54.1 (45-73) % Lymph % (Auto) 31.7 (20-40) % [place] % (Auto) 10.0 (2-11) % Eos % (Auto) 2.5 (0-4) % Baso % (Auto) 1.0 (0-2) % Lymph # (Auto) 3.2 (1.2-4.9) X10*3/uL [place] # (Auto) 1.0 (0.1-1.2) X10*3/uL Eos # (Auto) 0.3 (0.0-0.4) X10*3/uL Baso # (Auto) 0.1 (0.0-0.2) X10*3/uL Abs Immat Gran (auto) 0.07 H (0.00-0.03) X10*3/uL Absolute Neuts (auto) 5.5 (2.0-8.3) x10*3/uL Absolute Nucleated RBC 0.000 (0.0-0.012) X10*3/uL Nucleated RBC % (auto) 0.0 (0.0-0.2) /100WBC PT (10.0-13.1) SEC INR (0.9-1.1) D-Dimer High Sensitivty NG/ML Sodium 137 (135-145) mmol/L Potassium 4.2 (3.3-5.1) mmol/L Chloride 105 (96-108) mmol/L Carbon Dioxide 18 L (22-29) mmol/L Anion Gap 18 (12-20) BUN 19 H (9-16) mg/dL Creatinine 0.79 (0.5-1.4) mg/dL Estim Creat Clear Calc 183.7 Estimated GFR > 60 Random Glucose 105 (60-115) mg/dL Calcium 9.5 D (8.4-10.2) mg/dL Magnesium (1.6-2.6) mg/dL Total Bilirubin 0.5 (0.0-1.0) mg/dL Direct Bilirubin < 0.2 (0.0-0.5) mg/dL AST 59 H (5-37) U/L ALT 128 H (0-40) U/L Alkaline Phosphatase 57 (39-117) U/L Troponin I High Sens < 3.5 (<3.5-35.0) ng/L Total Protein 7.1 (6.5-8.0) g/dL Albumin 4.3 (3.5-5.0) g/dL Lipase 31 (8-78) U/L COVID-19 (DUSTIN) (Negative) COVID-19 Clin Com 04/21/22 04/21/22 04/21/22 Range/Units 12:49 12:49 12:49 WBC (4.8-10.8) X10*3/uL RBC (4.60-5.80) X10*6/uL Hgb (14.0-18.0) g/dl Hct (42.0-52.0) % MCV (80.0-98.0) fL MCH (27.0-33.0) pg MCHC (31.0-36.0) g/dl RDW (11.0-16.0) % Plt Count (160-400) X10*3/uL MPV (9.4-12.4) fL Immature Gran % (Auto) (0.0-0.4) % Neut % (Auto) (45-73) % Lymph % (Auto) (20-40) % [place] % (Auto) (2-11) % Eos % (Auto) (0-4) % Baso % (Auto) (0-2) % Lymph # (Auto) (1.2-4.9) X10*3/uL [place] # (Auto) (0.1-1.2) X10*3/uL Eos # (Auto) (0.0-0.4) X10*3/uL Baso # (Auto) (0.0-0.2) X10*3/uL Abs Immat Gran (auto) (0.00-0.03) X10*3/uL Absolute Neuts (auto) (2.0-8.3) x10*3/uL Absolute Nucleated RBC (0.0-0.012) X10*3/uL Nucleated RBC % (auto) (0.0-0.2) /100WBC PT 10.9 (10.0-13.1) SEC INR 1.0 (0.9-1.1) D-Dimer High Sensitivty < 150 NG/ML Sodium (135-145) mmol/L Potassium (3.3-5.1) mmol/L Chloride (96-108) mmol/L Carbon Dioxide (22-29) mmol/L Anion Gap (12-20) BUN (9-16) mg/dL Creatinine (0.5-1.4) mg/dL Estim Creat Clear Calc Estimated GFR Random Glucose (60-115) mg/dL Calcium (8.4-10.2) mg/dL Magnesium 2.0 (1.6-2.6) mg/dL Total Bilirubin (0.0-1.0) mg/dL Direct Bilirubin (0.0-0.5) mg/dL AST (5-37) U/L ALT (0-40) U/L Alkaline Phosphatase (39-117) U/L Troponin I High Sens (<3.5-35.0) ng/L Total Protein (6.5-8.0) g/dL Albumin (3.5-5.0) g/dL Lipase (8-78) U/L COVID-19 (DUSTIN) Negative (Negative) COVID-19 Clin Com See Note Independent Interpretation I performed an independent interpretation of an: EKG and Plain X-Ray Interpretation: Independently reviewed the EKG which shows Sinus tachycardia with a rate of 101, normal [place], normal QRS, normal QT I independently reviewed the chest x-ray and agree with radiologist's report Radiology Impression Discussion of test interpretation with radiology: I have reviewed the radiologist's reading. Radiologist Impression: [address] [address] XRay Report Signed Patient: Tee Chen MR#: [id number] : 1990 Acct:[id number] Age/Sex: 31 / M ADM Date: 04/21/22 Loc: HO.ED Attending Dr: Ordering Physician: Tahmina Fuentes NP Date of Service: 04/21/22 Procedure(s): XR chest 2V Accession Number(s): [id number] cc: Tahmina Fuentes NP~ EXAMINATION: XR CHEST CLINICAL INFORMATION: Chest pain with shortness of breath COMPARISON: June 22, 2021 TECHNIQUE: 2 views of the chest were obtained. FINDINGS: No significant abnormality is noted involving the heart, lungs, mediastinum, bony thorax or soft tissues. XR/XR chest 2V IMPRESSION: No acute disease. Independent Historian Clinical information obtained from an independent historian. History obtained from or confirmed by: Parent Discharge Plan Discharge Clinical Impression: Chest pain, Alcohol use disorder, moderate, dependence Patient Disposition: Home, Self-Care Instructions: Chest Pain (DC), Abuse of Alcohol (ED) Additional Instructions: Your lab work, EKG and x-ray are all normal. Your COVID test is negative. Prescriptions: No Action hydrochlorothiazide 25 mg tablet 25 mg PO DAILY Qty: 90 8RF omeprazole 20 mg capsule,delayed release(DR/EC) 20 mg PO DAILY 90 Days Qty: 90 8RF alprazolam 1 mg tablet 1 mg PO TID PRN (Reason: anxiety) Qty: 90 5RF chlordiazepoxide HCl 25 mg capsule 25 mg PO Q6H PRN (Reason: alcohol withdrawal) Qty: 7 0RF thiamine HCl (vitamin B1) 100 mg tablet 100 mg PO DAILY Qty: 30 1RF folic acid 1 mg tablet 1 mg PO DAILY Qty: 30 1RF lisinopril 20 mg tablet 20 mg PO DAILY Qty: 90 8RF trazodone 50 mg tablet 50 mg PO BEDTIME PRN (Reason: sleep) Qty: 30 3RF lorazepam [Ativan] 1 mg tablet 1 mg PO TID PRN (Reason: alcohol withdrawal) Qty: 60 3RF lorazepam 1 mg tablet 1 mg PO Q6H PRN (Reason: alcohol withdrawal) Qty: 15 0RF ondansetron 4 mg tablet,disintegrating 4 mg PO Q8H PRN (Reason: nausea and vomiting) Qty: 20 0RF chlordiazepoxide HCl 25 mg capsule 25 mg PO Q6-8H PRN (Reason: alcohol withdrawal) Qty: 7 0RF albuterol sulfate 90 mcg/actuation HFA aerosol inhaler 2 puff PO Q6H PRN naltrexone 50 mg tablet 50 mg PO DAILY Qty: 30 2RF Referrals: Hansa Avelar CNP [Nurse Practitioner] - 1 week Interventions: ED Discharge Assessment Last Done: 04/21/22 13:45 Discharge Date/Time: 04/21/22 13:46
[2022-04-21 13:06] LABS: Prothrombin Time 10.9 SEC (10.0-13.1)
[2022-04-21 13:15] LABS: COVID-19 Test Negative (Negative); IDNOW Serial# 16C4AD1C
[2022-04-21 13:17] VITALS: BP 128/82; PULSE 69; RESP 16; TEMP 36.8; O2SAT 98
[2022-04-21 13:32] LABS: D Dimer High Sensitivity < 150 NG/ML
== END 2022-04-21 13:46 | disposition home or self-care (01) ==
PROVIDERS: Nurse Practitioner Family; Emergency Provider Emergency Medicine; PCP Internal Medicine
DX: R07.89 Other chest pain (principal); R06.02 Shortness of breath; R00.0 Tachycardia, unspecified; R20.0 Anesthesia of skin; F10.20 Alcohol dependence, uncomplicated; Y90.9 Presence of alcohol in blood, level not specified; Z20.822 Contact with and (suspected) exposure to COVID-19; Z20.828 Contact with and (suspected) exposure to other viral communicable diseases; Z79.899 Other long term (current) drug therapy
CPT/HCPCS: 36415; 71046; 80048; 80076; 83690; 83735; 84484; 85025; 85379; 85610; 87635; 93005; 99283; 99284

== ENCOUNTER 2022-08-05 11:58 | Outpatient (REF) | payer OTHER, SELFPAY | END 2022-08-05 11:59 | disposition home or self-care (01) | LOC: HO.LNP 11:58 | PROVIDERS: Visit Provider Nurse Practitioner Family | DX: Z13.89 Encounter for screening for other disorder (principal) ==

== ENCOUNTER 2022-08-05 12:07 | Outpatient (REF) | payer OTHER, SELFPAY ==
[2022-08-05 14:23] LABS: Appearance Urine Clear; Color Urine Yellow; Glucose Urine UA Negative (Negative); Leukocyte Esterase Urine Negative (Negative); Nitrite Urine Negative (Negative); PH 5.5 (5.0-9.0); Specific Gravity - Urine >= 1.030 (1.005-1.025); Urine Blood Negative (Negative); Urine Ketones Negative (Negative); Urine Protein Negative (Neg-Trace)
[2022-08-05 14:58] LABS: TSH reflex Free T4 4.02 uIU/mL (0.32-4.0)
[2022-08-05 14:59] LABS: Syphilis Screen Nonreactive (Nonreactive)
[2022-08-05 15:28] LABS: Free T4 (Free Thyroxine) 1.19 ng/dL (0.71-1.85)
[2022-08-05 15:50] LABS: CT PCR NOT DETECTED (Not Detect.); NG PCR NOT DETECTED (Not Detect.)
[2022-08-08 04:53] LABS: HBS Num1 10.97 mIU/mL (0-7.99); HBc Num1 0.06 S/CO (0.00-0.79); HBsAGNum1 0.29 S/CO (0.00-0.99); HIV AB/AG Nonreactive (Nonreactive); HIV Num 1 0.08 S/CO (0.00-0.99); Hepatitis A Antibody IgM 0.24 Index (0-0.79); Hepatitis B Core Antibody Nonreactive (Nonreactive); Hepatitis B Surface Antigen Negative (Negative); ~HepC Num1 0.07 S/CO (0.00-0.79); ~Hepatitis A Antibody IgM Nonreactive (Nonreactive); ~Hepatitis C Antibody Nonreactive (Nonreactive)
[2022-08-08 05:38] LABS: HBS Num2 10.42 mIU/mL (0-7.99); HBS Num3 10.71 mIU/mL (0-7.99); ~Hepatitis B Surface Antibody GRAYZONE (Nonreactive)
== END 2022-08-05 12:08 | disposition home or self-care (01) ==
LOC: HO.HMGCLDS 12:07
PROVIDERS: PCP Internal Medicine; Visit Provider Nurse Practitioner Family
DX: Z11.4 Encounter for screening for human immunodeficiency virus [HIV] (principal); Z20.2 Contact with and (suspected) exposure to infections with a predominantly sexual mode of transmission; E66.01 Morbid (severe) obesity due to excess calories; R30.0 Dysuria
CPT/HCPCS: 0353U; 81003; 84439; 84443; 86704; 86706; 86709; 86780; 86803; 87340; 87389

== ENCOUNTER 2022-08-30 15:31 | Emergency (ER) | payer OTHER, SELFPAY ==
--- NOTE | ~2022-08-30 | XR_ITS ---
EXAMINATION: XR CHEST CLINICAL INFORMATION: Dyspnea COMPARISON: 04/21/2022 TECHNIQUE: Frontal view of the chest was obtained. FINDINGS: No significant abnormality is noted involving the heart, lungs, mediastinum, bony thorax or soft tissues. XR/XR chest 1V IMPRESSION: Unremarkable examination.
--- NOTE | 2022-08-30 15:37 | ED.GENADULT ---
HPI - General Adult General Chief complaint: ETOH/Substance Use Stated complaint: Alcohol withdrawal/SOB/Dehydrated Time Seen by Provider: 08/30/22 16:06 Source: patient and family Mode of arrival: ambulatory History of Present Illness HPI narrative: 31-year-old male with history of hypertension and states that he has been struggling with alcohol over the past few years has recently been trying to taper his alcohol intake down and had plans to reach out to a detox center, outpatient, located in [place]. Patient states that he began feeling unwell this morning and so drink some origin and he states that his last drink was at noon. He denies any prior seizure-like activity from withdrawal. Related Data Previous Rx's Medication Instructions Recorded folic acid 1 mg tablet 1 mg PO DAILY #30 tabs 09/24/21 lisinopril 20 mg tablet 20 mg PO DAILY #90 tabs 09/24/21 thiamine HCl (vitamin B1) 100 mg 100 mg PO DAILY #30 tabs 09/24/21 tablet alprazolam 1 mg tablet 1 mg PO TID PRN anxiety #90 tabs 04/27/22 omeprazole 20 mg capsule,delayed 20 mg PO DAILY 90 days #90 caps 04/27/22 release hydrochlorothiazide 25 mg tablet 25 mg PO DAILY #90 tabs 05/10/22 lorazepam 1 mg tablet 1 mg PO Q6H PRN alcohol withdrawal 05/10/22 #15 tabs trazodone 50 mg tablet 50 mg PO BEDTIME PRN sleep #30 tabs 06/02/22 lorazepam 1 mg tablet (Ativan) 1 mg PO TID PRN alcohol withdrawal 08/15/22 #60 tabs Allergies Allergy/AdvReac Type Severity Reaction Status Date / Time No Known Allergies Allergy Verified 08/30/22 15:38 [No Known Allergies*] Review of Systems Review of Systems: Pertinent positives and negatives as stated in HPI [facility] Past Medical History Source: nursing notes reviewed Medical History Alcohol dependence Alcoholic hepatitis Anxiety Depression Hypertension Surgical History No history of previous surgery Family History Family History Mother No problems noted. Father No problems noted. Social History Social History Housing: Condominium Alcohol intake: current Alcohol intake frequency: 3 or more drinks per day Alcohol type: hard liquor Patient Tobacco Use Status: Current someday Tobacco user Smoked in Last 30 Days: Yes e-Cigarette/Vaping Use: Never Used Second Hand Smoke Exposure: No Use of substances other than those prescribed or required for medical reasons: No Substance Use Type: Marijuana Advance Directives: No Advance Directives Information Provided: Yes service: No Current occupational status: employed Cognitive needs: No Hearing needs: No Vision needs: No Physical Exam ED Vital Signs: Vital Signs - 24 hr 08/30/22 15:38 08/30/22 16:00 08/30/22 16:00 Temperature 97.0 F 98.6 F Pulse Rate 147 H 133 H 130 H Respiratory Rate 18 22 H 22 H Blood Pressure 167/99 H 156/96 H 155/94 H Pulse Oximetry 95 94 95 Oxygen Delivery Method Room Air Room Air Room Air 08/30/22 18:12 Temperature Pulse Rate 116 H Respiratory Rate 18 Blood Pressure 136/79 Pulse Oximetry 93 Oxygen Delivery Method Room Air BMI result Body Mass Index 34.9 VITAL SIGNS: Reviewed. GENERAL: Well developed, well nourished, in no acute distress. HEAD: Normocephalic/atraumatic EYES: PERRLA, EOMI EARS: Ext canals without abnormality NOSE: Nares patent bilateral OROPHARYNX: no oral lesions noted, posterior pharynx clear NECK: Supple, no adenopathy LUNGS: Normal breath sounds. No adventitious sounds or accessory muscle use. SpO2<95> CARDIOVASCULAR: Regular rate and rhythm without noted murmurs ABDOMEN: Soft, non-tender, non-distended with bowel sounds. MUSCULOSKELETAL: No tenderness, deformities, or effusions noted on gross inspection. EXTREMITIES: No cyanosis, clubbing or edema. SKIN: Inspection of the skin reveals no rashes NEUROLOGIC: Alert and oriented x 4. Strength and sensation to light touch were grossly intact x 4. Course Course Course Narrative: This is an RME: Additional HPI, ROS, PE not included below will be deferred to primary provider. Patient is a 31-year-old male with history of HTN, asthma, alcohol use disorder, alcoholic hepatitis, anxiety, and depression presenting with alcohol withdrawl. States last drink was noon today. Denies history of withdrawl seizures. Drinks gin, unsure how much he drinks daily. Denies drug use. Reports primary complaint is dyspnea. Skin noted to appear flushed, states has been told his thyroid levels have been elevated but is not on any thyroid medications. HR 150s in triage. Plan: EKG, labs including TSH, CXR Medications Administered Discontinued Medications Generic Name Dose Route Start Last Admin Trade Name Autumn PRN Reason Stop Dose Admin Sodium Chloride 1,000 mls @ 999 mls/hr 08/30/22 16:00 08/30/22 18:05 Ns IV 08/30/22 17:00 Infused .Q1H1M PRECIOUS Infusion Ondansetron HCl 4 mg 08/30/22 15:46 08/30/22 16:21 Ondansetron Hcl 4 Mg/2 Ml Vial IVPUSH 08/30/22 15:47 4 mg ONCE ONE Administration Medical Decision Making Medical Decision Making [facility] Narrative: 31-year-old male who is suffering from alcohol withdrawal and a component of dehydration, last drink was at noon, he is tachycardic and had 2 episodes of nonbloody nausea and vomiting while in the waiting room. He states he did take his blood pressure medication is otherwise feeling well and is motivated to detox. He denies any SI/HI. life skills coach did evaluate the patient who is declining detox services provided by us and continues to verbalize wanting to pursue the outpatient program through [place]. 1821: I reviewed all investigations and I have noted the elevation of the H/H which is likely consistent with patient's dehydration, he is now tolerating oral intake without difficulty and no further nausea or vomiting. Patient himself is requesting discharge to home and is been scored as a 2 on the CIWA scale. BAL is calculated well under 100 at this time and patient has a safe ride with his mother. Differential Diagnosis Please see the discussion above Lab Data Please see the discussion above 08/30/22 15:57 08/30/22 15:57 Labs: Lab Results 08/30/22 08/30/22 08/30/22 Range/Units 15:57 15:57 15:57 WBC 6.9 (4.8-10.8) X10*3/uL RBC 5.51 (4.60-5.80) X10*6/uL Hgb 18.1 H (14.0-18.0) g/dl Hct 52.3 H (42.0-52.0) % MCV 94.9 (80.0-98.0) fL MCH 32.8 (27.0-33.0) pg MCHC 34.6 (31.0-36.0) g/dl RDW 13.6 (11.0-16.0) % Plt Count 449 H (160-400) X10*3/uL MPV 8.3 L (9.4-12.4) fL Immature Gran % (Auto) 0.1 (0.0-0.4) % Neut % (Auto) 51.1 (45-73) % Lymph % (Auto) 36.6 (20-40) % [place] % (Auto) 10.7 (2-11) % Eos % (Auto) 0.1 (0-4) % Baso % (Auto) 1.4 (0-2) % Lymph # (Auto) 2.5 (1.2-4.9) X10*3/uL [place] # (Auto) 0.7 (0.1-1.2) X10*3/uL Eos # (Auto) 0.0 (0.0-0.4) X10*3/uL Baso # (Auto) 0.1 (0.0-0.2) X10*3/uL Abs Immat Gran (auto) 0.01 (0.00-0.03) X10*3/uL Absolute Neuts (auto) 3.5 (2.0-8.3) x10*3/uL Absolute Nucleated RBC 0.000 (0.0-0.012) X10*3/uL Nucleated RBC % (auto) 0.0 (0.0-0.2) /100WBC Sodium 139 (135-145) mmol/L Potassium 4.2 (3.3-5.1) mmol/L Chloride 97 (96-108) mmol/L Carbon Dioxide 22 (22-29) mmol/L Anion Gap 24 H (12-20) BUN 11 (9-16) mg/dL Creatinine 0.73 (0.5-1.4) mg/dL Estim Creat Clear Calc 191.2 Estimated GFR > 60 Random Glucose 108 (60-115) mg/dL Calcium 10.7 H D (8.4-10.2) mg/dL Total Bilirubin 0.8 (0.0-1.0) mg/dL AST 89 H (5-37) U/L ALT 150 H (0-40) U/L Alkaline Phosphatase 65 (39-117) U/L Troponin I High Sens < 2.7 (<3.5-35.0) ng/L Total Protein 8.0 (6.5-8.0) g/dL Albumin 4.7 (3.5-5.0) g/dL TSH 5.13 H (0.32-4.0) uIU/mL Free T4 1.01 (0.71-1.85) ng/dL Ethyl Alcohol 152 mg/dL Independent Interpretation I performed an independent interpretation of an: EKG Interpretation: Sinus tachycardia, HR-143, no STEMI, [place]/QRS/QTC is within normal limits. Radiology Impression Radiologist Impression: My interpretation is in agreement with radiology's impression. External Record Review External record reviewed: Prior outpatient labs Chronic Conditions Patient?s care impacted by: Hypertension Discharge Plan Discharge Clinical Impression: Alcohol intoxication, Alcohol use disorder, Dehydration Patient Disposition: Home, Self-Care Instructions: Dehydration (ED), Alcohol Intoxication (ED), Abuse of Alcohol (ED) Additional Instructions: 1. Resume all home medications as prescribed. 2. Please actively pursue the outpatient detox program. 3. Please do not hesitate to return to this emergency room if you require any further assistance from us. Prescriptions: No Action thiamine HCl (vitamin B1) 100 mg tablet 100 mg PO DAILY Qty: 30 1RF folic acid 1 mg tablet 1 mg PO DAILY Qty: 30 1RF lisinopril 20 mg tablet 20 mg PO DAILY Qty: 90 8RF omeprazole 20 mg capsule,delayed release(DR/EC) 20 mg PO DAILY 90 Days Qty: 90 8RF alprazolam 1 mg tablet 1 mg PO TID PRN (Reason: anxiety) Qty: 90 5RF lorazepam 1 mg tablet 1 mg PO Q6H PRN (Reason: alcohol withdrawal) Qty: 15 0RF hydrochlorothiazide 25 mg tablet 25 mg PO DAILY Qty: 90 8RF trazodone 50 mg tablet 50 mg PO BEDTIME PRN (Reason: sleep) Qty: 30 3RF lorazepam [Ativan] 1 mg tablet 1 mg PO TID PRN (Reason: alcohol withdrawal) Qty: 60 3RF Referrals: Doni Cazares MD [Primary Care Provider] -
[2022-08-30 15:38] VITALS: BP 167/99; PULSE 147; RESP 18; TEMP 36.1; O2SAT 95; BMI 34.9
--- NOTE | 2022-08-30 15:41 | ECG_ITS ---
Test Reason : sob Blood Pressure : / mmHG Vent. Rate : 143 BPM Atrial Rate : 143 BPM P-R Int : 144 ms QRS Dur : 082 ms QT Int : 268 ms P-R-T Axes : 053 008 063 degrees QTc Int : 413 ms Sinus tachycardia Possible Left atrial enlargement Nonspecific ST abnormality Abnormal ECG When compared with ECG of 21-APR-2022 10:31, No significant change was found Referred By: Vicky Brooks Electronically Signed By:Dilip Reyes
[2022-08-30 16:00] VITALS: BP 155/94; BP 156/96; PULSE 130; PULSE 133; RESP 22; TEMP 37; O2SAT 94; O2SAT 95
[2022-08-30 16:02] LABS: MANUAL DIFF FLAG NO
[2022-08-30 16:16] LABS: Basophils Absolute Auto 0.1 X10*3/uL (0.0-0.2); Basophils Percent Auto 1.4 % (0-2); Eosinophils Percent Auto 0.1 % (0-4); Hematocrit 52.3 % (42.0-52.0); Hemoglobin 18.1 g/dl (14.0-18.0); Imm Gran Abs Auto 0.01 X10*3/uL (0.00-0.03); Imm Gran Pct Auto 0.1 % (0.0-0.4); Lymphocytes Absolute Auto 2.5 X10*3/uL (1.2-4.9); Lymphocytes Percent Auto 36.6 % (20-40); Mean Corpuscular HGB Conc 34.6 g/dl (31.0-36.0); Mean Corpuscular Hemoglobin 32.8 pg (27.0-33.0); Mean Corpuscular Volume 94.9 fL (80.0-98.0); Mean Platelet Volume 8.3 fL (9.4-12.4); Monocytes Absolute Auto 0.7 X10*3/uL (0.1-1.2); Monocytes Percent Auto 10.7 % (2-11); Neutrophils Absolute Auto 3.5 x10*3/uL (2.0-8.3); Neutrophils Percent Auto 51.1 % (45-73); Platelet Count 449 X10*3/uL (160-400); Red Blood Count 5.51 X10*6/uL (4.60-5.80); Red Cell Distribution Width 13.6 % (11.0-16.0); White Blood Count 6.9 X10*3/uL (4.8-10.8)
[2022-08-30] MEDS: 0.9 % Sodium Chloride 1,000 ML 999 ML IV (16:16)
[2022-08-30] MEDS: ondansetron HCL 4 MG/2 ML VIAL IVPUSH (16:21)
[2022-08-30 16:34] LABS: Alanine Aminotransferase 150 U/L (0-40); Albumin Level 4.7 g/dL (3.5-5.0); Alkaline Phosphatase 65 U/L (39-117); Anion Gap 24 (12-20); Aspartate Amino Transferase 89 U/L (5-37); Bilirubin Total 0.8 mg/dL (0.0-1.0); Blood Urea Nitrogen 11 mg/dL (9-16); Calcium 10.7 mg/dL (8.4-10.2); Carbon Dioxide 22 mmol/L (22-29); Chloride 97 mmol/L (96-108); Creatinine Clr Calc Pharmacy 191.2; Estimated Glomerular Filt Rate > 60; Ethanol 152 mg/dL; Glucose Random 108 mg/dL (60-115); Potassium 4.2 mmol/L (3.3-5.1); Sodium 139 mmol/L (135-145)
[2022-08-30 16:35] LABS: Troponin-I High Sensitivity < 2.7 ng/L (<3.5-35.0)
--- NOTE | 2022-08-30 16:37 | PC.NURSE ---
pt a&o x4, pleasant, calm and cooperative. sts he has been drinking the last 3 days due to relationship issues. pt reports drinking 3 drinks a day, the last 3 days that consists of half gin and half water. pt CIWA 1, provider aware. pt is tachy and has minimal hand tremors. denies pain. medicated per mar. pt initially came in due to withdrawal symptoms, sob, abdominal pain, nausea/vomiting but all has since subsided. sts he is looking into an outpatient detox facility in [place] for help. IV placed, labs drawn, pt placed on monitor, and changed over to hospital attire. currently resting quietly on stretcher in no apparent distress. tm
[2022-08-30 16:52] LABS: TSH reflex Free T4 5.13 uIU/mL (0.32-4.0)
[2022-08-30 17:32] LABS: Free T4 (Free Thyroxine) 1.01 ng/dL (0.71-1.85)
--- NOTE | 2022-08-30 17:51 | MHC.RECOVSUP ---
Met with pt in ED14 who is here for ETOH. Pt informs he has been drinking about 1/2 a liter of Gin a day and that he has reduced his use. Pt informs he is planning to go to an outpatient treatment in [place] and is not interested in ATS at this time. Pt was provided recovery resources and has no other questions or concerns at this time. Provider aware.
[2022-08-30 18:12] VITALS: BP 136/79; PULSE 116; RESP 18; O2SAT 93
--- NOTE | 2022-08-30 18:26 | PC.NURSE ---
pt RORY a 2 and is requesting to go home, provider aware
[2022-08-30 18:32] VITALS: BP 122/74; PULSE 109; RESP 18; TEMP 36.9; O2SAT 95
--- NOTE | 2022-08-30 18:52 | MHC.RECOVSUP ---
? Reason for consult:ETOH o? Current location:ED14? o? Identified substance use concern:? -? Support ? Intervention: o? Community resources provided ? Plan:Out Patient at [facility] ? Additional information:RC met with this pt and discussed treatment options, pt stated that he's enrolled at [facility] for outpatient treatment.
== END 2022-08-30 18:35 | disposition home or self-care (01) ==
PROVIDERS: Registered Nurse Emergency; Emergency Provider Student in an Organized Health Care Education/Training Program; PCP Internal Medicine
DX: F10.239 Alcohol dependence with withdrawal, unspecified (principal); Y90.6 Blood alcohol level of 120-199 mg/100 ml; R00.0 Tachycardia, unspecified; R06.02 Shortness of breath; E86.0 Dehydration; Z79.899 Other long term (current) drug therapy
CPT/HCPCS: 36415; 71045; 80053; 80307; 84439; 84443; 84484; 85025; 93005; 96361; 96374; 99284; 99285; J2405

== ENCOUNTER 2022-09-13 10:51 | Outpatient (AMB) | payer OTHER, SELFPAY ==
--- NOTE | 2022-09-13 10:52 | MHC.PC.OV ---
Vital Signs 09/13/22 10:55 Height 5 ft 11 in Weight 285 lb BMI 39.7 BP 130/76 Blood Pressure Location Lt brachial Position Sitting Pulse 110 H Pulse Source Pulse Oximeter Pulse Oximetry (%) 96 Oxygen Delivery Method Room Air Intake Visit Reasons: discuss medical concerns Intake Note: Patient is here to follow up on HTN, Asthma, Depression and Anxiety. 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 Soakers Supervisor: Not Required per policy Accompanied by: Self / Same As Patient Allergies No Known Allergies [No Known Allergies*] Allergy (Verified 09/13/22 10:55) Medication List - Last Reconciled 09/13/22 by Doni Cazares MD alprazolam 1 mg PO TID PRN folic acid 1 mg PO DAILY hydrochlorothiazide 25 mg PO DAILY lisinopril 20 mg PO DAILY lorazepam (Ativan) 1 mg PO TID PRN omeprazole 20 mg PO DAILY 90 days thiamine HCl (vitamin B1) 100 mg PO DAILY trazodone 50 mg PO BEDTIME PRN Tobacco use date assessed: 09/13/22 Dental Screening Dental Screen Date: 09/13/22 Did you have a dental visit in the last 12 months?: Yes Did you have a dental problem in the last 6 months where you did not have access to dental care?: No Was dental information given to patient?: Patient has dentist HPI discuss medical concerns HPI Details TSH high x 2; fatigue PFSH Medical History Alcohol dependence Alcoholic hepatitis Anxiety Depression Hypertension Surgical History No history of previous surgery Family History (Updated 09/13/22 @ 10:53 by JANAY Liriano) Mother No problems noted. Father No problems noted. Other Mental health disorder Substance use disorder Social History (Updated 09/13/22 @ 11:00 by JANAY Liriano) Housing: Condominium Alcohol intake: current Alcohol intake frequency: a few times a week Alcohol type: hard liquor Patient Tobacco Use Status: Current everyday Tobacco user Tobacco use type: Cigarette Cigarettes Per Day: 2 e-Cigarette/Vaping Use: Never Used Second Hand Smoke Exposure: Yes Substance Use Type: Marijuana service: No Current occupational status: employed Cognitive needs: No Hearing needs: No Vision needs: No Questionnaire PHQ-9 Over the last 2 weeks, how often have you been bothered by any of the following problems? 1. Little interest or pleasure in doing things: several days 2. Feeling down, depressed, or hopeless: several days 3. Trouble falling or staying asleep, or sleeping too much: several days 4. Feeling tired or having little energy: more than half the days 5. Poor appetite or overeating: more than half the days 6. Feeling bad about yourself - or that you are a failure or have let yourself or your family down: not at all 7. Trouble concentrating on things, such as reading the newspaper or watching television: not at all 8. Moving or speaking so slowly that other people could have noticed. Or the opposite - being so fidgety or restless that you have been moving around a lot more than usual: not at all 9. Thoughts that you would be better off or of hurting yourself in some way: not at all Total score: 7 Source: Developed by Drs. Julio C Aguilar, Caitlyn Jimenez, Francisco Javier Olson and colleagues, with an educational miguel from [employer]. Thrive Questionnaire Date Thrive assessed: 09/13/22 I am a: Patient What is your living situation today?: I have a steady place to live Within the past 12 months, did the food you bought not last and you didn't have the money to get more?: Never true Within the past 12 months, did you worry whether your food would run out before you got money to buy more?: Never true Do you have trouble paying for medicines?: No Do you have trouble getting transportation to medical appointments?: No Do you have trouble paying your heating and electricity bill?: No Do you have trouble taking care of your child, family member or friend?: No Do you have trouble with day-to-day activities such as bathing, preparing meals, shopping, managing finances, etc.?: No Are you currently unemployed and looking for a job?: No Are you interested in more education?: No Currently or been in a relationship where the following occur: no concerns reported AUDIT C Alcohol Use Questionnaire (AUDIT-C) 1. How often do you have a drink containing alcohol?: 2-3 times a week 2. How many drinks containing alcohol do you have on a typical day when you are drinking?: 1 or 2 Total Score: 3 ARNALDO-7 AMB Questionnaire ARNALDO-7 Date ARNALDO - 7 assessed: 09/13/22 Feeling nervous, anxious, or on edge: 3 = Nearly every day Not being able to stop or control worryin = Nearly every day Worrying too much about different things: 3 = Nearly every day Trouble relaxin = Nearly every day Being so restless that it is hard to sit still: 1 = Several days Becoming easily annoyed or irritable: 2 = More than half the days Feeling afraid as if something awful might happen: 3 = Nearly every day Total ARNALDO-7 score (0-4 normal; 5-9 mild; 10-14 moderate; 15-21 severe): 18 Source: Developed by Drs. Julio C Aguilar, Caitlyn Jimenez, Francisco Javier Olson and colleagues, with an educational miguel from [employer]. Review of Systems Const Denies chills, Denies headache(s) and Denies weight loss ENT Denies headache(s) Card Denies chest pain, Denies syncope, Denies irregular heart rhythm and Denies dyspnea Resp Denies chest congestion, Denies cough and Denies dyspnea GI Denies abdominal pain, Denies change in stool character, Denies nausea and Denies vomiting Musc Denies deformity and Denies joint swelling Neuro Denies syncope and Denies headache(s) Physical exam (Primary Care) Vital Signs: Last Vital Signs Pulse 110 H 09/13/22 10:55 BP 130/76 09/13/22 10:55 Pulse Ox 96 09/13/22 10:55 Oxygen Delivery Method Room Air 09/13/22 10:55 BMI result Body Mass Index 39.7 Tobacco/Smoking Status: Tobacco use Status Tobacco use date assessed 09/13/22 09/13/22 11:02 Patient Tobacco Use Status Current everyday Tobacco 09/13/22 11:02 Tobacco use type Cigarette 09/13/22 11:02 e-Cigarette/Vaping Use Never Used 09/13/22 11:02 PHQ-9: PHQ-9 Score PHQ-9: Total score 7 09/13/22 11:02 Thrive Assessment: Date of Thrive Assessment Date Thrive assessed 09/13/22 09/13/22 11:02 Currently or been in a relationship where the following occur: no concerns reported Const General: cooperative, healthy appearing and no acute distress Resp Effort & Inspection: normal respiratory effort Auscultation: clear to auscultation bilaterally Percussion: percussion normal Cardio Jugular venous distension: no JVD GI Inspection: Yes normal to inspection Assessment and Plan Assessment & Plan (1) Hypothyroidism (acquired): Code(s): E03.9 - Hypothyroidism, unspecified Plan: rx begun Orders: Orders Thyroid Stimulating Hormone Today E03.9 - Hypothyroidism, unspecified Medications: New levothyroxine 75 mcg PO DAILY 60 caps 3RF Refilled alprazolam 1 mg PO TID PRN 90 tabs 5RF anxiety Coding Level of Care Code Est Pt Level 3 (37284) Diagnoses Hypothyroidism (acquired) E03.9
[2022-09-13 10:55] VITALS: BP 130/76; PULSE 110; O2SAT 96; BMI 39.7
== END 2022-09-13 11:13 | disposition home or self-care (01) ==
PROVIDERS: PCP Internal Medicine; Visit Provider Internal Medicine
DX: E03.9 Hypothyroidism, unspecified (principal)
CPT/HCPCS: 99213

== ENCOUNTER 2022-10-12 13:02 | Outpatient (AMB) | payer OTHER, SELFPAY ==
[2022-10-12 13:05] VITALS: BP 100/62; PULSE 88; O2SAT 98; BMI 40.2
--- NOTE | 2022-10-12 13:05 | A.OFFPC_ITS ---
Vital Signs 10/12/22 13:05 Height 5 ft 11 in Weight 288 lb 8 oz BMI 40.2 BP 100/62 Blood Pressure Location Lt brachial Position Sitting Pulse 88 Pulse Source Pulse Oximeter Pulse Oximetry (%) 98 Oxygen Delivery Method Room Air Intake Visit Reasons: PE Intake Note: Patient is here today for a physical. Real Estate Paralegal Required: No Electronic News Gathering Editor: Not Required per policy Accompanied by: Self / Same As Patient Allergies No Known Allergies [No Known Allergies*] Allergy (Verified 10/12/22 13:05) Medication List - Last Reconciled 10/12/22 by Doni Cazares MD albuterol sulfate 90 mcg/actuation 2 puffs PO Q6H PRN alprazolam 1 mg PO TID PRN folic acid 1 mg PO DAILY hydrochlorothiazide 25 mg PO DAILY levothyroxine 75 mcg PO DAILY lisinopril 20 mg PO DAILY lorazepam (Ativan) 1 mg PO TID PRN omeprazole 20 mg PO DAILY 90 days thiamine HCl (vitamin B1) 100 mg PO DAILY trazodone 50 mg PO BEDTIME PRN Tobacco use date assessed: 10/12/22 HPI PE HPI Details hypertension and hypothyroidism; alcoholism and depression; still drinks and smokes [facility] Medical History Alcohol dependence Alcoholic hepatitis Anxiety Depression Hypertension Surgical History No history of previous surgery Family History Mother No problems noted. Father No problems noted. Other Mental health disorder Substance use disorder Social History Housing: Condominium Alcohol intake: current Alcohol intake frequency: a few times a week Alcohol type: hard liquor Patient Tobacco Use Status: Current everyday Tobacco user Tobacco use type: Cigarette Cigarettes Per Day: 3 e-Cigarette/Vaping Use: Never Used Second Hand Smoke Exposure: Yes Substance Use Type: Marijuana service: No Current occupational status: employed Cognitive needs: No Hearing needs: No Vision needs: No Questionnaire Thrive Questionnaire Date Thrive assessed: 09/13/22 ARNALDO-7 AMB Questionnaire ARNALDO-7 Date ARNALDO - 7 assessed: 09/13/22 Source: Developed by Drs. Julio C Aguilar, Caitlyn Jimenez, Francisco Javier Olson and colleagues, with an educational miguel from [employer]. Review of Systems Const Denies chills, Denies fatigue, Denies headache(s) and Denies weight loss Eyes Denies change in vision, Denies diplopia and Denies eye pain ENT Denies vertigo, Denies dizziness, Denies headache(s) and Denies nasal discharge Card Denies chest pain, Denies rapid heart rate and Denies dyspnea on exertion Resp Denies chest congestion, Denies cough, Denies pain with cough and Denies dyspnea on exertion GI Denies abdominal pain, Denies hematochezia and Denies change in bowel habits Musc Denies myalgias, Denies arthralgias and Denies joint swelling Skin/Breast Denies lesions and Denies unusual bruising Neuro Denies vertigo, Denies dizziness, Denies headache(s) and Denies focal weakness Endo Denies fatigue Physical exam (Primary Care) Vital Signs: Last Vital Signs Pulse 88 10/12/22 13:05 BP 100/62 10/12/22 13:05 Pulse Ox 98 10/12/22 13:05 Oxygen Delivery Method Room Air 10/12/22 13:05 BMI result Body Mass Index 40.2 morbid obesity BMI Assessment/Plan discussion: High BMI High, discussed plan: lifestyle, weight reduction and dietary Tobacco/Smoking Status: Tobacco use Status Tobacco use date assessed 10/12/22 10/12/22 13:09 Patient Tobacco Use Status Current everyday Tobacco 10/12/22 13:09 Tobacco use type Cigarette 10/12/22 13:09 e-Cigarette/Vaping Use Never Used 10/12/22 13:09 Are you ready to quit: No CPT code: 72342 - 4-10 Minutes Thrive Assessment: Date of Thrive Assessment Date Thrive assessed 09/13/22 10/12/22 13:09 Const General: cooperative, healthy appearing and no acute distress Orientation/consciousness: oriented to person, oriented to place and oriented to time HENMT Head: Yes normal to inspection, Yes normocephalic and Yes atraumatic Mouth: Normal oral and palatal mucosa present and tongue normal Throat: Yes posterior oropharynx normal and Yes uvula midline Eyes General: appearance normal, both eyes and all related structures Neck Neck: Yes normal visual inspection, Yes full ROM and Yes no lymphadenopathy Thyroid: Thyroid normal Carotids: normal carotid upstroke Chest Chest palpation & inspection: normal inspection of the chest Resp Effort & Inspection: normal respiratory effort and able to speak in complete sentences Auscultation: clear to auscultation bilaterally Cardio Jugular venous distension: no JVD Palpation: normal PMI Rate: regular rate Rhythm: regular rhythm Heart sounds: S1 normal heart sound present and S2 normal heart sound present GI Inspection: Yes normal to inspection Palpation (GI): Soft to palpation and No hepatosplenomegaly present Auscultation: normal bowel sounds General: Yes no CVA tenderness Back/Spine/Pelvis Back: no CVA tenderness Skin General skin exam: no rashes or lesions noted Neuro General: oriented to person, oriented to place and oriented to time Extrem General: Yes normal to inspection and Yes full ROM Assessment and Plan Assessment & Plan (1) Physical exam: Code(s): Z00.00 - Encounter for general adult medical examination without abnormal findings Plan: do labs (2) Hypertension: Code(s): I10 - Essential (primary) hypertension Plan: stable; same rx (3) Hypothyroidism (acquired): Code(s): E03.9 - Hypothyroidism, unspecified Plan: adjust dose (4) Morbid obesity: Code(s): E66.01 - Morbid (severe) obesity due to excess calories Plan: as above (5) Alcohol use disorder, moderate, dependence: Code(s): F10.20 - Alcohol dependence, uncomplicated Plan: clinic Orders: Orders Thyroid Stimulating Hormone Today E03.9 - Hypothyroidism, unspecified Medications: New levothyroxine 88 mcg PO DAILY 90 tabs 3RF Discontinued levothyroxine Discontinued Reason: None 75 mcg PO DAILY 60 caps 3RF Coding Level of Care Code Est Pt Prev Care 18-39y(23293) Diagnoses Physical exam Z00.00 Hypertension I10 Hypothyroidism (acquired) E03.9 Morbid obesity E66.01 Alcohol use disorder, moderate, dependence F10.20 Additional Codes Vital Signs *Quality* - CPT code: 88480 - 4-10 Minutes ([id number])
== END 2022-10-12 14:00 | disposition home or self-care (01) ==
PROVIDERS: PCP Internal Medicine; Visit Provider Internal Medicine
DX: Z00.00 Encounter for general adult medical examination without abnormal findings (principal); E66.01 Morbid (severe) obesity due to excess calories; Z68.41 Body mass index [BMI] 40.0-44.9, adult; I10 Essential (primary) hypertension; E03.9 Hypothyroidism, unspecified; F10.20 Alcohol dependence, uncomplicated
CPT/HCPCS: 99395

== ENCOUNTER 2023-04-28 12:43 | Outpatient (AMB) | payer OTHER, SELFPAY ==
[2023-04-28 12:48] VITALS: BP 160/100; PULSE 100; O2SAT 98; BMI 41.1
--- NOTE | 2023-04-28 12:48 | MHC.PC.OV ---
Vital Signs 04/28/23 12:48 Height 5 ft 11 in Weight 295 lb BMI 41.1 BP 160/100 H Blood Pressure Location Lt brachial Position Sitting Pulse 100 Pulse Source Pulse Oximeter Pulse Oximetry (%) 98 Oxygen Delivery Method Room Air Intake Visit Reasons: PE (lose weight and hypo thyroid) Cartographic Technician Required: No Director Of Emergency Nursing: Not Required per policy Accompanied by: Self / Same As Patient Allergies No Known Allergies [No Known Allergies*] Allergy (Verified 04/28/23 12:48) Medication List - Last Reconciled 04/28/23 by Doni Cazares MD albuterol sulfate 90 mcg/actuation 2 puffs PO Q6H PRN alprazolam 1 mg PO TID PRN azithromycin take 500 mg today (day 1), then 250 mg for 4 days (days 2-5) PO folic acid 1 mg PO DAILY hydrochlorothiazide 25 mg PO DAILY levothyroxine 88 mcg PO DAILY lisinopril 20 mg PO DAILY lorazepam (Ativan) 1 mg PO TID PRN omeprazole 20 mg PO DAILY 90 days thiamine HCl (vitamin B1) 100 mg PO DAILY trazodone 50 mg PO BEDTIME PRN Tobacco use date assessed: 04/28/23 Dental Screening Dental Screen Date: 04/28/23 Did you have a dental visit in the last 12 months?: Yes Did you have a dental problem in the last 6 months where you did not have access to dental care?: No Was dental information given to patient?: Patient has dentist HPI PE (lose weight and hypo thyroid) HPI Details HTN and hypothyroidism on rx PFSH Medical History Alcohol dependence Alcoholic hepatitis Anxiety Depression Hypertension Surgical History No history of previous surgery Family History Mother No problems noted. Father No problems noted. Other Mental health disorder Substance use disorder Social History Housing: Condominium Alcohol intake: current Alcohol intake frequency: a few times a week Alcohol type: hard liquor Patient Tobacco Use Status: Current everyday Tobacco user Tobacco use type: Cigarette Cigarettes Per Day: 3 e-Cigarette/Vaping Use: Never Used Second Hand Smoke Exposure: Yes Substance Use Type: Marijuana service: No Current occupational status: employed Cognitive needs: No Hearing needs: No Vision needs: No Questionnaire PHQ-9 Over the last 2 weeks, how often have you been bothered by any of the following problems? 1. Little interest or pleasure in doing things: several days 2. Feeling down, depressed, or hopeless: several days 3. Trouble falling or staying asleep, or sleeping too much: several days 4. Feeling tired or having little energy: more than half the days 5. Poor appetite or overeating: more than half the days 6. Feeling bad about yourself - or that you are a failure or have let yourself or your family down: not at all 7. Trouble concentrating on things, such as reading the newspaper or watching television: not at all 8. Moving or speaking so slowly that other people could have noticed. Or the opposite - being so fidgety or restless that you have been moving around a lot more than usual: not at all 9. Thoughts that you would be better off or of hurting yourself in some way: not at all Total score: 7 Depression Screening Interpretation: Negative Depression Screening Done: Yes 60589 - PHQ-9 Billing: Yes Source: Developed by Drs. Julio C Aguilar, Caitlyn Jimenez, Francisco Javier Olson and colleagues, with an educational miguel from [employer]. Thrive Questionnaire Date Thrive assessed: 04/28/23 I am a: Patient What is your living situation today?: I have a steady place to live Within the past 12 months, did the food you bought not last and you didn't have the money to get more?: Never true Within the past 12 months, did you worry whether your food would run out before you got money to buy more?: Never true Do you have trouble paying for medicines?: No Do you have trouble getting transportation to medical appointments?: No Do you have trouble paying your heating and electricity bill?: No Do you have trouble taking care of your child, family member or friend?: No Do you have trouble with day-to-day activities such as bathing, preparing meals, shopping, managing finances, etc.?: No Are you currently unemployed and looking for a job?: No Are you interested in more education?: No Please select the resources that you would like help with: None THRIVE Score: 0 AUDIT C Alcohol Use Questionnaire (AUDIT-C) 1. How often do you have a drink containing alcohol?: 2-3 times a week 2. How many drinks containing alcohol do you have on a typical day when you are drinking?: 1 or 2 Total Score: 3 ARNALDO-7 AMB Questionnaire ARNALDO-7 Date ARNALDO - 7 assessed: 04/28/23 Feeling nervous, anxious, or on edge: 0 = Not at all Not being able to stop or control worryin = Not at all Worrying too much about different things: 0 = Not at all Trouble relaxin = Not at all Being so restless that it is hard to sit still: 0 = Not at all Becoming easily annoyed or irritable: 0 = Not at all Feeling afraid as if something awful might happen: 0 = Not at all Total ARNALDO-7 score (0-4 normal; 5-9 mild; 10-14 moderate; 15-21 severe): 0 Source: Developed by Drs. Julio C Aguilar, Caitlyn Jimenez, Francisco Javier Olson and colleagues, with an educational miguel from [employer]. Review of Systems Const Denies chills, Denies fatigue, Denies headache(s) and Denies weight loss Eyes Denies change in vision, Denies diplopia and Denies eye pain ENT Denies vertigo, Denies dizziness, Denies headache(s) and Denies nasal discharge Card Denies chest pain, Denies rapid heart rate and Denies dyspnea on exertion Resp Denies chest congestion, Denies cough, Denies pain with cough and Denies dyspnea on exertion GI Denies abdominal pain, Denies hematochezia and Denies change in bowel habits Musc Denies myalgias, Denies arthralgias and Denies joint swelling Skin/Breast Denies lesions and Denies unusual bruising Neuro Denies vertigo, Denies dizziness, Denies headache(s) and Denies focal weakness Endo Denies fatigue Physical exam (Primary Care) Vital Signs: Last Vital Signs Pulse 100 04/28/23 12:48 BP 160/100 H 04/28/23 12:48 Pulse Ox 98 04/28/23 12:48 Oxygen Delivery Method Room Air 04/28/23 12:48 BMI result Body Mass Index 41.1 Tobacco/Smoking Status: Tobacco use Status Tobacco use date assessed 04/28/23 04/28/23 12:53 Patient Tobacco Use Status Current everyday Tobacco 04/28/23 12:53 Tobacco use type Cigarette 04/28/23 12:53 e-Cigarette/Vaping Use Never Used 04/28/23 12:53 PHQ-9: PHQ-9 Score PHQ-9: Total score 7 04/28/23 12:53 Depression Screening Interpretation: Negative Thrive Assessment: Date of Thrive Assessment Date Thrive assessed 04/28/23 04/28/23 12:53 Const General: cooperative, healthy appearing and no acute distress Orientation/consciousness: oriented to person, oriented to place and oriented to time HENMT Head: Yes normal to inspection, Yes normocephalic and Yes atraumatic Mouth: Normal oral and palatal mucosa present and tongue normal Throat: Yes posterior oropharynx normal and Yes uvula midline Eyes General: appearance normal, both eyes and all related structures Neck Neck: Yes normal visual inspection, Yes full ROM and Yes no lymphadenopathy Thyroid: Thyroid normal Carotids: normal carotid upstroke Chest Chest palpation & inspection: normal inspection of the chest Resp Effort & Inspection: normal respiratory effort and able to speak in complete sentences Auscultation: clear to auscultation bilaterally Cardio Jugular venous distension: no JVD Palpation: normal PMI Rate: regular rate Rhythm: regular rhythm Heart sounds: S1 normal heart sound present and S2 normal heart sound present GI Inspection: Yes normal to inspection Palpation (GI): Soft to palpation and No hepatosplenomegaly present Auscultation: normal bowel sounds General: Yes no CVA tenderness Back/Spine/Pelvis Back: no CVA tenderness Skin General skin exam: no rashes or lesions noted Neuro General: oriented to person, oriented to place and oriented to time Extrem General: Yes normal to inspection and Yes full ROM Assessment and Plan Assessment & Plan (1) Physical exam: Code(s): Z00.00 - Encounter for general adult medical examination without abnormal findings Plan: stable; do labs (2) Hypertension: Code(s): I10 - Essential (primary) hypertension Plan: f/u 2 weeks (3) Hypothyroidism (acquired): Code(s): E03.9 - Hypothyroidism, unspecified Plan: stable; do labs Orders: Orders Complete Blood Count Auto Diff Today D64.9 - Anemia, unspecified Comprehensive [place]. Panel Fast Today N28.9 - Disorder of kidney and ureter, unspecified Thyroid Stimulating Hormone Today E03.9 - Hypothyroidism, unspecified Lipid Panel Today E78.5 - Hyperlipidemia, unspecified Coding Level of Care Code Est Pt Prev Care 18-39y(93562) Diagnoses Physical exam Z00.00 Hypertension I10 Hypothyroidism (acquired) E03.9
== END 2023-04-28 13:06 | disposition home or self-care (01) ==
PROVIDERS: PCP Internal Medicine; Visit Provider Internal Medicine
DX: Z00.00 Encounter for general adult medical examination without abnormal findings (principal); I10 Essential (primary) hypertension; E03.9 Hypothyroidism, unspecified
CPT/HCPCS: 99395

== ENCOUNTER 2023-05-08 10:52 | Outpatient (REF) | payer OTHER, SELFPAY ==
[2023-05-08 11:09] LABS: MANUAL DIFF FLAG NO
[2023-05-08 12:05] LABS: Basophils Absolute Auto 0.1 X10*3/uL (0.0-0.2); Basophils Percent Auto 1.1 % (0-2); Eosinophils Absolute Auto 0.1 X10*3/uL (0.0-0.4); Hematocrit 49.3 % (42.0-52.0); Hemoglobin 16.5 g/dl (14.0-18.0); Imm Gran Pct Auto 1.1 % (0.0-0.4); Lymphocytes Absolute Auto 2.3 X10*3/uL (1.2-4.9); Lymphocytes Percent Auto 24.5 % (20-40); Mean Corpuscular HGB Conc 33.5 g/dl (31.0-36.0); Mean Corpuscular Hemoglobin 33.7 pg (27.0-33.0); Mean Corpuscular Volume 100.8 fL (80.0-98.0); Mean Platelet Volume 9.3 fL (9.4-12.4); Monocytes Percent Auto 10.9 % (2-11); Neutrophils Absolute Auto 5.7 x10*3/uL (2.0-8.3); Neutrophils Percent Auto 61.4 % (45-73); Platelet Count 355 X10*3/uL (160-400); Red Blood Count 4.89 X10*6/uL (4.60-5.80); Red Cell Distribution Width 13.1 % (11.0-16.0); White Blood Count 9.3 X10*3/uL (4.8-10.8)
[2023-05-08 13:03] LABS: Alanine Aminotransferase 274 U/L (0-40); Albumin Level 4.5 g/dL (3.5-5.0); Alkaline Phosphatase 61 U/L (39-117); Anion Gap 12 (12-20); Aspartate Amino Transferase 132 U/L (5-37); Bilirubin Total 0.7 mg/dL (0.0-1.0); Blood Urea Nitrogen 13 mg/dL (9-16); Calcium 9.7 mg/dL (8.4-10.2); Carbon Dioxide 26 mmol/L (22-29); Chloride 103 mmol/L (96-108); Cholesterol 207 mg/dL (<200); Estimated Glomerular Filt Rate > 60; Glucose Fasting 84 mg/dL (60-99); HDL Cholesterol 51 mg/dL (>40); LDL Cholesterol Calculated 143 mg/dL (<100); Potassium 3.8 mmol/L (3.3-5.1); Sodium 137 mmol/L (135-145); Total Protein 7.6 g/dL (6.5-8.0); Triglycerides 69 mg/dL (<150)
[2023-05-08 13:18] LABS: Thyroid Stimulating Hormone 2.17 uIU/mL (0.32-4.0)
== END 2023-05-08 10:53 | disposition home or self-care (01) ==
LOC: HO.LAB 10:52
PROVIDERS: PCP Internal Medicine; Visit Provider Internal Medicine
DX: E03.9 Hypothyroidism, unspecified (principal); E78.5 Hyperlipidemia, unspecified; N28.9 Disorder of kidney and ureter, unspecified; D64.9 Anemia, unspecified
CPT/HCPCS: 36415; 80053; 80061; 84443; 85025

== ENCOUNTER 2023-07-04 11:45 | Outpatient (AMB) | payer OTHER, SELFPAY ==
[2023-07-04 11:47] VITALS: BP 156/90; PULSE 90; O2SAT 98; BMI 41.0
--- NOTE | 2023-07-04 11:47 | MHC.PC.OV ---
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 per policy Accompanied by: Self / Same As Patient Allergies No Known Allergies [No Known Allergies*] Allergy (Verified 07/04/23 11:47) Medication List - Last Reconciled 07/05/23 by Doni Cazares MD albuterol sulfate 90 mcg/actuation 2 puffs PO Q6H PRN alprazolam 1 mg PO TID PRN folic acid 1 mg PO DAILY hydrochlorothiazide 25 mg PO DAILY levothyroxine 88 mcg PO DAILY lisinopril 20 mg PO DAILY lorazepam (Ativan) 1 mg PO TID PRN omeprazole 20 mg PO DAILY 90 days thiamine HCl (vitamin B1) 100 mg PO DAILY trazodone 50 mg PO BEDTIME PRN Tobacco use date assessed: 04/28/23 Dental Screening Dental Screen Date: 04/28/23 HPI Follow Up HPI Details HTN hypothyroidism and chronic anxiety; compliant; stable [facility] Medical History Alcohol dependence Alcoholic hepatitis Anxiety Depression Hypertension Surgical History No history of previous surgery Family History Mother No problems noted. Father No problems noted. Other Mental health disorder Substance use disorder Social History Housing: Condominium Alcohol intake: current Alcohol intake frequency: a few times a week Alcohol type: hard liquor Patient Tobacco Use Status: Current everyday Tobacco user Tobacco use type: Cigarette Cigarettes Per Day: 3 e-Cigarette/Vaping Use: Never Used Second Hand Smoke Exposure: Yes Substance Use Type: Marijuana service: No Current occupational status: employed Cognitive needs: No Hearing needs: No Vision needs: No Questionnaire PHQ-9 Over the last 2 weeks, how often have you been bothered by any of the following problems? 1. Little interest or pleasure in doing things: several days 2. Feeling down, depressed, or hopeless: several days 3. Trouble falling or staying asleep, or sleeping too much: nearly every day 4. Feeling tired or having little energy: more than half the days 5. Poor appetite or overeating: more than half the days 6. Feeling bad about yourself - or that you are a failure or have let yourself or your family down: several days 7. Trouble concentrating on things, such as reading the newspaper or watching television: several days 8. Moving or speaking so slowly that other people could have noticed. Or the opposite - being so fidgety or restless that you have been moving around a lot more than usual: more than half the days 9. Thoughts that you would be better off or of hurting yourself in some way: not at all Total score: 13 Depression Screening Interpretation: Positive Depression Screening Done: Yes 15935 - PHQ-9 Billing: Yes Source: Developed by Drs. Julio C Aguilar, Caitlyn Jimenez, Francisco Javier Olson and colleagues, with an educational miguel from [employer]. Thrive Questionnaire Date Thrive assessed: 04/28/23 ARNALDO-7 AMB Questionnaire ARNALDO-7 Date ARNALDO - 7 assessed: 04/28/23 Source: Developed by Drs. Julio C Aguilar, Caitlyn Jimenez, Francisco Javier Olson and colleagues, with an educational miguel from [employer]. Review of Systems Const Denies chills, Denies headache(s) and Denies weight loss ENT Denies headache(s) Card Denies chest pain, Denies syncope, Denies irregular heart rhythm and Denies dyspnea Resp Denies chest congestion, Denies cough and Denies dyspnea GI Denies abdominal pain, Denies change in stool character, Denies nausea and Denies vomiting Musc Denies deformity and Denies joint swelling Neuro Denies syncope and Denies headache(s) Physical exam (Primary Care) Vital Signs: Last Vital Signs Pulse 90 07/04/23 11:47 BP 156/90 H 07/04/23 11:47 Pulse Ox 98 07/04/23 11:47 Oxygen Delivery Method Room Air 07/04/23 11:47 BMI result Body Mass Index 41.0 Tobacco/Smoking Status: Tobacco use Status Tobacco use date assessed 04/28/23 07/04/23 11:55 Patient Tobacco Use Status Current everyday Tobacco 07/04/23 11:55 Tobacco use type Cigarette 07/04/23 11:55 e-Cigarette/Vaping Use Never Used 07/04/23 11:55 PHQ-9: PHQ-9 Score PHQ-9: Total score 13 07/04/23 11:55 Depression Screening Interpretation: Positive Thrive Assessment: Date of Thrive Assessment Date Thrive assessed 04/28/23 07/04/23 11:55 Const General: cooperative, comfortable, no acute distress and alert Neck Neck: Yes no lymphadenopathy Thyroid: Thyroid normal Resp Effort & Inspection: normal respiratory effort Auscultation: clear to auscultation bilaterally Percussion: percussion normal Cardio Jugular venous distension: no JVD Palpation: normal PMI Rate: regular rate Rhythm: regular rhythm Heart sounds: S1 normal heart sound present and S2 normal heart sound present GI Inspection: Yes normal to inspection Palpation (GI): No hepatosplenomegaly present Skin General skin exam: no rashes or lesions noted Extrem General: Yes no clubbing, cyanosis or edema Assessment and Plan Assessment & Plan (1) Hypothyroidism (acquired): Code(s): E03.9 - Hypothyroidism, unspecified Plan: stable; same rx; (2) Hypertension: Code(s): I10 - Essential (primary) hypertension Plan: stable; same rx (3) Anxiety: Code(s): F41.9 - Anxiety disorder, unspecified Plan: sees psych Orders: Orders Lipid Panel Today Z13.220 - Encounter for screening for lipoid disorders Complete Blood Count Auto Diff Today Z13.0 - Encounter for screening for diseases of the blood and blood-forming organs and certain disorders involving the immune mechanism Comprehensive [place]. Panel Fast Today Z13.9 - Encounter for screening, unspecified Thyroid Stimulating Hormone Today Z13.29 - Encounter for screening for other suspected endocrine disorder Coding Level of Care Code Est Pt Level 4 (47965) Diagnoses Hypothyroidism (acquired) E03.9 Hypertension I10 Anxiety F41.9
== END 2023-07-04 13:52 | disposition home or self-care (01) ==
PROVIDERS: PCP Internal Medicine; Visit Provider Internal Medicine
DX: E03.9 Hypothyroidism, unspecified (principal); I10 Essential (primary) hypertension; F41.9 Anxiety disorder, unspecified
CPT/HCPCS: 99214

== ENCOUNTER 2024-05-13 09:52 | Outpatient (AMB) | payer OTHER, SELFPAY ==
--- NOTE | 2024-05-13 09:58 | MHC.PC.OV ---
Vital Signs 05/13/24 09:59 Height 5 ft 11 in Weight 287 lb 8 oz BMI 40.1 BP 130/82 Blood Pressure Location Lt brachial Position Sitting Pulse 103 H Pulse Source Pulse Oximeter Temp 98.2 F Temp Source Temporal Artery Scan Pulse Oximetry (%) 96 Oxygen Delivery Method Room Air Intake Visit Reasons: PE Intake Note: Patient is here today for a physical. 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: No Commutator Assembler: Not Required per policy Accompanied by: Self / Same As Patient Allergies No Known Allergies [No Known Allergies*] Allergy (Verified 05/13/24 09:58) Medication List - Last Reconciled 05/13/24 by Doni Cazares MD albuterol sulfate 90 mcg/actuation 2 puffs PO Q6H PRN alprazolam 1 mg PO TID PRN folic acid 1 mg PO DAILY hydrochlorothiazide 25 mg PO DAILY levothyroxine 88 mcg PO DAILY lisinopril 20 mg PO DAILY lorazepam (Ativan) 1 mg PO TID PRN omeprazole 20 mg PO DAILY 90 days thiamine HCl (vitamin B1) 100 mg PO DAILY trazodone 50 mg PO BEDTIME PRN Tobacco use date assessed: 05/13/24 Dental Screening Dental Screen Date: 05/13/24 Did you have a dental visit in the last 12 months?: No Did you have a dental problem in the last 6 months where you did not have access to dental care?: No Was dental information given to patient?: Patient has dentist HPI PE HPI Details HTN and hypothyroidism on rx; doing well and compliant [facility] Medical History Alcohol dependence Alcoholic hepatitis Anxiety Depression Hypertension Surgical History No history of previous surgery Family History Mother No problems noted. Father No problems noted. Other Mental health disorder Substance use disorder Social History Housing: Condominium Alcohol intake: current Alcohol intake frequency: a few times a week Alcohol type: hard liquor Patient Tobacco Use Status: Current everyday Tobacco user Tobacco use type: Cigarette Cigarette Packs Per Day: 0.25 Cigarettes Per Day: 3 e-Cigarette/Vaping Use: Never Used Second Hand Smoke Exposure: Yes Substance Use Type: Marijuana service: No Current occupational status: employed Cognitive needs: No Hearing needs: No Vision needs: No Questionnaire PHQ-9 Over the last 2 weeks, how often have you been bothered by any of the following problems? 1. Little interest or pleasure in doing things: several days 2. Feeling down, depressed, or hopeless: several days 3. Trouble falling or staying asleep, or sleeping too much: more than half the days 4. Feeling tired or having little energy: more than half the days 5. Poor appetite or overeating: more than half the days 6. Feeling bad about yourself - or that you are a failure or have let yourself or your family down: not at all 7. Trouble concentrating on things, such as reading the newspaper or watching television: several days 8. Moving or speaking so slowly that other people could have noticed. Or the opposite - being so fidgety or restless that you have been moving around a lot more than usual: not at all 9. Thoughts that you would be better off or of hurting yourself in some way: not at all Total score: 9 Depression Screening Interpretation: Positive Depression Screening Done: Yes Source: Developed by Drs. Julio C Aguilar, Caitlyn Jimenez, Francisco Javier Olson and colleagues, with an educational miguel from [employer]. Thrive Questionnaire Date Thrive assessed: 05/06/24 I am a: Patient What is your living situation today?: I have a steady place to live Within the past 12 months, did the food you bought not last and you didn't have the money to get more?: Often true Within the past 12 months, did you worry whether your food would run out before you got money to buy more?: Often true Do you have trouble paying for medicines?: No Do you have trouble getting transportation to medical appointments?: No Do you have trouble paying your heating and electricity bill?: No Do you have trouble taking care of your child, family member or friend?: No Do you have trouble with day-to-day activities such as bathing, preparing meals, shopping, managing finances, etc.?: No Are you currently unemployed and looking for a job?: I choose not to answer this question Are you interested in more education?: I choose not to answer this question Please select the resources that you would like help with: Food Currently or been in a relationship where the following occur: No concerns reported THRIVE Score: 2 AUDIT C Alcohol Use Questionnaire (AUDIT-C) 1. How often do you have a drink containing alcohol?: 2-3 times a week 2. How many drinks containing alcohol do you have on a typical day when you are drinking?: 1 or 2 3. How often do you have six or more drinks on one occasion?: Monthly Total Score: 5 ARNALDO-7 AMB Questionnaire ARNALDO-7 Date ARNALDO - 7 assessed: 05/13/24 Feeling nervous, anxious, or on edge: 2 = More than half the days Not being able to stop or control worryin = Several days Worrying too much about different things: 2 = More than half the days Trouble relaxin = Several days Being so restless that it is hard to sit still: 0 = Not at all Becoming easily annoyed or irritable: 1 = Several days Feeling afraid as if something awful might happen: 1 = Several days Total ARNALDO-7 score (0-4 normal; 5-9 mild; 10-14 moderate; 15-21 severe): 8 Source: Developed by Drs. Julio C Aguilar, Caitlyn Jimenez, Francisco Javier Olson and colleagues, with an educational miguel from [employer]. Review of Systems Const Denies chills, Denies fatigue, Denies headache(s) and Denies weight loss Eyes Denies change in vision, Denies diplopia and Denies eye pain ENT Denies headache(s) Card Denies chest pain, Denies syncope, Denies irregular heart rhythm and Denies dyspnea Resp Denies chest congestion, Denies cough and Denies dyspnea GI Denies abdominal pain, Denies change in stool character, Denies nausea and Denies vomiting Musc Denies deformity and Denies joint swelling Skin/Breast Denies lesions and Denies unusual bruising Neuro Denies syncope and Denies headache(s) Endo Denies fatigue Physical exam (Primary Care) Vital Signs: Last Vital Signs Temp 98.2 F 05/13/24 09:59 Pulse 103 H 05/13/24 09:59 BP 130/82 05/13/24 09:59 Pulse Ox 96 05/13/24 09:59 Oxygen Delivery Method Room Air 05/13/24 09:59 BMI result Body Mass Index 40.1 Tobacco/Smoking Status: Tobacco use Status Tobacco use date assessed 05/13/24 05/13/24 10:04 Patient Tobacco Use Status Current everyday Tobacco 05/13/24 10:04 Tobacco use type Cigarette 05/13/24 10:04 e-Cigarette/Vaping Use Never Used 05/13/24 10:04 PHQ-9: PHQ-9 Score PHQ-9: Total score 9 05/13/24 10:04 Depression Screening Interpretation: Positive Thrive Assessment: Date of Thrive Assessment Date Thrive assessed 05/06/24 05/13/24 10:04 Currently or been in a relationship where the following occur: No concerns reported Const General: cooperative, healthy appearing and no acute distress Orientation/consciousness: oriented to person, oriented to place and oriented to time HENMT Head: Yes normal to inspection, Yes normocephalic and Yes atraumatic Mouth: Normal oral and palatal mucosa present and tongue normal Throat: Yes posterior oropharynx normal and Yes uvula midline Eyes General: appearance normal, both eyes and all related structures Neck Neck: Yes normal visual inspection, Yes full ROM and Yes no lymphadenopathy Thyroid: Thyroid normal Carotids: normal carotid upstroke Chest Chest palpation & inspection: normal inspection of the chest Resp Effort & Inspection: normal respiratory effort and able to speak in complete sentences Auscultation: clear to auscultation bilaterally Cardio Jugular venous distension: no JVD Palpation: normal PMI Rate: regular rate Rhythm: regular rhythm Heart sounds: S1 normal heart sound present and S2 normal heart sound present GI Inspection: Yes normal to inspection Palpation (GI): Soft to palpation and No hepatosplenomegaly present Auscultation: normal bowel sounds General: Yes no CVA tenderness Back/Spine/Pelvis Back: no CVA tenderness Skin General skin exam: no rashes or lesions noted Neuro General: oriented to person, oriented to place and oriented to time Extrem General: Yes normal to inspection and Yes full ROM Coding Level of Care Code Est Pt Prev Care 18-39y(00009) Diagnoses Physical exam Z00.00 Hypertension I10 Hypothyroidism (acquired) E03.9 Assessment & Plan Assessment & Plan (1) Physical exam: Code(s): Z00.00 - Encounter for general adult medical examination without abnormal findings Category: Medical Plan: stable; do labs (2) Hypertension: Code(s): I10 - Essential (primary) hypertension Category: Medical Plan: stable; same rx (3) Hypothyroidism (acquired): Code(s): E03.9 - Hypothyroidism, unspecified Category: Medical Plan: stable; same rx Orders: Orders Lipid Panel Today Z13.220 - Encounter for screening for lipoid disorders Thyroid Stimulating Hormone Today Z13.29 - Encounter for screening for other suspected endocrine disorder Comprehensive [place]. Panel Fast Today Z13.9 - Encounter for screening, unspecified Complete Blood Count Auto Diff Today Z13.0 - Encounter for screening for diseases of the blood and blood-forming organs and certain disorders involving the immune mechanism Medications: Refilled folic acid 1 mg PO DAILY 30 tabs 1RF
[2024-05-13 09:59] VITALS: BP 130/82; PULSE 103; TEMP 36.8; O2SAT 96; BMI 40.1
== END 2024-05-13 12:03 | disposition home or self-care (01) ==
PROVIDERS: PCP Internal Medicine; Visit Provider Internal Medicine
DX: Z00.00 Encounter for general adult medical examination without abnormal findings (principal); I10 Essential (primary) hypertension; E03.9 Hypothyroidism, unspecified

== ENCOUNTER 2024-05-13 09:52 | Outpatient (REF) | payer OTHER, SELFPAY ==
[2024-05-13 10:25] LABS: MANUAL DIFF FLAG NO
[2024-05-13 10:50] LABS: Basophils Absolute Auto 0.1 X10*3/uL (0.0-0.2); Basophils Percent Auto 0.9 % (0-2); Eosinophils Absolute Auto 0.1 X10*3/uL (0.0-0.4); Eosinophils Percent Auto 0.7 % (0-4); Hematocrit 51.2 % (42.0-52.0); Hemoglobin 17.6 g/dl (14.0-18.0); Imm Gran Abs Auto 0.04 X10*3/uL (0.00-0.03); Imm Gran Pct Auto 0.4 % (0.0-0.4); Lymphocytes Absolute Auto 2.3 X10*3/uL (1.2-4.9); Lymphocytes Percent Auto 25.3 % (20-40); Mean Corpuscular HGB Conc 34.4 g/dl (31.0-36.0); Mean Corpuscular Hemoglobin 33.1 pg (27.0-33.0); Mean Corpuscular Volume 96.4 fL (80.0-98.0); Mean Platelet Volume 8.6 fL (9.4-12.4); Monocytes Absolute Auto 1.3 X10*3/uL (0.1-1.2); Monocytes Percent Auto 14.3 % (2-11); Neutrophils Absolute Auto 5.4 x10*3/uL (2.0-8.3); Neutrophils Percent Auto 58.4 % (45-73); Platelet Count 402 X10*3/uL (160-400); Red Blood Count 5.31 X10*6/uL (4.60-5.80); Red Cell Distribution Width 12.8 % (11.0-16.0); White Blood Count 9.2 X10*3/uL (4.8-10.8)
[2024-05-13 11:46] LABS: Alanine Aminotransferase 72 U/L (0-40); Albumin Level 4.5 g/dL (3.5-5.0); Alkaline Phosphatase 71 U/L (39-117); Anion Gap 14 (12-20); Aspartate Amino Transferase 42 U/L (5-37); Bilirubin Total 0.6 mg/dL (0.0-1.0); Blood Urea Nitrogen 13 mg/dL (9-16); Calcium 9.9 mg/dL (8.4-10.2); Carbon Dioxide 23 mmol/L (22-29); Chloride 104 mmol/L (96-108); Cholesterol 185 mg/dL (<200); Estimated Glomerular Filt Rate > 60; Glucose Fasting 93 mg/dL (60-99); HDL Cholesterol 38 mg/dL (>40); LDL Cholesterol Calculated 133 mg/dL (<100); Potassium 3.9 mmol/L (3.3-5.1); Sodium 137 mmol/L (135-145); Total Protein 8.4 g/dL (6.5-8.0); Triglycerides 73 mg/dL (<150)
== END 2024-05-13 09:53 | disposition home or self-care (01) ==
LOC: HO.LAB 09:52
PROVIDERS: PCP Internal Medicine; Visit Provider Internal Medicine
DX: Z00.00 Encounter for general adult medical examination without abnormal findings (principal); I10 Essential (primary) hypertension; E03.9 Hypothyroidism, unspecified
CPT/HCPCS: 36415; 80053; 80061; 84443; 85025; 99395

== ENCOUNTER 2024-07-31 09:22 | Outpatient (AMB) | payer OTHER, SELFPAY ==
[2024-07-31 09:29] VITALS: BP 118/80; PULSE 83; RESP 15; TEMP 36.3; O2SAT 97; BMI 40.9
--- NOTE | 2024-07-31 09:29 | MHC.PC.OV ---
Vital Signs 07/31/24 09:29 Height 5 ft 11 in Weight 293 lb 6 oz BMI 40.9 BP 118/80 Blood Pressure Location Lt brachial Position Semi Gomez's Respiration 15 Pulse 83 Pulse Source Pulse Oximeter Temp 97.3 F Temp Source Temporal Artery Scan Pulse Oximetry (%) 97 Oxygen Delivery Method Room Air Intake Visit Reasons: TAY DR Cazares Manager Interventional Required: No Accompanied by: Self / Same As Patient Allergies No Known Allergies [No Known Allergies*] Allergy (Verified 07/31/24 10:04) Medication List - Last Reconciled 07/31/24 by CELESTINO Naranjo albuterol sulfate 90 mcg/actuation 2 puffs PO Q6H PRN alprazolam 1 mg PO TID PRN hydrochlorothiazide 25 mg PO DAILY indomethacin 50 mg PO BID PRN levothyroxine 88 mcg PO DAILY lisinopril 20 mg PO DAILY omeprazole 20 mg PO DAILY 90 days thiamine HCl (vitamin B1) 100 mg PO DAILY Tobacco use date assessed: 05/13/24 Dental Screening Dental Screen Date: 05/13/[address] Cazares HPI Details The patient is a 33-year-old male presenting to transition care from Dr. Cazares, who retired in May. He has concerns about management of elevated liver enzymes and cholesterol levels. He has a history of alcohol use disorder and anxiety, for which he currently takes Xanax as needed. The patient has ceased alcohol consumption recently and has observed improvements in liver enzyme levels, though still elevated. He is concerned about hypercholesterolemia, having made lifestyle changes to address this, though no medication is currently being used for cholesterol management. The patient reports a history of anxiety and unsuccessful trials of psychiatric medications and therapy since childhood. He is currently on levothyroxine for hypothyroidism but struggles with regular morning intake. The patient suspects insulin resistance and elevated cortisol levels based on symptoms, per his research, but lacks formal cortisol testing. He denies major symptoms like chest pain or shortness of breath but notes a minor leg ache. He is engaged in dietary modifications and physical activity to aid weight loss and expresses interest in further evaluation of his cortisol levels and possible involvement in a weight loss program. [facility] Medical History Alcoholic hepatitis Alcohol dependence Depression Anxiety Hypertension Surgical History No history of previous surgery Family History Mother No problems noted. Father No problems noted. Other Mental health disorder Substance use disorder Social History Housing: Condominium Alcohol intake: current Alcohol intake frequency: a few times a week Alcohol type: hard liquor Patient Tobacco Use Status: Current everyday Tobacco user Tobacco use type: Cigarette Cigarette Packs Per Day: 0.25 Cigarettes Per Day: 3 e-Cigarette/Vaping Use: Never Used Second Hand Smoke Exposure: Yes Substance Use Type: Marijuana service: No Current occupational status: unemployed and disabled Cognitive needs: No Hearing needs: No Vision needs: No Questionnaire Thrive Questionnaire Date Thrive assessed: 07/31/24 I am a: Patient What is your living situation today?: I have a steady place to live Within the past 12 months, did the food you bought not last and you didn't have the money to get more?: Often true Within the past 12 months, did you worry whether your food would run out before you got money to buy more?: Often true Do you have trouble paying for medicines?: No Do you have trouble getting transportation to medical appointments?: No Do you have trouble paying your heating and electricity bill?: No Do you have trouble taking care of your child, family member or friend?: No Do you have trouble with day-to-day activities such as bathing, preparing meals, shopping, managing finances, etc.?: No Are you currently unemployed and looking for a job?: I choose not to answer this question Are you interested in more education?: I choose not to answer this question Please select the resources that you would like help with: Food Currently or been in a relationship where the following occur: No concerns reported THRIVE Score: 2 ARNALDO-7 AMB Questionnaire ARNALDO-7 Date ARNALDO - 7 assessed: 05/13/24 Source: Developed by Drs. Julio C Aguilar, Caitlyn Jimenez, Francisco Javier Olson and colleagues, with an educational miguel from [employer]. Review of Systems Const Denies headache(s) Eyes Denies loss of vision ENT Denies vertigo, Denies dizziness, Denies headache(s) and Denies sore throat Card Denies chest pain, Denies leg edema and Denies lightheadedness Resp Denies cough, Denies hemoptysis and Denies wheezing GI Denies abdominal pain, Denies melena, Denies constipation, Denies diarrhea and Denies vomiting Denies dysuria, Denies urinary frequency and Denies urinary urgency Musc Denies arthralgias, Denies joint swelling, Reports muscle cramps (Mild leg cramps), Denies numbness and Denies tingling Neuro Denies Abnormal speech present, Denies behavioral changes, Denies vertigo, Denies dizziness, Denies headache(s), Denies loss of vision, Denies memory loss, Denies numbness and Denies tingling Psych Reports anxiety, Denies behavioral changes, Denies depression, Denies memory loss and Denies panic attacks Dominic/Lymph Denies easy bleeding and Denies easy bruising Aller/Immun Denies wheezing Physical exam (Primary Care) Vital Signs: Last Vital Signs Temp 97.3 F 07/31/24 09:29 Pulse 83 07/31/24 09:29 Resp 15 07/31/24 09:29 BP 118/80 07/31/24 09:29 Pulse Ox 97 07/31/24 09:29 Oxygen Delivery Method Room Air 07/31/24 09:29 BMI result Body Mass Index 40.9 Tobacco/Smoking Status: Tobacco use Status Tobacco use date assessed 05/13/24 07/31/24 09:34 Patient Tobacco Use Status Current everyday Tobacco 07/31/24 09:34 Tobacco use type Cigarette 07/31/24 09:34 e-Cigarette/Vaping Use Never Used 07/31/24 09:34 Thrive Assessment: Date of Thrive Assessment Date Thrive assessed 07/31/24 07/31/24 09:38 Currently or been in a relationship where the following occur: No concerns reported Const General: healthy appearing, no acute distress, alert and awake Nutritional Appearance: well nourished Orientation/consciousness: oriented to person, oriented to place and oriented to time HENMT Ears: TM's normal bilaterally General nose exam: Normal nasal mucous membranes and turbinates present Eyes Conjunctivae: conjunctivae normal Sclerae: sclerae normal Pupils: Equal, round and reactive pupils present Neck Neck: Yes no lymphadenopathy and Yes no JVD Thyroid: Thyroid normal Carotids: no bruits Resp Effort & Inspection: normal respiratory effort and not tachypneic Auscultation: no crackles, no rales, no rhonchi and no wheezes Cardio Rate: regular rate Rhythm: regular rhythm Heart sounds: no murmurs and normal S1 and S2 GI Inspection: Yes obesity Palpation (GI): Soft to palpation, nontender, no hepatomegaly and no splenomegaly Auscultation: normal bowel sounds Skin General skin exam: no rashes or lesions noted and dry skin Neuro General: oriented to person, oriented to place and oriented to time Cranial nerves: Yes Equal, round and reactive pupils present Speech: No Abnormal speech present Gait exam (Neuro): Normal gait present Motor exam (neuro): no tremor noted Extrem Right upper extremity: full ROM Left upper extremity: full ROM Right lower extremity: full ROM; no edema Left lower extremity: full ROM; no edema Psych Mental Status: mental status grossly normal Speech and movement: Normal speech and movement present Affect: normal affect Attitude: cooperative Thought process: Normal thought process present Results Reviewed Results Reviewed: Laboratory Tests 05/13/24 10:24 WBC 9.2 RBC 5.31 Hgb 17.6 Hct 51.2 MCV 96.4 MCH 33.1 H MCHC 34.4 RDW 12.8 Plt Count 402 H MPV 8.6 L Sodium 137 Potassium 3.9 Chloride 104 Carbon Dioxide 23 Anion Gap 14 BUN 13 Creatinine 0.74 Estimated GFR > 60 Fasting Glucose 93 Calcium 9.9 AST 42 H ALT 72 H Alkaline Phosphatase 71 Total Protein 8.4 H Albumin 4.5 Triglycerides 73 Cholesterol 185 LDL Cholesterol, Calc 133 H HDL Cholesterol 38 L Coding Level of Care Code Est Pt Level 4 (86863) Diagnoses Hypothyroidism (acquired) E03.9 Hypertension, unspecified type I10 Hypertension type: unspecified Morbid obesity E66.01 Asthma, unspecified asthma severity, unspecified whether complicated, unspecified whether persistent J45.909 Asthma persistence: unspecified Asthma complication type: unspecified Asthma severity: unspecified severity Recurrent major depressive disorder, remission status unspecified F33.9 Active/Remission status: remission status unspecified Anxiety F41.9 Alcoholic hepatitis without ascites K70.10 Ascites presence: without ascites Time Spent (min) 43 Assessment & Plan Assessment & Plan (1) Hypothyroidism (acquired): Code(s): E03.9 - Hypothyroidism, unspecified Category: Medical Plan: TSH 2.90 on labs 2 months ago, no T4 was obtained. He is currently on levothyroxine 88 mcg daily that he is struggling to take every morning. We will check T4 with his follow up labs. Continue levothyroxine 88 mcg daily (2) Hypertension: Code(s): I10 - Essential (primary) hypertension Category: Medical Qualifiers: Hypertension type: unspecified Qualified Code(s): I10 - Essential (primary) hypertension Plan: Reinforced diet dash diet-systolic goal of less than 130 mm Continue lisinopril 20 mg daily, hydrochlorothiazide 25 mg daily (3) Morbid obesity: Code(s): E66.01 - Morbid (severe) obesity due to excess calories Category: Medical Plan: Encouraged to exercise for at least 30 minutes a day/5 days a week Healthy eating discussed. Encouraged to eat fruits/vegetables, protein-fish/baked chicken, and to avoid salty/fried foods, sweets, caffeine and carbohydrates. Encouraged to increase water intake 6-8 glasses a day Reports that he has been change in his diet and he is questioning if this might be related to abnormal cortisol level. A random cortisol level was added to his follow up labs. We will also refer the patient to weight management. (4) Asthma: Code(s): J45.909 - Unspecified asthma, uncomplicated Category: Medical Qualifiers: Asthma persistence: unspecified Asthma complication type: unspecified Asthma severity: unspecified severity Qualified Code(s): J45.909 - Unspecified asthma, uncomplicated Plan: Stable. Continue albuterol sulfate 90 mcg/actuation 2 puffs QH p.r.n. (5) Major depressive disorder, recurrent: Code(s): F33.9 - Major depressive disorder, recurrent, unspecified Category: Medical Qualifiers: Active/Remission status: remission status unspecified Qualified Code(s): F33.9 - Major depressive disorder, recurrent, unspecified Plan: Reports a longstanding history of dealing with therapist and psychiatrist. Reports that he was placed on different medications intermittently, which none of these medications worked for him. He is currently on alprazolam 1 mg t.i.d. p.r.n. declined referral therapist/psychiatrist. Denies SI/HI (6) Anxiety: Code(s): F41.9 - Anxiety disorder, unspecified Category: Medical Plan: Same as above (7) Alcoholic hepatitis: Comment: needs to stop alcohol; do labs; 20 mon reviewing chart examining patient and charting Code(s): K70.10 - Alcoholic hepatitis without ascites Category: Medical Qualifiers: Ascites presence: without ascites Qualified Code(s): K70.10 - Alcoholic hepatitis without ascites Plan: The patient reports stopped drinking recently. His ALT went from 174-72 and AST from 132-42. Discussed with the patient that even though these numbers came down they are still elevated out of the normal range. Reinforced continuation of alcohol cessation and working on decreasing his cholesterol and weight. Both will improve his liver function. He also stopped taking his folic acid 1 mg daily. We will re-evaluate his folate level on his follow up labs. Orders: Orders Lipid Panel 3 Months E03.9 - Hypothyroidism, unspecified, E66.01 - Morbid (severe) obesity due to excess calories, F33.9 - Major depressive disorder, recurrent, unspecified, F41.9 - Anxiety disorder, unspecified, I10 - Essential (primary) hypertension, J45.909 - Unspecified asthma, uncomplicated Free T4 (Free Thyroxine) 3 Months E03.9 - Hypothyroidism, unspecified, E66.01 - Morbid (severe) obesity due to excess calories, F33.9 - Major depressive disorder, recurrent, unspecified, F41.9 - Anxiety disorder, unspecified, I10 - Essential (primary) hypertension, J45.909 - Unspecified asthma, uncomplicated Cortisol Random 3 Months E66.01 - Morbid (severe) obesity due to excess calories, F33.9 - Major depressive disorder, recurrent, unspecified Complete Blood Count Auto Diff 3 Months E03.9 - Hypothyroidism, unspecified, E66.01 - Morbid (severe) obesity due to excess calories, F33.9 - Major depressive disorder, recurrent, unspecified, F41.9 - Anxiety disorder, unspecified, I10 - Essential (primary) hypertension, J45.909 - Unspecified asthma, uncomplicated Comprehensive [place]. Panel Fast 3 Months E03.9 - Hypothyroidism, unspecified, E66.01 - Morbid (severe) obesity due to excess calories, F33.9 - Major depressive disorder, recurrent, unspecified, F41.9 - Anxiety disorder, unspecified, I10 - Essential (primary) hypertension, J45.909 - Unspecified asthma, uncomplicated UA CC w/rflx Micro + Cult 3 Months E03.9 - Hypothyroidism, unspecified, E66.01 - Morbid (severe) obesity due to excess calories, F33.9 - Major depressive disorder, recurrent, unspecified, F41.9 - Anxiety disorder, unspecified, I10 - Essential (primary) hypertension, J45.909 - Unspecified asthma, uncomplicated TSH reflex Free T4 3 Months E03.9 - Hypothyroidism, unspecified, E66.01 - Morbid (severe) obesity due to excess calories, F33.9 - Major depressive disorder, recurrent, unspecified, F41.9 - Anxiety disorder, unspecified, I10 - Essential (primary) hypertension, J45.909 - Unspecified asthma, uncomplicated Vitamin D 25-OH Total 3 Months E03.9 - Hypothyroidism, unspecified, E66.01 - Morbid (severe) obesity due to excess calories, F33.9 - Major depressive disorder, recurrent, unspecified, F41.9 - Anxiety disorder, unspecified, I10 - Essential (primary) hypertension, J45.909 - Unspecified asthma, uncomplicated Vitamin B12 and Folate 3 Months K70.10 - Alcoholic hepatitis without ascites Referrals Medical Weight Management Referral E66.01 - Morbid (severe) obesity due to excess calories Medications: Refilled hydrochlorothiazide 25 mg PO DAILY 90 tabs 3RF levothyroxine 88 mcg PO DAILY 90 tabs 3RF lisinopril 20 mg PO DAILY 90 tabs 3RF alprazolam 1 mg PO TID PRN 90 tabs 0RF anxiety Discontinued lorazepam (Ativan) Discontinued Reason: Doctor's Order 1 mg PO TID PRN 60 tabs 3RF alcohol withdrawal
== END 2024-07-31 10:33 | disposition home or self-care (01) ==
LOC: HO.HMCH 09:22
DX: E03.9 Hypothyroidism, unspecified (principal); E66.01 Morbid (severe) obesity due to excess calories; K70.10 Alcoholic hepatitis without ascites; Z68.41 Body mass index [BMI] 40.0-44.9, adult; I10 Essential (primary) hypertension; J45.909 Unspecified asthma, uncomplicated; F33.9 Major depressive disorder, recurrent, unspecified; F41.9 Anxiety disorder, unspecified

== ENCOUNTER → 2024-07-31 09:22 | Outpatient (BNVA) | payer OTHER, SELFPAY | DX: E03.9 Hypothyroidism, unspecified (principal); I10 Essential (primary) hypertension; E66.01 Morbid (severe) obesity due to excess calories; Z68.41 Body mass index [BMI] 40.0-44.9, adult; J45.909 Unspecified asthma, uncomplicated; F33.9 Major depressive disorder, recurrent, unspecified; F41.9 Anxiety disorder, unspecified; K70.10 Alcoholic hepatitis without ascites; Z79.899 Other long term (current) drug therapy | CPT/HCPCS: 99212 ==

== ENCOUNTER 2024-10-01 08:18 | Outpatient (AMB) | payer OTHER, SELFPAY ==
--- OUTSIDE RECORDS SUMMARY | 2024-10-01 08:26 | XMS_ITS | Clinical Summary ---
Author Organization [facility] Address [address] [place] [id number] Phone Care Team Providers Care C.O.D. Biller Name Role Phone Doni Cazares MD Primary Care Provider [phone] Allergies No known active allergies Medications ondansetron (ZOFRAN-ODT) 4 MG disintegrating tablet Take 1 tablet (4 mg total) by mouth every 8 (eight) hours as needed for nausea. 10 tablet Active lisinopril (PRINIVIL,ZESTRIL) 20 MG tablet Take 20 mg by mouth daily. Active ALPRAZolam (XANAX) 1 MG tablet Take 1 mg by mouth daily as needed for sleep. Active Social History Tobacco Use Types Packs/Day Years Used Date Smoking Tobacco: Some Days Smokeless Tobacco: Never Alcohol Use Standard Drinks/Week Comments Yes 0 (1 standard drink = 0.6 oz pur e alcohol) liter of gin per day Education Answer Date Recorded Are you interested in more education? Not on elma e 07/01/2022 Are you concerned about learning? Not on file 07/01/2022 No 07/01/2022 No 07/01/2022 Digital Access Answer Date Recorded No 08/01/2022 No 08/01/2022 No 08/01/2022 Reliable internet access at home? Not on file 08/01/2022 Device with a working camera? Not on file Sex and Gender Information Value Date Recorded Sex Assigned at Male 10/11/2021 8:15 AM EDT Legal Sex Male 4:48 PM EDT Gender Identity Male 10/11/2021 8:15 AM EDT Sexual Orientation Not on file Last Filed Vital Signs Vital Sign Reading Time Taken Comments Blood Pressure 127/82 10/11/2021 12:00 PM EDT Pulse 86 10/11/2021 12:00 PM EDT Temperature 36.1 C (97 F) 10/11/2021 8:12 AM EDT Respiratory Rate 15 10/11/2021 11:00 AM EDT Oxygen Saturation 96% 10/11/2021 12:00 PM EDT Inhaled Oxygen Concentration - - Weight 127 kg (280 lb) 10/11/2021 8:12 AM EDT Height 180.3 cm (5' 11 ) 10/11/2021 8:12 AM EDT Body Mass Index 39.05 10/11/2021 8:12 AM EDT Plan of Treatment Health Maintenance Due Date Last Done Comments DEPRESSION SCREENING 2004 SMOKING Hx and SMOKELESS TOBACCO SCREENING 2005 HEPATITIS C SCREENING 2010 HIV ONE-TIME SCREENING (18-65 YEARS) 2010 PNEUMOCOCCAL VACCINES (0-49 years) (1 of 2 - PCV) 11/28/2011 Adult Td,Tdap Booster 09/05/2017 09/06/2007, 005 CREATININE LEVEL 10/11/2022 10/11/2021, 10/10/2021 POTASSIUM LEVEL 10/11/2022 10/11/2021, 10/10/2021 COVID-19 VACCINE ( season) 2023 HIB VACCINES Completed 03/05/1994, 06/06, 05/03/1993, Additional history exists MENINGOCOCCAL VACCINES (ACWY) Aged Out 09/06/2007 No longer eligible based on patient's age to complete this topic HEPATITIS A VACCINES Aged Out No long er eligible based on patient's age to complete this topic MENINGOCOCCAL VACCINES (B) Aged Out N o longer eligible based on patient's age to complete this topic Medical Devices Not on file Procedures Procedure Name Priority Date/Time Associated Diagnosis Comments BASIC METABOLIC PANEL STAT 10/11/2021 11:37 AM EDT from Last 3 Months or Most Recently Relevant to Health Maintenance Results * (ABNORMAL) Basic metabolic panel (10/11/2021 11:37 AM EDT) SODIUM 136 133 - 146 mmol/L [facility] CHLORIDE 98 96 - 108 mmol/L [facility] POTASSIUM 3.6 3.3 - 5.1 mmol/L [facility] Comment:Specimen slightly he molyzed, result may be falsely elevated. CO2 27 21 - 35 mmol/L [facility] BUN 13 6 - 19 mg/dL [facility] CREATININE 0.60 0.5 - 1.5 mg/dL [facility] GLUCOSE 105(H) 70 - 99 mg/dL [facility] CALCIUM 9.3 8.4 - 10.3 mg/dL [facility] EGFR >120 >59 mL/min/1.7 3m2 [facility] Comment:Estimated glomerular filtration rate calculated using the CKD-EPI refit equation. ANION GAP 15 10 - 20 mmol/L [facility] Blood 10/11/2021 11:3 7 AM EDT 10/11/2021 11:44 AM EDT us Patrick Lee MD LAB BLOOD ORDERABLES Final Resul t [facility] [address] [place] [address] from Last 3 Months or Most Recently Relevant to Health Maintenance Insurance [facility] [place] [address] [place] [id number] [address] [place] [address] [place] [address] [place] [address] [facility] [facility] A[facility] Care Teams C.O.D. Biller Relationship Specialty Start Date End Date Doni Cazares MD [address] [place] [address] [place] [address] PCP - General Internal Medicine 10/10/21 Additional Source Comments The information contained in this document represents components of the legal health record. It is not the complete legal health record.[facility]
--- NOTE | 2024-10-01 10:20 | A.OFFVIS_ITS ---
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 SWL vs MWL BMI 39.1 Allergies No Known Allergies (No Known Allergies*) Allergy (Verified 10/01/24 10:22) Medication List - Last Reconciled 10/01/24 by Payam Duque MD albuterol sulfate 90 mcg/actuation 2 puffs PO Q6H PRN alprazolam 1 mg PO TID PRN hydrochlorothiazide 25 mg PO DAILY levothyroxine 88 mcg PO DAILY lisinopril 20 mg PO DAILY omeprazole 20 mg PO DAILY 90 days thiamine HCl (vitamin B1) 100 mg PO DAILY HPI HPI TV 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 NEONATOLOGY SWL vs MWL BMI 39.1: Details: Start time: 10.17am, End time: 11.02am I spent 40 minutes speaking with the patient on the phone plus an additional 5 minutes reviewing and updating records for a total of 45 minutes HPI Comments Details: Previous weight loss efforts: Keto diet, intermittent fasting Wakes up: 5am, Sleeps: 9pm Breakfast: 6am (eggs) Lunch: 12pm (salad, sandwich) Dinner: 6pm (chicken, or steak with vegetables, pasta) Snacks: none Exercise: none Beverages: Coffee: not often, Tea: 3-4/wk with lemon juice, Soda: none, Juice: none, ETOH: quit 4 months ago PFSH Medical History (Updated 10/01/24 @ 10:55 by Payam Duque MD) GERD (gastroesophageal reflux disease) BMI 39.0-39.9,adult Obesity Alcoholic hepatitis Alcohol dependence Depression Anxiety Hypertension Surgical History (Updated 09/04/24 @ 09:26 by Mary Chappell CMA) Hx of bladder endoscopy No history of previous surgery Family History Mother No problems noted. Father No problems noted. Other Mental health disorder Substance use disorder Social History (Updated 09/04/24 @ 09:26 by Mary Chappell CMA) Housing: Condominium Alcohol intake: former Patient Tobacco Use Status: Current everyday Tobacco user Tobacco use type: Cigarette Cigarette Packs Per Day: 0.25 Cigarettes Per Day: 4 e-Cigarette/Vaping Use: Never Used Second Hand Smoke Exposure: Yes Substance Use Type: Marijuana service: No Current occupational status: unemployed and disabled Cognitive needs: No Hearing needs: No Vision needs: No Telehealth Telehealth Telehealth Platform: Telephone Location of provider rendering services: practice address Location of patient: address on file Patient Identification confirmed using: Name, : Yes Telehealth method: voice only Patient verbally consented to treatment: Yes Patient verbally consented to billing insurance company: Yes Patient informed of any privacy concerns related to visit: Yes Minutes spent on Phone/Video with Pt.: 45 Assessment & Plan Assessment & Plan (1) Obesity: Code(s): E66.9 - Obesity, unspecified Category: Medical Qualifiers: Obesity type: due to excess calories Obesity classification: adult class 2 (BMI 35 - 39.9) Serious obesity comorbidity presence: with serious comorbidity Body mass index: BMI 39.0-39.9 Qualified Code(s): E66.812 - Obesity, class 2; E66.01 - Morbid (severe) obesity due to excess calories; Z68.39 - Body mass index [BMI] 39.0-39.9, adult Plan: 1.Nutritional counseling. Start with one premade PREMIER protein (buy at [employer] or [employer] or [employer]) shake (8oz of PREMIER and NOT the whole bottle) at 6am-8am, 1 protein bar (16gr Fit Crunch protein bars, buy at [employer] or [employer]) at 9am-11am, another premade PREMIER protein (buy at [employer], or [employer]) shake (8oz of PREMIER and NOT the whole bottle) at 12pm-2pm, another Fit Crunch protein bar at 3pm-5pm, dinner at 6pm (10 forks of protein and 10 forks of salad/vegetables) and one more Fit Crunch protein bar after dinner at 7pm-9pm. So you do 2 protein shakes, 3 protein bars and one meal per day. Meal to include lean meat (beef, fish, pork, turkey, chicken), or anguillan yogurt, or egg whites, or beans with a salad with olive oil and fruits (berries, pears, apples, kiwi). Avoid salt, breads, potatoes, rice, pasta, desserts. 2. Each shake would be drunk slowly, like coffee in a period of 2 hours. 3. Cut each bar in 4 pieces and eat each piece in 30min to make each bar last 2 hours. 4. I emphasized the importance of measuring accurately the food portion and measure it when serving the food in plate 5. The meal portions include 10 full-size forks of meat and 10 full-size forks of salad. You always eat the meat portion but you can replace up to 5 forks for salad/vegetables with rice, potatoes or pasta, or a fruit if you like. The less you do it the better weight loss will be. 6. One full-size fork is what it can be scooped on the fork without falling aside and not what can be bit with the fork. Use regular forks like those you find in a typical restaurant. 7. Please buy the body composition scale we discussed and send me weight measurements as soon as possible and then once a week. Always include your diet and exercise plan. 8. Start walking outside daily, tracking calories with a goal of 300 calories per day, daily. Goal is to burn 2000 calories per week on exercise, which means either 300 calories daily, 9. The best choice would be to purchase a stationary bike, elliptical or treadmill at home that can track calories. Let me know if you do so I can give you an exercise plan. 10. Goal is to lose at least 1.5-2lbs per week 11. Goal to lose at least 10% of your weight, which is about 30lbs. Minimum weight goal: 250lbs 12. Please follow the diet plan exactly without any change. If you don't like something about the plan or you feel hungry you need to communicate with me so I can help you revise the plan. You should not change the plan yourself 13. When you begin the meal plan, please send me a picture of your meal plate after you measure it, but before you consume it.
[2024-10-01 10:32] VITALS: BMI 39.1
== END 2024-10-01 11:03 | disposition home or self-care (01) ==
LOC: HO.HBS 08:18
PROVIDERS: Visit Provider Surgery
DX: E66.812 Obesity, class 2 (principal); E66.01 Morbid (severe) obesity due to excess calories; Z68.39 Body mass index [BMI] 39.0-39.9, adult
CPT/HCPCS: 99204

== ENCOUNTER 2024-10-31 10:55 | Outpatient (AMB) | payer OTHER, SELFPAY ==
[2024-10-31 11:03] VITALS: BP 110/70; PULSE 73; RESP 18; TEMP 37.2; O2SAT 97; BMI 39.0
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
--- OUTSIDE RECORDS SUMMARY | 2024-10-31 12:21 | XMS_ITS | Clinical Summary ---
Author Organization [facility] Address [address] [place] [id number] Phone Care Team Providers Care General Dentist/Owner Name Role Phone Doni Cazares MD Primary Care Provider Allergies No known active allergies Medications ondansetron [...] EDT) SODIUM 136 133 - 146 mmol/L [facility] CHLORIDE 98 96 - 108 mmol/L [facility] POTASSIUM 3.6 3.3 - 5.1 mmol/L [facility] Comment:Specimen slightly he molyzed, result may be falsely elevated. CO2 27 21 - 35 mmol/L [facility] BUN 13 6 - 19 mg/dL [facility] CREATININE 0.60 0.5 - 1.5 mg/dL [facility] GLUCOSE 105(H) 70 - 99 mg/dL [facility] CALCIUM 9.3 8.4 - 10.3 mg/dL [facility] EGFR >120 >59 mL/min/1.7 3m2 [facility] Comment:Estimated glomerular filtration rate calculated using the CKD-EPI refit equation. ANION GAP 15 10 - 20 mmol/L [facility] Blood 10/11/2021 11:3 7 AM EDT 10/11/2021 11:44 AM EDT us Patrick Lee MD LAB BLOOD ORDERABLES Final Resul t [facility] [address] [place] [address] from Last 3 Months or Most Recently Relevant to Health Maintenance Insurance [facility] [place] [address] [place] [address] [place] [address] [place] [address] [place] [address] [place] [address] [employer] [facility] Care Teams General Dentist/Owner Relationship Specialty Start Date End Date Doni Cazares MD [address] [place] [address] [place] [address] PCP - General Internal Medicine 10/10/21 Additional Source Comments The information contained in this document represents components of the legal health record. It is not the complete legal health record.[facility]
== END 2024-10-31 11:42 | disposition home or self-care (01) ==
LOC: HO.HMCH 10:55
DX: E03.9 Hypothyroidism, unspecified (principal); K70.10 Alcoholic hepatitis without ascites; E66.01 Morbid (severe) obesity due to excess calories; Z68.39 Body mass index [BMI] 39.0-39.9, adult; I10 Essential (primary) hypertension; J45.909 Unspecified asthma, uncomplicated; F33.9 Major depressive disorder, recurrent, unspecified; F41.9 Anxiety disorder, unspecified; E66.812 Obesity, class 2; R40.0 Somnolence; R53.83 Other fatigue

== ENCOUNTER 2024-10-31 10:55 | Outpatient (REF) | payer OTHER, SELFPAY ==
[2024-10-31 12:13] LABS: MANUAL DIFF FLAG NO
[2024-10-31 12:28] LABS: Hematocrit 48.8 % (42.0-52.0); Hemoglobin 16.3 g/dl (14.0-18.0); Imm Gran Abs Auto 0.03 X10*3/uL (0.00-0.03); Imm Gran Pct Auto 0.4 % (0.0-0.4); Lymphocytes Absolute Auto 2.6 X10*3/uL (1.2-4.9); Mean Corpuscular HGB Conc 33.4 g/dl (31.0-36.0); Mean Corpuscular Hemoglobin 31.4 pg (27.0-33.0); Mean Corpuscular Volume 94.0 fL (80.0-98.0); NRBC Abs Auto 0.000 X10*3/uL (0.0-0.012); NRBC Pct Auto 0.0 /100WBC (0.0-0.2); Platelet Count 392 X10*3/uL (160-400); Red Blood Count 5.19 X10*6/uL (4.60-5.80); White Blood Count 7.8 X10*3/uL (4.8-10.8)
[2024-10-31 12:48] LABS: Appearance Urine Clear; Glucose Urine UA Negative (Negative); PH 5.5 (5.0-9.0); Specific Gravity - Urine 1.015 (1.005-1.025)
[2024-10-31 12:58] LABS: Alanine Aminotransferase 26 U/L (0-40); Albumin Level 4.6 g/dL (3.5-5.0); Alkaline Phosphatase 77 U/L (39-117); Anion Gap 12 (12-20); Aspartate Amino Transferase 26 U/L (5-37); Blood Urea Nitrogen 15 mg/dL (9-16); Calcium 9.7 mg/dL (8.4-10.2); Carbon Dioxide 25 mmol/L (22-29); Chloride 105 mmol/L (96-108); Cholesterol 224 mg/dL (<200); Estimated Glomerular Filt Rate > 60; HDL Cholesterol 35 mg/dL (>40); Potassium 4.5 mmol/L (3.3-5.1); Sodium 137 mmol/L (135-145); Total Protein 7.2 g/dL (6.5-8.0); Triglycerides 95 mg/dL (<150)
[2024-10-31 13:15] LABS: Free T4 (Free Thyroxine) 0.91 ng/dL (0.71-1.85)
[2024-10-31 13:25] LABS: Folate 8.7 ng/mL (> or = 4.0); Vitamin B12 576 pg/mL (200-900)
[2024-11-07 15:59] LABS: Testosterone, Free 75.0 pg/mL (35.0-155.0)
== END 2024-10-31 10:56 | disposition home or self-care (01) ==
LOC: HO.LAB 10:55
DX: F33.9 Major depressive disorder, recurrent, unspecified (principal); E66.812 Obesity, class 2; E66.01 Morbid (severe) obesity due to excess calories; R40.0 Somnolence; E03.9 Hypothyroidism, unspecified; I10 Essential (primary) hypertension; J45.909 Unspecified asthma, uncomplicated; R53.83 Other fatigue; F41.9 Anxiety disorder, unspecified; F17.210 Nicotine dependence, cigarettes, uncomplicated; K70.10 Alcoholic hepatitis without ascites; Z68.39 Body mass index [BMI] 39.0-39.9, adult; Z79.890 Hormone replacement therapy; Z79.899 Other long term (current) drug therapy
CPT/HCPCS: 36415; 80053; 80061; 81003; 82306; 82533; 82607; 82746; 84402; 84403; 84439; 84443; 85025; 99212

== ENCOUNTER → 2025-01-16 10:02 | Outpatient (REF) | payer OTHER, SELFPAY | LOC: HO.SL 10:02 | DX: G47.33 Obstructive sleep apnea (adult) (pediatric) (principal); R53.83 Other fatigue; R40.0 Somnolence | CPT/HCPCS: 95806 ==

== ENCOUNTER 2025-02-03 09:11 | Outpatient (AMB) | payer OTHER, SELFPAY ==
[2025-02-03 09:14] VITALS: BP 130/78; PULSE 101; RESP 18; O2SAT 98; BMI 38.6
--- NOTE | 2025-02-03 09:14 | A.OFFPC_ITS ---
Vital Signs 02/03/25 09:14 Height 5 ft 11 in Weight 276 lb 8 oz BMI 38.6 BP 130/78 Blood Pressure Location Lt brachial Position Sitting Respiration 18 Pulse 101 H Pulse Source Pulse Oximeter Temp Source Temporal Artery Scan Pulse Oximetry (%) 98 Oxygen Delivery Method Room Air Intake Visit Reasons: 3 mo fatigue/hypothyroid/htn/hld Postulant Required: No Accompanied by: Self / Same As Patient Allergies No Known Allergies (No Known Allergies*) Allergy (Verified 02/03/25 09:26) Medication List - Last Reconciled 02/03/25 by CELESTINO Naranjo albuterol sulfate 90 mcg/actuation 2 puffs PO Q6H PRN alprazolam 1 mg PO TID PRN hydrochlorothiazide 25 mg PO DAILY levothyroxine 88 mcg PO DAILY lisinopril 20 mg PO DAILY omeprazole 20 mg PO DAILY 90 days thiamine HCl (vitamin B1) 100 mg PO DAILY Tobacco use date assessed: 02/03/25 Dental Screening Dental Screen Date: 02/03/25 Did you have a dental visit in the last 12 months?: No Did you have a dental problem in the last 6 months where you did not have access to dental care?: No Was dental information given to patient?: Patient has dentist HPI 3 mo fatigue/hypothyroid/htn/hld HPI Details The patient is a 34-year-old male presenting for fatigue, hypothyroidism, hypertension, HLD follow up Patient reports that he is feeling tired because he did not sleep well last night Recent completed sleep study that showed mild ELEUTERIO with recommendations of conservative measures The patient testosterone, and cortisol was evaluated and are within normal limits Ongoing major depression and anxiety for which is he is taking xanax 1 mg tid PRN On his previous visit he declined being referred to a psychiatrist. Stating that he had tried all the different types of medications, gone to therapy and nothing helped Today the patient reports that he is planning on seeing a psychiatrist/therapist for the new year He is also concern about his weight, currently he had lost 3 lbs since 3 months ago-He is interested in trying Metformin to increase his insulin sensitivity and indirectly increasing his metabolism HIs labs were reviewed. Cholesterol continues to be elevated and had increased since last labs. Liver enzymes have normalized since-reports that he decreased alcohol significantly [facility] Medical History GERD (gastroesophageal reflux disease) BMI 39.0-39.9,adult Obesity Alcoholic hepatitis Alcohol dependence Depression Anxiety Hypertension Surgical History Hx of bladder endoscopy No history of previous surgery Family History Mother No problems noted. Father No problems noted. Other Mental health disorder Substance use disorder Social History Housing: Condominium Alcohol intake: former Patient Tobacco Use Status: Current everyday Tobacco user Tobacco use type: Cigarette Cigarette Packs Per Day: 0.25 Cigarettes Per Day: 4 e-Cigarette/Vaping Use: Never Used Second Hand Smoke Exposure: Yes Substance Use Type: Marijuana service: No Current occupational status: unemployed and disabled Cognitive needs: No Hearing needs: No Vision needs: No Questionnaire PHQ-9 Over the last 2 weeks, how often have you been bothered by any of the following problems? Depression Screening Interpretation: Positive Depression Screening Done: Yes Source: Developed by Drs. Julio C Aguilar, Caitlyn Jimenez, Francisco Javier Olson and colleagues, with an educational miguel from [employer]. Thrive Questionnaire Date Thrive assessed: 05/06/24 I am a: Patient What is your living situation today?: I have a steady place to live Within the past 12 months, did the food you bought not last and you didn't have the money to get more?: Often true Within the past 12 months, did you worry whether your food would run out before you got money to buy more?: Often true Do you have trouble paying for medicines?: No Do you have trouble getting transportation to medical appointments?: No Do you have trouble paying your heating and electricity bill?: No Do you have trouble taking care of your child, family member or friend?: No Do you have trouble with day-to-day activities such as bathing, preparing meals, shopping, managing finances, etc.?: No Are you currently unemployed and looking for a job?: I choose not to answer this question Are you interested in more education?: I choose not to answer this question Please select the resources that you would like help with: Food Currently or been in a relationship where the following occur: No concerns reported THRIVE Score: 2 ARNALDO-7 AMB Questionnaire ARNALDO-7 Date ARNALDO - 7 assessed: 10/31/24 Source: Developed by Drs. Julio C Aguilar, Caitlyn Jimenez, Francisco Javier Olson and colleagues, with an educational miguel from [employer]. Review of Systems Narrative Review of Systems - Psychiatric: Reports anxiety and a history of depression. Const Reports fatigue and Denies headache(s) Eyes Denies loss of vision ENT Denies vertigo, Denies dizziness, Denies headache(s) and Denies sore throat Card Denies chest pain, Denies leg edema and Denies lightheadedness Resp Denies cough, Denies hemoptysis and Denies wheezing GI Denies abdominal pain, Denies melena, Denies constipation, Denies diarrhea and Denies vomiting Denies dysuria, Denies urinary frequency and Denies urinary urgency Musc Denies arthralgias, Denies joint swelling, Denies numbness and Denies tingling Neuro Denies Abnormal speech present, Denies behavioral changes, Denies vertigo, Denies dizziness, Denies headache(s), Denies loss of vision, Denies memory loss, Denies numbness and Denies tingling Psych Denies anxiety, Denies behavioral changes, Denies depression, Denies memory loss and Denies panic attacks Endo Reports fatigue Dominic/Lymph Denies easy bleeding and Denies easy bruising Aller/Immun Denies wheezing Physical exam (Primary Care) Vital Signs: Last Vital Signs Pulse 101 H 02/03/25 09:14 Resp 18 02/03/25 09:14 BP 130/78 02/03/25 09:14 Pulse Ox 98 02/03/25 09:14 Oxygen Delivery Method Room Air 02/03/25 09:14 BMI result Body Mass Index 38.6 Tobacco/Smoking Status: Tobacco use Status Tobacco use date assessed 02/03/25 02/03/25 09:19 Patient Tobacco Use Status Current everyday Tobacco 02/03/25 09:19 Tobacco use type Cigarette 02/03/25 09:19 e-Cigarette/Vaping Use Never Used 02/03/25 09:19 Depression Screening Interpretation: Positive Thrive Assessment: Date of Thrive Assessment Date Thrive assessed 05/06/24 02/03/25 09:19 Currently or been in a relationship where the following occur: No concerns reported Narrative Physical Exam - Respiratory: Lungs clear to auscultation. Const General: healthy appearing, no acute distress, alert and awake Nutritional Appearance: well nourished Orientation/consciousness: oriented to person, oriented to place and oriented to time HENMT Ears: TM's normal bilaterally General nose exam: Normal nasal mucous membranes and turbinates present Eyes Conjunctivae: conjunctivae normal Sclerae: sclerae normal Pupils: Equal, round and reactive pupils present Neck Neck: Yes no lymphadenopathy and Yes no JVD Thyroid: Thyroid normal Carotids: no bruits Resp Effort & Inspection: normal respiratory effort and not tachypneic Auscultation: no crackles, no rales, no rhonchi and no wheezes Cardio Rate: regular rate Rhythm: regular rhythm Heart sounds: no murmurs and normal S1 and S2 GI Palpation (GI): Soft to palpation, nontender, no hepatomegaly and no splenomegaly Auscultation: normal bowel sounds General: Yes no CVA tenderness Back/Spine/Pelvis Back: no CVA tenderness Skin General skin exam: no rashes or lesions noted and dry skin Neuro General: oriented to person, oriented to place and oriented to time Cranial nerves: Yes Equal, round and reactive pupils present Speech: No Abnormal speech present Gait exam (Neuro): Normal gait present Motor exam (neuro): no tremor noted Extrem Right upper extremity: full ROM Left upper extremity: full ROM Right lower extremity: full ROM; no edema Left lower extremity: full ROM; no edema Psych Mental Status: mental status grossly normal Speech and movement: Normal speech and movement present Affect: normal affect Attitude: cooperative Thought process: Normal thought process present Results Reviewed Results Reviewed: Laboratory Tests 10/31/24 10/31/24 12:03 12:11 WBC 7.8 RBC 5.19 Hgb 16.3 Hct 48.8 MCV 94.0 MCH 31.4 MCHC 33.4 RDW 13.4 Plt Count 392 Sodium 137 Potassium 4.5 Chloride 105 Carbon Dioxide 25 Anion Gap 12 BUN 15 Creatinine 0.65 Estimated GFR > 60 Fasting Glucose 94 Calcium 9.7 Total Bilirubin 0.3 AST 26 ALT 26 Alkaline Phosphatase 77 Total Protein 7.2 Albumin 4.6 Triglycerides 95 Cholesterol 224 H LDL Cholesterol, Calc 170 H HDL Cholesterol 35 L Vitamin B12 576 25-OH Vitamin D Total 32.9 Folate 8.7 TSH 3.98 Free T4 0.91 Total Testosterone 610 Fr Testosterone Dialys 75.0 Random Cortisol 8.3 Urine Color Yellow Urine Appearance Clear Urine pH 5.5 Ur Specific [place] 1.015 Urine Protein Negative Urine Glucose (UA) Negative Urine Ketones Negative Urine Blood Negative Urine Nitrite Negative Ur Leukocyte Esterase Negative Coding Level of Care Code Est Pt Level 4 (03315) Diagnoses Hypothyroidism (acquired) E03.9 Hypertension, unspecified type I10 Hypertension type: unspecified Asthma, unspecified asthma severity, unspecified whether complicated, unspecified whether persistent J45.909 Asthma complication type: unspecified Asthma persistence: unspecified Asthma severity: unspecified severity Recurrent major depressive disorder, remission status unspecified F33.9 Active/Remission status: remission status unspecified Anxiety F41.9 Alcoholic hepatitis without ascites K70.10 Ascites presence: without ascites Class 2 severe obesity due to excess calories with serious comorbidity and body mass index (BMI) of 39.0 to 39.9 in adult E66.812; E66.01; Z68.39 Body mass index: BMI 39.0-39.9 Obesity classification: adult class 2 (BMI 35 - 39.9) Obesity type: due to excess calories Serious obesity comorbidity presence: with serious comorbidity Daytime sleepiness R40.0 Fatigue, unspecified type R53.83 Fatigue type: unspecified Hyperlipidemia, unspecified hyperlipidemia type E78.5 Hyperlipidemia type: unspecified Time Spent (min) 39 Assessment & Plan Assessment & Plan (1) Hypothyroidism (acquired): Code(s): E03.9 - Hypothyroidism, unspecified Category: Medical Plan: Euthyroidism on labs Continue levothyroxine 88 mcg daily We will rechecking thyroid function in 3 months (2) Hypertension: Code(s): I10 - Essential (primary) hypertension Category: Medical Qualifiers: Hypertension type: unspecified Qualified Code(s): I10 - Essential (primary) hypertension Plan: BP 130/70 Reinforced diet dash diet-systolic goal of less than 130 mm Continue lisinopril 20 mg daily, hydrochlorothiazide 25 mg daily (3) Asthma: Code(s): J45.909 - Unspecified asthma, uncomplicated Category: Medical Qualifiers: Asthma complication type: unspecified Asthma persistence: unspecified Asthma severity: unspecified severity Qualified Code(s): J45.909 - Unspecified asthma, uncomplicated Plan: Stable. Continue albuterol sulfate 90 mcg/actuation 2 puffs QH p.r.n. (4) Major depressive disorder, recurrent: Code(s): F33.9 - Major depressive disorder, recurrent, unspecified Category: Medical Qualifiers: Active/Remission status: remission status unspecified Qualified Code(s): F33.9 - Major depressive disorder, recurrent, unspecified Plan: Reports a longstanding history of dealing with therapist and psychiatrist. Reports that he was placed on different medications intermittently, which none of these medications worked for him. He is currently on alprazolam 1 mg t.i.d. p.r.n. declined referral therapist/psychiatrist. However: The patient reports that he is planning on possibly seen a new psychiatrist and/or therapist for the new year. We will continue to encourage the patient. Denies SI/HI (5) Anxiety: Code(s): F41.9 - Anxiety disorder, unspecified Category: Medical Plan: Same as above (6) Alcoholic hepatitis: Comment: needs to stop alcohol; do labs; 20 mon reviewing chart examining patient and charting Code(s): K70.10 - Alcoholic hepatitis without ascites Category: Medical Qualifiers: Ascites presence: without ascites Qualified Code(s): K70.10 - Alcoholic hepatitis without ascites Plan: The patient reports stopped drinking recently. His ALT went from 174-72 and AST from 132-42, and has normalized on his recent labs. Reinforced continuation of alcohol cessation and working on decreasing his cholesterol and weight. Both will improve his liver function. He also stopped taking his folic acid 1 mg daily. Folate level is normal on recent labs. We will continue to monitor (7) Obesity: Code(s): E66.9 - Obesity, unspecified Category: Medical Qualifiers: Body mass index: BMI 39.0-39.9 Obesity classification: adult class 2 (BMI 35 - 39.9) Obesity type: due to excess calories Serious obesity comorbidity presence: with serious comorbidity Qualified Code(s): E66.812 - Obesity, class 2; E66.01 - Morbid (severe) obesity due to excess calories; Z68.39 - Body mass index [BMI] 39.0-39.9, adult Plan: Encouraged to exercise for at least 30 minutes a day/5 days a week Healthy eating discussed. Encouraged to eat fruits/vegetables, protein- fish/baked chicken, and to avoid salty/fried foods, sweets, caffeine and carbohydrates. Encouraged to increase water intake 6-8 glasses a day On is previous visit, he reports that he has been change in his diet and he is questioning if this might be related to abnormal cortisol level. A random cortisol level was added to his labs, which is normal. Discussed weight management/treatments with the patient. SDM: We will started the patient on metformin with 500 mg b.i.d. to help with insulin sensitivity and indirectly increasing metabolism. Instructed the patient to start 500 mg daily for 2 weeks then switch to 2 times a day. (8) Daytime sleepiness: Code(s): R40.0 - Somnolence Category: Medical Plan: Home sleep study shows mild ELEUTERIO with conservative recommendation, like showing proper sleep hygiene, losing weight, etc. (9) Fatigue: Code(s): R53.83 - Other fatigue Category: Medical Qualifiers: Fatigue type: unspecified Qualified Code(s): R53.83 - Other fatigue Plan: Same as above (10) HLD (hyperlipidemia): Code(s): E78.5 - Hyperlipidemia, unspecified Category: Medical Qualifiers: Hyperlipidemia type: unspecified Qualified Code(s): E78.5 - Hyperlipidemia, unspecified Plan: Total cholesterol increased from 185-224, LDL increased from 133-170. Reinforced low-cholesterol diet Start atorvastatin 10 mg at bedtime We will recheck lipid panel in 3 months Plan Plan Patient was informed and verbally consented to the use of an ambient scribe for clinic note documentation during this visit. 1. Hyperlipidemia The risks and benefits of starting a statin for hyperlipidemia were discussed. The patient's concerns regarding side effects such as muscle aches, cognitive decline, and liver toxicity were addressed, emphasizing that the risk of stroke from untreated cholesterol is more significant. The patient agreed to start a cholesterol medication and will be monitored for adverse effects. 2. Obesity We discussed weight management, and the patient expressed interest in trying metformin. It was explained that metformin can help with weight loss by increasing insulin sensitivity. We also discussed the risks associated with improper use of other popular weight loss medications, such as semaglutide, and the importance of proper screening and slow dose titration. A prescription for metformin will be provided with instructions to start once a day for two weeks before increasing to twice a day. 3. Anxiety The patient has a history of anxiety and depression, with poor response to past trials of SSRIs. The patient is considering a return to therapy for mental health support. Will continue as-needed medication for anxiety and encouraged pursuit of psychotherapy. Discussion Notes I discussed the management of hyperlipidemia with the patient, reviewing the risks of untreated high cholesterol, such as stroke, against the potential side effects of statin medications like muscle aches and liver issues. After addressing the patient's concerns, we agreed to start a statin, and I assured the patient that we would monitor for any adverse effects. We also discussed weight management options, and I explained that metformin works by increasing insulin sensitivity and can assist with weight loss. I con trasted this with other popular weight loss drugs, emphasizing the importance of proper medical screening for contraindications like a history of pancreatitis or thyroid cancer, and the necessity of slow dose titration to minimize side effects. The patient agreed to start metformin with a gradual titration schedule. I recommended the patient complete full blood work and follow up in three months to monitor progress and medication tolerance. Patient Instructions - You will start a new medication for cholesterol. - You will start taking Metformin. - For the first two weeks, take one Metformin pill once a day. - After two weeks, you can increase to taking one pill twice a day, as prescribed. - Please get a full blood test done. - You should schedule a follow-up visit in three months. - It is recommended that you consider returning to therapy to help with stress and anxiety. Orders: Orders Complete Blood Count Auto Diff 3 Months E03.9 - Hypothyroidism, unspecified, E66.01 - Morbid (severe) obesity due to excess calories, E66.812 - Obesity, class 2, F10.20 - Alcohol dependence, uncomplicated, F32.9 - Major depressive disorder, single episode, unspecified, F41.9 - Anxiety disorder, unspecified, I10 - Essential (primary) hypertension, J45.909 - Unspecified asthma, uncompli cated, K21.9 - Gastro-esophageal reflux disease without esophagitis, K70.10 - Alcoholic hepatitis without ascites, R53.83 - Other fatigue, Z68.39 - Body mass index [BMI] 39.0-39.9, adult Lipid Panel 3 Months E03.9 - Hypothyroidism, unspecified, E66.01 - Morbid (severe) obesity due to excess calories, E66.812 - Obesity, class 2, F10.20 - Alcohol dependence, uncomplicated, F32.9 - Major depressive disorder, single episode, unspecified, F41.9 - Anxiety disorder, unspecified, I10 - Essential (primary) hypertension, J45.909 - Unspecified asthma, uncomplicated, K21.9 - Gas tro-esophageal reflux disease without esophagitis, K70.10 - Alcoholic hepatitis without ascites, R53.83 - Other fatigue, Z68.39 - Body mass index [BMI] 39.0- 39.9, adult UA CC w/rflx Micro + Cult 3 Months E03.9 - Hypothyroidism, unspecified, E66.01 - Morbid (severe) obesity due to excess calories, E66.812 - Obesity, class 2, F10.20 - Alcohol dependence, uncomplicated, F32.9 - Major depressive disorder, single episode, unspecified, F41.9 - Anxiety disorder, unspecified, I10 - Essential (primary) hypertension, J45.909 - Unspecified asthma, uncomplicated, K21.9 - Gastro-esophageal reflux disease without esophagitis, K70.10 - Alcoholic hepatitis without ascites, R53.83 - Other fatigue, Z68.39 - Body mass index [BMI] 39.0-39.9, adult Comprehensive [place]. Panel Fast 3 Months E03.9 - Hypothyroidism, unspecified, E66.01 - Morbid (severe) obesity due to excess calories, E66.812 - Obesity, class 2, F10.20 - Alcohol dependence, uncomplicated, F32.9 - Major depressive disorder, single episode, unspecified, F41.9 - Anxiety disorder, unspecified, I10 - Essential (primary) hypertension, J45.909 - Unspecified asthma, uncomplicated, K21.9 - Gastro-esophageal reflux disease without esophagitis, K70.10 - Alcoholic hepatitis without ascites, R53.83 - Other fatigue, Z68.39 - Body mass index [BMI] 39.0-39.9, adult TSH reflex Free T4 3 Months E03.9 - Hypothyroidism, unspecified, E66.01 - Morbid (severe) obesity due to excess calories, E66.812 - Obesity, class 2, F10.20 - Alcohol dependence, uncomplicated, F32.9 - Major depressive disorder, single episode, unspecified, F41.9 - Anxiety disorder, unspecified, I10 - Essential (primary) hypertension, J45.909 - Unspecified asthma, uncomplicated, K21.9 - Gastro-esophageal reflux disease without esophagitis, K70.10 - Alcoholic hepatitis without ascites, R53.83 - Other fatigue, Z68.39 - Body mass index [BMI] 39.0-39.9, adult Vitamin D 25-OH Total 3 Months E03.9 - Hypothyroidism, unspecified, E66.01 - Morbid (severe) obesity due to excess calories, E66.812 - Obesity, class 2, F10.20 - Alcohol dependence, uncomplicated, F32.9 - Major depressive disorder, single episode, unspecified, F41.9 - Anxiety disorder, unspecified, I10 - Essential (primary) hypertension, J45.909 - Unspecified asthma, uncomplicated, K21.9 - Gastro-esophageal reflux disease without esophagitis, K70.10 - Alcoholic hepatitis without ascites, R53.83 - Other fatigue, Z68.39 - Body mass index [BMI] 39.0-39.9, adult Free T4 (Free Thyroxine) 3 Months E03.9 - Hypothyroidism, unspecified, E66.01 - Morbid (severe) obesity due to excess calories, E66.812 - Obesity, class 2, F10.20 - Alcohol dependence, uncomplicated, F32.9 - Major depressive disorder, single episode, unspecified, F41.9 - Anxiety disorder, unspecified, I10 - Essential (primary) hypertension, J45.909 - Unspecified asthma, uncomplicated, K21.9 - Gastro-esophageal reflux disease without esophagitis, K70.10 - Alcoholic hepatitis without ascites, R53.83 - Other fatigue, Z68.39 - Body mass index [BMI] 39.0-39.9, adult Medications: New atorvastatin (Lipitor) 10 mg PO BEDTIME 90 tabs 3RF metformin 500 mg PO BID 90 tabs 3RF
--- OUTSIDE RECORDS SUMMARY | 2025-02-03 10:53 | XMS_ITS | Clinical Summary ---
Author Organization [facility] Address [address] [place] [id number] Phone Care Team Providers Care Risk Compliance Analyst Name Role Phone Doin Cazares MD Primary Care Provider [phone] Allergies No known active allergies Medications ondansetron [...] 10/11/2021, 10/10/2021 POTASSIUM LEVEL 10/11/2022 10/11/2021, 10/10/2021 INFLUENZA VACCINE (#1) 2024 03/17/2008 COVID-19 VACCINE ( season) 2024 HIB VACCINES Completed 03/05/1994, 06/06, 05/03/1993, Additional [...] Date/Time Associated Diagnosis Comments BASIC METABOLIC PANEL (BMP) STAT 10/11/2021 11:37 AM EDT from Last 3 Months or Most Recently Relevant to Health Maintenance Results * (ABNORMAL) Basic metabolic panel (10/11/2021 11:37 AM EDT) SODIUM 136 133 - 146 mmol/L [facility] CHLORIDE 98 96 - 108 mmol/L [facility] POTASSIUM 3.6 3.3 - 5.1 mmol/L [facility] Comment:Specimen slightly he molyzed, result may be falsely elevated. CO2 27 21 - 35 mmol/L [facility] BUN 13 6 - 19 mg/dL [facility] CREATININE 0.60 0.5 - 1.5 mg/dL [facility] GLUCOSE 105(H) 70 - 99 mg/dL [facility] CALCIUM 9.3 8.4 - 10.3 mg/dL [facility] EGFR >120 >59 mL/min/1.7 3m2 [facility] Comment:Estimated glomerular filtration rate calculated using the CKD-EPI refit equation. ANION GAP 15 10 - 20 mmol/L [facility] Blood 10/11/2021 11:3 7 AM EDT 10/11/2021 11:44 AM EDT us Patrick Lee MD LAB BLOOD BKR ORDERABLES Final R esult [facility] [address], [place] [id number] from Last 3 Months or Most Recently Relevant to Health Maintenance [place] [address] [place] [address] [employer] [facility] [place] [address] [place] [address] [place] [address] [employer] [facility] [place] [address] [place] [address] [employer] [facility] [facility] [employer] [place] [id number] Care Teams Risk Compliance Analyst Relationship Specialty Start Date End Date Doni Cazares MD [address] [place] [id number] PCP - General Internal Medicine 10/10/21 Additional Source Comments The information contained in this document represents components of the legal health record. It is not the complete legal health record.[facility]
== END 2025-02-03 09:59 | disposition home or self-care (01) ==
LOC: HO.HMCH 09:11
DX: E03.9 Hypothyroidism, unspecified (principal); I10 Essential (primary) hypertension; J45.909 Unspecified asthma, uncomplicated; F33.9 Major depressive disorder, recurrent, unspecified; F41.9 Anxiety disorder, unspecified; K70.10 Alcoholic hepatitis without ascites; E66.812 Obesity, class 2; E66.01 Morbid (severe) obesity due to excess calories; Z68.39 Body mass index [BMI] 39.0-39.9, adult; R40.0 Somnolence; R53.83 Other fatigue; E78.5 Hyperlipidemia, unspecified

== ENCOUNTER → 2025-02-03 09:11 | Outpatient (BNVA) | payer OTHER, SELFPAY | DX: I10 Essential (primary) hypertension (principal); E03.9 Hypothyroidism, unspecified; J45.909 Unspecified asthma, uncomplicated; F33.9 Major depressive disorder, recurrent, unspecified; F41.9 Anxiety disorder, unspecified; K70.10 Alcoholic hepatitis without ascites; E66.812 Obesity, class 2; E66.01 Morbid (severe) obesity due to excess calories; R40.0 Somnolence; R53.83 Other fatigue; E78.5 Hyperlipidemia, unspecified; Z68.38 Body mass index [BMI] 38.0-38.9, adult | CPT/HCPCS: 99212 ==